=== PATIENT | female | born 1960 | race Caucasian/White ===

== ENCOUNTER 2025-01-28 13:16 | Outpatient (AMB) | payer MEDICARE, SELFPAY ==
--- OUTSIDE RECORDS SUMMARY | 2025-01-23 13:20 | XMS_ITS | Encounter Summary ---
Author Organization [facility] Address [address] [place] [address] [place] [id number] Phone Care Team Providers Care Film Processing Supervisor Name Role Phone Roger Frank MD Unavailable [phone] Edilma Chase MD Unavailable EileenPelon duffy MD Unavailable Pcp, Not Required Unavailable Unavailable Edilma Chase MD Primary Care Provider [phone] Edilma Chase MD Unavailable Reason for Visit * Reason Comments Dysuria * Consultation (Routine) - Authorized Specialty Diagnoses / Procedures Referred By Contrachelle t Referred To Contact Nurse Practitioner / Urgent Care Diagnoses uti Procedures UC VISIT Edilma Chase MD [address] [place] [address], [address] [place] [address] Phone: tel: fax: [email or web address] [facility] [address] [address] Phone: tel: fax: Referral ID Status Reason Start Date Expiration Date V isits Requested Visits Authorized [id number] Authorized 01/23/2025 01/23/2026 99 99 Encounter Details Date Type Department Care Team (Late st Contact Info) Description 01/23/2025 1:20 PM EDT Office Visit [facility] [address] [address] Sherly Contreras PA-C [address] [facility], 3rd [place] [address] Lucretia Dodson, [address] [place] [address] Dysuria (Primary Dx) Social History Tobacco Use Types Packs/Day Years Used Date Smoking Tobacco: Former Cigarettes 0.3 10 0 06/06/2007 - 06/06/2017 Smokeless Tobacco: Never Alcohol Use Standard Drinks/Week Comments Not Currently 2 (1 standard drink = 0.6 oz pur e alcohol) Child or Family Care Answer Date Record ed Do you have problems with on e of the following making it difficult for you to work, study, or receive health care? I choose not to answer 05/05/2024 Education Answer Date Recorded Are you interested in help w ith more adult education (for example, completing high school, GED, job training, learning the [place] language, technical skills, or developing parenting skills)? No 05/05/2024 Are you concerned about learning? Not on file 05/05/2024 No 05/05/2024 Yes 05/05/2024 Food Answer Date Recorded Within the past 6 months we worried whether our food would run out before we got money to buy more. Sometimes True 024 Within the past 6 months the food we bought just didn't last and we didn't have enough money to get more. Often True 04/08 Residential Stability Answer Date Recor ded What is your housing situation today? I have ramona mcdonald 05/05/2024 How many times have you move d in the past 12 months? Zero (I did not move) 05/05/2024 Paying for Meds Answer Date Recorded Do you have trouble paying for medicines? No 05/05/2024 Paying Utility Bills Answer Date Record ed Do you have trouble paying your heating or elect ricity bill? Yes 05/05/2024 Transportation Answer Date Recorded Has the lack of transportati on kept you from medical appointments or from getting medications? No 05/05/2024 Digital Access Answer Date Recorded No 05/05/2024 Yes 05/05/2024 Do you have reliable internet access at home? Ye s 05/05/2024 Do you have a device (e.g., phone, tablet, computer) with a working camera? Yes 05/05/2024 Intimate Partner Violence Answer Date R ecorded Are you denied basic needs s uch as food, clothing, or medical care? No 11/23/2024 In the past 12 months have y ou been in a relationship with a person who hurts, threatens, or tries to control you? No 11/23/2024 Are you denied basic needs s uch as food, clothing, or medical care? No 11/23/2024 In the past 12 months have y ou been in a relationship with a person who hurts, threatens, or tries to control you? No 11/23/2024 Comments No Sex and Gender Information Value Date Recorded Sex Assigned at Female 07/03/2018 1:57 PM EST Legal Sex Female 7:03 PM EST Gender Identity Female 07/03/2018 1:57 PM EST Sexual Orientation Straight 07/03/2018 1: 57 PM EST Occupation Industry Job Start Date Job End Date Retired nurse Not on file Not on file Not on file documented as of this encounter Last Filed Vital Signs Vital Sign Reading Time Taken Comments Blood Pressure 134/84 01/23/2025 1:24 PM EDT Pulse 63 01/23/2025 1:24 PM EDT Temperature 36 C (96.8 F) 01/23/2025 1:24 PM EDT Respiratory Rate 18 01/23/2025 1:24 PM EDT Oxygen Saturation 96% 01/23/2025 1:24 PM EDT Inhaled Oxygen Concentration - - Weight - - Height - - Body Mass Index - - documented in this encounter Patient Instructions * Patient Instructions* Lucretia Dodson NP - 01/23/2025 1:20 PM EDT Discharge Instructions: Pyelonephritis (Kidney Infection) Diagnosis: You have been diagnosed with a kidney infection (pyelonephritis). Medications Take Ciprofloxacin 500 mg by mouth every 12 hours for 7 days Do not skip doses. Finish the entire course even if you feel better. You may take acetaminophen (Tylenol) or ibuprofen for pain or fever unless told otherwise. Self-Care at Home Hydration: Drink plenty of fluids. Water helps flush out bacteria. Rest: Get adequate rest to support healing. Urination: Empty your bladder regularly; do not hold urine. Avoid alcohol while taking antibiotics. If prescribed antibiotics upset your stomach, take with food (but avoid dairy with ciprofloxacin, as it decreases absorption). Follow-Up Follow up with your healthcare provider in 48-72 hours or sooner if your symptoms do not improve. When to Seek Immediate Medical Care ?? Go to the ER or call 911 if you have: Fever >101 F (38.3 C) that does not improve with medication Worsening flank (back or side) pain Nausea or vomiting preventing you from keeping fluids or medications down Confusion, weakness, or dizziness Worsening burning or blood in your urine documented in this encounter Progress Notes * Lucretia Dodson NP - 01/23/2025 1:20 PM EDT SUBJECTIVE Patient ID: Camille Jacobson is a 64 y.o. female Chief Complaint: Dysuria HPI: Patient is a 64-year-old female presenting with 1 week of dysuria accompanied by right-sided back pain and chills. She reports that her symptoms have gradually worsened over the past week despite increasing her hydration and taking Tylenol and ibuprofen. She has a significant history of recurrent urinary tract infections and pyelonephritis, with her last UTI occurring approximately 6 months ago. She follows with urogynecology and has a standing prescription for prophylactic antibiotics with sexual activity. She has previously been hospitalized for severe UTI/pyelonephritis. She denies nausea,vomiting, abdominal pain, or vaginal symptoms. Review of Systems Constitutional: Denies fever. HEENT: Denies sinus congestion, sore throat, blurry vision Respiratory: Denies shortness of breath, cough. Cardiovascular: Denies chest pain, palpitations. Gastrointestinal: Denies abdominal pain, nausea, vomiting, constipation. Endocrine: Denies neck swelling. Genitourinary: Admits frequent urination, dysuria, Denies hematuria, difficulty urinating, flank pain. Musculoskeletal: Denies back pain. Skin: Denies rash. Neurological: Denies dizziness, headache. Hematological: Negative. Psychiatric/Behavioral: Negative. Vitals: 01/23/25 1324 BP: 134/84 Pulse: 63 Resp: 18 Temp: 36 ??C (96.8 ??F) TempSrc: Temporal SpO2: 96% OBJECTIVE Physical Exam Vitals signs reviewed. Constitutional: Appearance: Normal appearance. HEENT: Head: Normocephalic and atraumatic. Eyes: PERRL, conjunctiva and sclera normal. Neck: Trachea midline Cardiovascular: Well-perfused Pulmonary: Respiratory easy Musculoskeletal: Normal range of motion. No edema noted. right-sided CVA tenderness Skin: No erythema, induration, calor, ecchymosis noted. Neurological: Awake, alert, orientated x3. Psychiatric: Mood and Affect: Mood normal. Behavior: Behavior normal. Thought Content: Thought content normal. Judgment: Judgment normal. Results for orders placed or performed in visit on 01/23/25 POCT Urine Dipstick (Automated) Result Value Ref Range COLOR Yellow TURBIDITY Clear GLUCOSE, POCT Negative Negative KETONE, POCT Negative Negative OCCULT BLOOD, POCT Negative Negative SPECIFIC GRAVITY, POCT 1.010 1.001 - 1.030 ALBUMIN, POCT Negative Negative Bili Negative Negative Urobilinogen 0.2 <1.0 NITRITE, POCT Negative Negative PH, POCT 6.5 5.0 - 8.0 WBC SCREEN, POCT Negative Negative Procedure: Procedures Assessment/Plan: Diagnosis Plan 1. Dysuria Urine Culture Assessment: Recurrent complicated urinary tract infection with concern for acute pyelonephritis, given history of recurrent pyelo, dysuria, right-sided flank pain, and systemic symptoms (chills). Plan: Urine culture obtained Empiric antibiotics ciprofloxacin 500 mg p.o. twice daily x 7 days Supportive care: continue oral hydration, Tylenol/ibuprofen for fever/pain Strict ER precautions for worsening pain, persistent fever >101 F, inability to tolerate PO, weakness, dizziness, or confusion Continue scheduled follow-up with urogynecology for recurrent infection management documented in this encounter Plan of Treatment Upcoming Encounters Date Type Department Care Team (Late st Contact Info) Description 02/12/2025 4:30 PM EDT Office Visit [facility] [address] [place] [address] Edilma Chase MD [address] [facility] [address] [place] [address] [email or web address] documented as of this encounter Goals Goal Patient Goal Type Associated Problems Recent Progress Patient-Stated? Author Adhere to treatment plan Care Plan Chronic Condition Self-Management No Yulissa Vigil RN Understand symptoms and warning signs to report to Provider Care Plan Fall/Injury No Yulissa Vigil RN Maximize understanding of chronic condition Care Plan Chronic Condition Self-Management Yulissa Baldwin RN Note: Patient Agrees with goal priority: Yes Patient Self-Management activities for this goal: Health condition self-management activities: Symptom management Task/Interventions: Pt will schedule with [facility] orthopedic documented as of this encounter Procedures Procedure Name Priority Date/Time Associated Diagnosis Comments URINE CULTURE Routine 01/23/2025 1:45 PM EDT Dysuria POCT URINE DIPSTICK Routine 01/23/2025 1 :22 PM EDT documented in this encounter Results * (ABNORMAL) Urine Culture (01/23/2025 1:45 PM EDT) Special Requests None 01/23/2025 1:45 PM EDT [facility] Urine Culture >100,000 colony forming units per mL MIXED ARAM (3 OR MORE COLONY TYPES) Culture indicates contamination . Please resubmit if necessary.(A) 01/25/2025 9:07 AM EDT [facility] Urine (Urine) 01/23/2025 1:4 5 PM EDT 01/23/2025 5:01 PM EDT Comment:URINE us Lucretia Dodson NP MICROBIOLOGY - GENERAL ORD ERABLES Final Result [facility] [address] [place] [address] * POCT Urine Dipstick (Automated) (01/23/2025 1:22 PM EDT) COLOR Yellow [facility] TURBIDITY Clear [facility] GLUCOSE, POCT Negative Negative [facility] KETONE, POCT Negative Negative [facility] OCCULT BLOOD, POCT Negative Negative [facility] SPECIFIC GRAVITY, POCT 1.010 1.001 - 1.030 [facility] ALBUMIN, POCT Negative Negative [facility] Bili Negative Negative [facility] Urobilinogen 0.2 <1.0 [facility] NITRITE, POCT Negative Negative [facility] PH, POCT 6.5 5.0 - 8.0 [facility] WBC SCREEN, POCT Negative Negative [facility] 01/23/2025 1:22 PM EDT 01/23/2025 1:25 PM EDT Sherly Contreras PA-C POINT OF CARE TEST O RDERABLES Final Result [facility] [address] [address], [facility] [phone] documented in this encounter Visit Diagnoses Diagnosis Dysuria- Primary documented in this encounter Additional Health Concerns Active Problems Noted Date Diagnosed Date Chronic Condition Self-Management 02/04/2020 Fall/Injury 02/04/2020 Assessment Noted Time PHQ-2 Depression Total Score: 0 11/24/19 25 1:06 PM EDT documented as of this encounter Care Teams Film Processing Supervisor Relationship Specialty Start Date End Date Edilma Chase MD [address] [place] [address], [address] [place] [address] PCP - General Family Medicine 10/27/23 Roger Frank MD [address] [facility], [address] [place] [address] [email or web address] Historical LMR Provider 03/26/17 Edilma Chase MD [address] [place] [address] [address] [place] [address] [email or web address] Historical LMR Provider 03/26/17 Pelon Arellano MD [address] [facility] [place] [address] [email or web address] Historical LMR Provider 03/26/17 Pcp, Not Required [address] [place] [address] 02/09/23 Edilma Chase MD [address] [place] [address] [address] [place] [address] [email or web address] Insurance Assigned Provider 09/10/23 documented as of this encounter Additional Source Comments The information contained in this document represents components of the legal health record. It is not the complete legal health record.[facility]
--- NOTE | 2025-01-28 13:18 | MHC.OFFVIS ---
Vital Signs 01/28/25 13:20 Height 5 ft 4 in Weight 123 lb BMI 21.1 BP 126/75 Blood Pressure Location Lt brachial Position Sitting Respiration 16 Pulse 72 Pulse Source Pulse Oximeter Pulse Oximetry (%) 96 Oxygen Delivery Method Room Air Intake Visit Reasons: Neuropathy Tire Recapper Required: No Allergies adhesive Adverse Reaction (Intermediate, Verified 01/28/25 13:21) Rash hydromorphone (From Dilaudid) Adverse Reaction (Intermediate, Verified 01/28/25 13:21) Rash erythromycin base Adverse Reaction (Unknown, Verified 01/28/25 13:21) Unknown latex Adverse Reaction (Unknown, Verified 01/28/25 13:21) Unknown morphine Adverse Reaction (Unknown, Verified 01/28/25 13:21) Unknown nitrofurantoin (From Macrobid) Adverse Reaction (Unknown, Verified 01/28/25 13:21) Unknown Sulfa (Sulfonamide Antibiotics) Adverse Reaction (Unknown, Verified 01/28/25 13:21) Unknown Medication List - Last Reconciled 01/28/25 by Fanta Forbes LPN amlodipine 5 mg PO DAILY ascorbic acid (vitamin C) mg PO atorvastatin (Lipitor) 40 mg PO BEDTIME carvedilol 3.125 mg PO BID clonazepam (Klonopin) 1 mg PO BEDTIME ferrous sulfate 325 mg PO DAILY folic acid 1 mg PO DAILY levothyroxine 100 mcg PO DAILY magnesium 200 mg PO DAILY vitamin B complex 1 tab PO DAILY HPI HPI Neuropathy: Details: History of Present Illness The patient is a 64-year-old female presenting with a 4-year history of pain in her hands and feet due to peripheral neuropathy. The pain is described as electric and is associated with weakness, particularly affecting her hands, making simple tasks difficult. The right hand is more affected, with pain radiating from the fingers to the elbow, while the neuropathy in her feet is less severe but progressively worsening. She has tried gabapentin without success and currently uses Klonopin when the pain becomes unbearable. Daily activities such as cooking are challenging, and she experiences episodes of sudden intense pain, sometimes resulting in dropping objects. The patient has been on permanent disability since 2011 due to her condition. She has a history of arthritis, which contributes to her joint pain, and anemia, for which she takes B12, iron, and folic acid supplements. She has undergone a full body MRI, which did not reveal any significant findings related to her current symptoms. She has also tried various supplements and medications, including sertraline, without significant relief. Pain Description - Onset: 4 years ago - Quality: Electric, burning, stabbing, pins and needles - Location: Hands and feet, right hand more affected, radiating to elbow - Exacerbating factors: Simple tasks, holding objects - Relieving factors: Klonopin, smoking a joint - Interference: Daily activities, cooking, driving Physical Exam - Appears afebrile. - Alert and oriented. - Mood and affect appropriate. - Follows and participates in conversation appropriately. - Respiratory effort is unlabored. - Able to transition from sit to stand unassisted. Pain Management - Affect: Pain impacts daily activities and causes frustration. - Analgesia: Uses Klonopin for severe pain, gabapentin was ineffective. - Adverse Effects: None reported from current medications. - Activities of Daily Living: Difficulty with cooking, driving, and other tasks. - Aberrant Drug Related Behaviors: None reported. [facility] Medical History (Updated 01/10/25 @ 14:08 by Fanta Forbes LPN) Primary insomnia Medial epicondylitis, right elbow Chronic obstructive pulmonary disease, unspecified CALI (generalized anxiety disorder) Unspecified asthma, uncomplicated Encounter for screening for osteoporosis Encounter for screening mammogram for malignant neoplasm of breast Hypertension Depression Neuropathy Physical Exam Vital Signs: Last Vital Signs Pulse 72 01/28/25 13:20 Resp 16 01/28/25 13:20 BP 126/75 01/28/25 13:20 Pulse Ox 96 01/28/25 13:20 Oxygen Delivery Method Room Air 01/28/25 13:20 BMI result Body Mass Index 21.1 Assessment & Plan Assessment & Plan (1) Neuropathy: Code(s): G62.9 - Polyneuropathy, unspecified Category: Medical Plan Plan - Consider participation in a trial for magnetic PNS as a potential treatment option. - Explore alternative supplements such as alpha-lipoic acid, NAC and acetylcarnitine for neuropathy management. - Continue current medication regimen and monitor for any changes in symptoms or side effects. Patient was informed and verbally consented to the use of an ambient scribe for clinic note documentation during this visit. Discussion Notes I discussed with the patient the potential for participating in a trial for magnetic nerve stimulation, which has shown promise in managing neuropathy symptoms. We also reviewed alternative supplements such as alpha-lipoic acid and acetylcarnitine, which may offer additional relief. The patient was advised to continue her current medication regimen and to report any changes in symptoms or side effects. Patient Instructions - Consider participating in the magnetic nerve stimulation trial if contacted. - Try alternative supplements like alpha-lipoic acid and acetylcarnitine one at a time to assess effectiveness. - Continue current medications and report any changes in symptoms or side effects. Coding Level of Care Code New Pt Level 4 (37354) Diagnoses Neuropathy G62.9
[2025-01-28 13:20] VITALS: BP 126/75; PULSE 72; RESP 16; O2SAT 96; BMI 21.1
--- OUTSIDE RECORDS SUMMARY | 2025-01-28 14:34 | XMS_ITS | Encounter Summary ---
Author Organization [facility] Address [address] [place] [phone] Phone Care Team Providers Care Pulley Worker Name Role Phone Larry Payne MD Unavailable Roger Frank MD Unavailable Felipe Brooks MD Unavailable [phone] Tr West MD Unavailable [phone] Mannie Pino PA-C Unavailable +[phone] Yulissa Purvis DO Unavailable [phone] Unavailable [email or web address] Eloina Ash MD Unavailable Edilma Chase MD Unavailable +[phone] Maribell Mendoza MD Unavailable +[phone] Pelon Arellano MD Unavailable Gaye Pate [facility] Primary Care Provider +[phone] Luh Ayala MD Unavailable [phone] Yulissa Vigil RN Unavailable [phone] Elizabeth Batista Unavailable +[phone] Elizabeth Batista Unavailable [phone] Elizabeth Batista Unavailable [phone] Rama Batistas Unavailable +[phone] Rama Batistas Unavailable [phone] Rama Batistas Unavailable Lester Elizabeth Unavailable [phone] Chan Jacobo MD Unavailable Edilma Chase MD Primary Care Provider [phone] Pcp, Not Required Unavailable Unavailable Edilma Chase MD Unavailable +[phone] Edilma Chase MD Unavailable [phone] Edilma Chase MD Primary Care Provider [phone] Edilma Chase MD Primary Care Provider [phone] Edilma Chase MD Unavailable +[phone] Elizabeth Batista Unavailable [phone] Encounter Details Date Type Department Care Team (Late st Contact Info) Description 05/22/2019 Procedure Pass [address] [place] [address] Social History Tobacco Use Types Packs/Day Years Used Date Smoking Tobacco: Former Cigarettes Q uit: 2018 Smokeless Tobacco: Never Alcohol Use Standard Drinks/Week Comments No 0 (1 standard drink = 0.6 oz pur e alcohol) Comments No Sex and Gender Information Value Date Recorded Sex Assigned at Female 07/03/2018 1:57 PM EST Legal Sex Female 7:03 PM EST Gender Identity Female 07/03/2018 1:57 PM EST Sexual Orientation Straight 07/03/2018 1: 57 PM EST documented as of this encounter Last Filed Vital Signs Vital Sign Reading Time Taken Comments Blood Pressure - - Pulse - - Temperature - - Respiratory Rate - - Oxygen Saturation - - Inhaled Oxygen Concentration - - Weight 59 kg (130 lb) 05/25/2019 10:50 AM EST Height 160 cm (5' 3 ) 05/25/2019 10:50 AM EST Body Mass Index 23.03 05/25/2019 10:50 AM EST documented in this encounter Plan of Treatment Upcoming Encounters Date Type Department Care Team (Late st Contact Info) Description 02/12/2025 4:30 PM EDT Office Visit [facility] [address] [place] [address] Edilma Chase MD [address] [address] [email or web address] documented as of this encounter Visit Diagnoses Not on filedocumented in this encounter Additional Health Concerns Infection Onset Date Last Indicated Resolved Time CoV-Risk 07/29/2020 07/29/2020 07/30/2020 9:55 PM EST COVID-19 07/29/2020 07/29/2020 08/18/2020 1:23 AM EDT CoV-Risk Comment:Per note documentation 06/02/2021 06/02/2021 9:57 AM EST CoV-Presumed 02/25/2022 02/25/2022 03/18/2022 1:23 AM EDT CoV-Risk Comment:Per Ambulatory Triage Form 06/04/2024 06/05/202406/16 1:22 AM EST CoV-Risk 07/20/2024 07/20/2024 07/31/2024 1:21 AM EST CDiff-Risk 10/18/2024 10/18/2024 10/25/2024 1:21 AM EDT documented as of this encounter Care Teams Pulley Worker Relationship Specialty Start Date End Date Gaye Pate CNP [address] [facility], 2nd [place] [address] [email or web address] PCP - General 06/21/17 01/27/23 Edilma Chase MD [address] [place] [address] 7 [place] [address] [email or web address] PCP - General Family Medicine 01/28/23 01/31/23 Edilma Chase MD [address] [place] [address] 7 [place] [address] [email or web address] PCP - General Family Medicine 02/09/23 03/28/23 Edilma Chase MD [address] [place] [address] 7 [place] [address] [email or web address] PCP - General Family Medicine 04/01/23 Larry Payne MD [address] [place] [address] 1st Floor [address] [place] [address] Historical LMR Provider 03/26/17 2 Roger Frank MD [address] [place] [address] [address] [place] [address] [email or web address] Historical LMR Provider 03/26/17 Felipe Brooks MD [address] [place] [address] Historical LMR Provider 03/26/17 Tr West MD [address] [place] [address] [email or web address] Historical LMR Provider 03/26/17 06/13/21 Mannie Pino PA-C [address] [place] [address] Orthopedics & Sports Medicine, [facility] [place] [address] [email or web address] Historical LMR Provider 03/26/17 06/13/21 Yulissa Purvis DO [address] [place] [address] Historical LMR Provider 03/26/17 2 Jessi Rivero, RDCS Historical LMR Provider 03/26/17 06/13/21 Eloina Ash MD [address] [place] [address] Orthopedics & Sports [facility], [facility] [place] [address] Historical LMR Provider 03/26/17 Edilma Chase MD [address] [place] [address] 7 [place] [address] [email or web address] Historical LMR Provider 03/26/17 Maribell Mendoza MD [address] [place] [address] Orthopedics Sports [facility], [place] [address] Historical LMR Provider 03/26/17 06/13/21 Pelon Arellnao MD [address] [place], [place] [address] [place] [phone] [email or web address] Historical LMR Provider 03/26/17 Luh Ayala MD [address] [place] [address] 7 [place], [place] [phone] [email or web address] Insurance Assigned Provider 09/03/17 09/11/22 Yulissa Vigil, RN [address] [place] [phone] [employer] Book Reviewer 12/12/19 12/25/24 Elizabeth Batista [address] [place], [place] [phone] [facility] Community Health Worker 02/28/20 04/16/20 Elizabeth Batista [address] [place] [address], [place] [address] [email or web address] Community Health Worker 07/17/20 02/23/21 Elizabeth Batista [address] [place] [address], [place] [address] [email or web address] Community Health Worker 07/09/21 07/23/21 Elizabeth Batista [address] [place] [address], [place] [address] [email or web address] Community Health Worker 07/09/21 11/04/21 Elizabeth Batista [address] [place] [address], [place] [address] [email or web address] Community Health Worker 10/29/21 01/31/22 Elizabeth Batista [address] [place] [address], [place] [address] [email or web address] 03/01/22 03/03/22 Elizabeth Batista [address] [place] [address], [place] [address] [email or web address] Community Health Worker 04/26/22 06/02/22 Chan Jacobo MD [address] [place] [address] 7 [place] [address] [email or web address] Insurance Assigned Provider 09/11/22 09/10/23 Pcp, Not Required [address] [place] [id number] 02/09/23 Edilma Chase MD [address] [place] [address] 7 [place] [address] [email or web address] Family Medicine 02/09/23 03/28/23 Edilma Chaes MD [address] [place] [address] 7 [place] [address] [email or web address] Family Medicine 02/09/23 03/28/23 Edilma Chase MD [address] [place] [address], [address] [place] [address] [email or web address] Insurance Assigned Provider 09/10/23 Elizabeth Batista [address] [place] [address] [email or web address] [facility] Community Health Worker 11/18/23 01/22/24 documented as of this encounter Additional Source Comments The information contained in this document represents components of the legal health record. It is not the complete legal health record.[facility]
--- OUTSIDE RECORDS SUMMARY | 2025-01-28 14:34 | XMS_ITS | Encounter Summary ---
Author Organization [facility] Address [address] [place] [address] Phone Care Team Providers Care Site Medical Director Name Role Phone Larry Payne MD Unavailable Roger Frank MD Unavailable [phone] Felipe Brooks MD Unavailable [phone] Tr West MD Unavailable [phone] Mannie Pino PA-C Unavailable +[phone] Yulissa Purvis DO Unavailable [phone] Unavailable [email or web address] Eloina Ash MD Unavailable Edilma Chase MD Unavailable [phone] Maribell Mendoza MD Unavailable +[phone] Pelon Arellano MD Unavailable Gaye Pate [facility] Primary Care Provider +[phone] Luh Ayala MD Unavailable [phone] Yulissa Vigil RN Unavailable [phone] Elizabeth Batista Unavailable [phone] Elizabeth Batista Unavailable [phone] Elizabeth Batista Unavailable [phone] Elizabeth Batista Unavailable +[phone] Elizabeth Batista Unavailable [phone] Elizabeth Batista Unavailable [phone] Elizabeth Batista Unavailable [phone] Chan Jacobo MD Unavailable Edilma Chase MD Primary Care Provider [phone] Pcp, Not Required Unavailable Unavailable Edilma Chase MD Unavailable [phone] Edilma Chase MD Unavailable [phone] Edilma Chase MD Primary Care Provider [phone] Edilma Chase MD Primary Care Provider [phone] Edilma Chase MD Unavailable Elizabeth Batista Unavailable [phone] Encounter Details Date Type Department Care Team (Late st Contact Info) Description 02/05/2020 Procedure [address] [place] [address] Social History Tobacco Use Types Packs/Day Years Used Date Smoking Tobacco: Some Days Cigarettes Last attempted to quit: 2018 Smokeless Tobacco: Never Alcohol Use Standard Drinks/Week Comments Yes 0 (1 standard drink = 0.6 oz [...] on file documented as of this encounter Plan of Treatment Upcoming Encounters Date Type Department Care Team (Late st Contact Info) Description 02/12/2025 4:30 PM EDT Office Visit [facility] [address] [facility] [place] [phone] Edilma Chase MD 234 [facility], [address] [place], [place] [phone] [email or web address] documented as of this encounter Goals Goal Patient Goal Type Associated Problems Recent Progress Patient-Stated? Author Adhere to treatment plan Care Plan Chronic Condition Self-Management No Yulissa Vigil RN Understand symptoms and warning signs to report to Provider Care Plan Fall/Injury No Yulissa Vigil RN documented as of this encounter Visit Diagnoses Not on filedocumented in this encounter Additional Health Concerns Active Problems Noted Date Diagnosed Date Chronic Condition Self-Management 02/04/2020 Fall/Injury 02/04/2020 Infection Onset Date Last Indicated Resolved Time [...] documented as of this encounter Care Teams Site Medical Director Relationship Specialty Start Date End Date Gaye Pate CNP [address] [place] [address], 2nd [place] [address] [email or web address] PCP - General 06/21/17 01/27/23 Edilma Chase MD [address] [place] [address] 7 [place] [address] [email or web address] PCP - General Family Medicine 01/28/23 01/31/23 Edilma Chase MD 234 [facility] 7 [place] [address] [email or web address] PCP - General Family Medicine 02/09/23 03/28/23 Edilma Chase MD 234 [facility] 7 [place] [address] [email or web address] PCP - General Family Medicine 04/01/23 Larry Payne MD [address] [facility] 1st Floor [address] [address] Historical LMR Provider 03/26/17 2 Roger Frank MD [address] [place] [address] [email or web address] Historical LMR Provider 03/26/17 Felipe Brooks MD [address] [place] [address] Historical LMR Provider 03/26/17 Tr West MD [address] [place] [address] [email or web address] Historical LMR Provider 03/26/17 06/13/21 Mannie Pino PA-C [address] [place] [address] Orthopedics & Sports Medicine, [place] [address] [email or web address] Historical LMR Provider 03/26/17 06/13/21 Yulissa Purvis DO [address] [place] [address] Historical LMR Provider 03/26/17 2 Jessi Rivero, RDCS Historical LMR Provider 03/26/17 06/13/21 Eloina Ash MD [address] [place] [address] Orthopedics Sports [facility], [place] [address] Historical LMR Provider 03/26/17 Edilma Chase MD [address] [place] [address] 7 [place] [address] [email or web address] Historical LMR Provider 03/26/17 Maribell Mendoza MD [address] [place] [address] Orthopedics [facility], [place] [address] [email or web address] Historical LMR Provider 03/26/17 06/13/21 Pelon Arellano MD [address] [place], [place] [address] [place] [phone] [email or web address] Historical LMR Provider 03/26/17 Luh Ayala MD [address] [place] [address] 7 [place] [address] [email or web address] Insurance Assigned Provider 09/03/17 09/11/22 Yulissa Vigil, RN [address] [place] [phone] [email or web address] [employer] Carpentry Teacher 12/12/19 12/25/24 Elizabeth Batista [address] [place] [phone] [email or web address] Community Health Worker 02/28/20 04/16/20 Elizabeth Batista [address] [place] [address], [place] [address] [email or web address] Community Health Worker 07/17/20 02/23/21 Elizabeth Batista [address] [place] [address], [place] [address] [email or web address] Community Health Worker 07/09/21 07/23/21 Elizabeth Batista [address] [place] [address], [place] [address] [email or web address] Community Health Worker 07/09/21 11/04/21 Elizabeth Batista [address] [place] [address], [place] [address] [email or web address] Community Health Worker 10/29/21 01/31/22 Elizabeth Batista [address] [place] [address] [email or web address] 03/01/22 03/03/22 Elizabeth Batista [address] [place] [address], [place] [address] [email or web address] Community Health Worker 04/26/22 06/02/22 Chan Jacobo MD [address] [place] [address] 7 [place] [address] [email or web address] Insurance Assigned Provider 09/11/22 09/10/23 Pcp, Not Required [address] [place] [address] 02/09/23 Edilma Chase MD [address] [place] [address] 7 [place] [address] [email or web address] Family Medicine 02/09/23 03/28/23 Edilma Chase MD [address] [place] [address] 7 [place] [address] [email or web address] Family Medicine 02/09/23 03/28/23 Edilma Chase MD [address] [place] [address] 7 [place] [address] [email or web address] Insurance Assigned Provider 09/10/23 Elizabeth Batista [address] [place] [address] [email or web address] Community Health Worker 11/18/23 01/22/24 documented as of this encounter Additional Source Comments The information contained in this document represents components of the legal health record. It is not the complete legal health record.[facility]
--- OUTSIDE RECORDS SUMMARY | 2025-01-28 14:35 | XMS_ITS | Encounter Summary ---
Author Organization [facility] Address [address] [place] [address] Phone Care Team Providers Care Earth Science Teacher Name Role Phone Larry Payne MD Unavailable Roger Frank MD Unavailable Felipe Brooks MD Unavailable [phone] Tr West MD Unavailable [phone] Mannie Pino PA-C Unavailable +[phone] Yulissa Purvis DO Unavailable +[phone] Unavailable [email or web address] Eloina Ash MD Unavailable Edilma Chase MD Unavailable +[phone] Maribell Mendoza MD Unavailable +[phone] Pelon Arellano MD Unavailable Gaye Pate [facility] Primary Care Provider +[phone] Luh Ayala MD Unavailable [phone] Yulissa Vigil RN Unavailable +[phone] Elizabeth Batista Unavailable +[phone] Elizabeth Batista Unavailable [phone] Elizabeth Batista Unavailable +[phone] Elizabeth Batista Unavailable +[phone] Elizabeth Batista Unavailable [phone] Chan Jacobo MD Unavailable Edilma Chase MD Primary Care Provider [phone] Pcp, Not Required Unavailable Unavailable Edilma Chase MD Unavailable [phone] Edilma Chase MD Unavailable +[phone] Edilma Chase MD Primary Care Provider [phone] Edilma Chase MD Primary Care Provider [phone] Edilma Chase MD Unavailable +[phone] Elizabeth Batista Unavailable + [phone] Encounter Details Date Type Department Care Team (Late st Contact Info) Description 06/09/2021 Procedure Pass MRI, [facility] Imaging - [address], [address] [place] [address] Social History Tobacco Use Types Packs/Day Years [...] to work, study, or receive health care? No 09/15/2020 Education Answer Date Recorded Are you interested in help w ith more adult education (for example, completing high school, GED, job training, learning the Barbadian language, technical skills, or developing parenting skills)? I choose not to answer 09/15/2020 Food Answer Date Recorded Within the past 6 months we worried whether our food would run out before we got money to buy more. Never True 021 Within the past 6 months the food we bought just didn't last and we didn't have enough money to get more. Sometimes True 09/04 Paying for Meds Answer Date Recorded Do you have trouble paying for medicines? No 09/15/2020 Paying Utility Bills Answer Date Record ed Do you have trouble paying your heating or elect ricity bill? No 09/15/2020 Transportation Answer Date Recorded Has the lack of transportati on kept you from medical appointments or from getting medications? No 09/15/2020 Comments No Sex and Gender Information Value [...] Description 02/12/2025 4:30 PM EDT Office Visit [facility] [address] [place] [address] Edilma Chase MD [address] [facility], [address] [place] [address] [email or web address] documented as of this encounter Goals [...] Onset Date Last Indicated Resolved Time CoV-Risk Comment:Per note documentation 06/02/2021 06/02/2021 9:57 AM EST CoV-Presumed 02/25/2022 02/25/2022 03/18/2022 1:23 AM EDT CoV-Risk Comment:Per Ambulatory Triage Form 06/04/2024 06/05/202406/16 1:22 AM EST CoV-Risk 07/20/2024 07/20/2024 07/31/2024 1:21 AM EST CDiff-Risk 10/18/2024 10/18/2024 10/25/2024 1:21 AM EDT documented as of this encounter Care Teams Earth Science Teacher Relationship Specialty Start Date End Date Gaye PateCLAU [address] [facility], 2nd [place] [address] [email or web address] PCP - General 06/21/17 01/27/23 Edilma Chase MD [address] [place] [address] 7 [place] [address] [email or web address] PCP - General Family Medicine 01/28/23 01/31/23 Edilma Chase MD [address] [place] [address] [email or web address] PCP - General Family Medicine 02/09/23 03/28/23 Edilma Chase MD [address] [place] [address] 7 [place] [address] [email or web address] PCP - General Family Medicine 04/01/23 Larry Payne MD [address] [place] [address] 1st Floor [address] [place] [address] Historical LMR Provider 03/26/17 2 Roger Frank MD [address] [facility], [address] [place] [address] [email or web address] Historical LMR Provider 03/26/17 Felipe Brooks MD [address] [place] [address] Historical LMR Provider 03/26/17 Tr West MD [address] [place] [address] [email or web address] Historical LMR Provider 03/26/17 06/13/21 Mannie Pino PA-C [address] [place] [address] [facility] [place] [place] [address] Historical LMR Provider 03/26/17 06/13/21 Yulissa Purvis DO [address] [place] [address] Historical LMR Provider 03/26/17 2 Jessi Rivero, RDCS Historical LMR Provider 03/26/17 06/13/21 Eloina Ash MD [address] [place] [address] [facility] [place] [place] [address] Historical LMR Provider 03/26/17 Edilma Chase MD [address] [place] [address], [address] [place] [address] Historical LMR Provider 03/26/17 Maribell Mendoza MD [address] [place] [address] [facility] [place] [place] [address] Historical LMR Provider 03/26/17 06/13/21 Pelon Arellano MD [address] [place] [address] [address] [place] [phone] [email or web address] Historical LMR Provider 03/26/17 Luh Ayala MD 234 [facility] 7 [place] [address] [email or web address] Insurance Assigned Provider 09/03/17 09/11/22 Yulissa Vigil RN [address] [place] [address] [email or web address] [facility] Corporate Licensed Broker 12/12/19 12/25/24 Elizabeth Batista [address] [place] [address] [email or web address] [facility] Community Health Worker 07/09/21 07/23/[address] [address] [email or web address] [facility] Community Health Worker 07/09/21 11/04/[address] [place] [address] [email or web address] Community Health Worker 10/29/21 01/31/[address] [address] 03/01/22 03/03/[address] [address] [email or web address] [facility] Community Health Worker 04/26/22 06/02/22 Chan Jacobo MD [address] [place] [address] 7 [place] [address] [email or web address] Insurance Assigned Provider 09/11/22 09/10/23 Pcp, Not Required [address] [place] [address] 02/09/23 Edilma Chase MD [address] [place] [address] 7 [place] [address] [email or web address] Family Medicine 02/09/23 03/28/23 Edilma Chase MD [address] [place] [address] 7 [place] [address] [email or web address] Family Medicine 02/09/23 03/28/23 Edilma Chase MD [address] [place] [address] [email or web address] Insurance Assigned Provider 09/10/23 Elizabeth Batista 10 [place] [address] [email or web address] Community Health Worker 11/18/23 01/22/24 documented as of this encounter Additional Source Comments The information contained in this document represents components of the legal health record. It is not the complete legal health record.[facility]
--- OUTSIDE RECORDS SUMMARY | 2025-01-28 14:35 | XMS_ITS | Encounter Summary ---
Author Organization [facility] Address [address] [place] [address] Phone Care Team Providers Care Bulker Name Role Phone Roger Frank MD Unavailable Edilma Chase MD Unavailable [phone] Pelon Arellano MD Unavailable [phone] Gyae Pate CNP Primary Care Provider [phone] Luh Ayala MD Unavailable [phone] Yulissa Vigil RN Unavailable [phone] Elizabeth Batista Unavailable [phone] Elizabeth Batista Unavailable [phone] Elizabeth Batista Unavailable [phone] Elizabeth Batista Unavailable [phone] Elizabeth Batista Unavailable [phone] Chan Jacobo MD Unavailable Edilma Chase MD Primary Care Provider [phone] Pcp, Not Required Unavailable Unavailable Edilma Chase MD Unavailable [phone] Edilma Chase MD Unavailable [phone] Edilma Chase MD Primary Care Provider [phone] Edilma Chase MD Primary Care Provider Edilma Chase MD Unavailable [phone] Elizabeth Batista Unavailable [phone] Encounter Details Date Type Department Care Team (Late st Contact Info) Description 07/22/2021 Transcribe Orders [facility] [address] [place] [address] [place] [address] [facility] [address] [place] [address] [email or web address] Social History Tobacco Use Types Packs/Day Years Used Date Smoking Tobacco: Some Days Cigarettes Last attempted to quit: 2017 Smokeless Tobacco: Never Alcohol Use Standard Drinks/Week [...] high school, GED, job training, learning the Venezuelan language, technical skills, or developing parenting skills)? [...] Description 02/12/2025 4:30 PM EDT Office Visit [facility] [address] [place] [address] Edilma Chase MD [address] [address] [email or web address] documented as of this encounter Goals Goal Patient Goal Type Associated Problems Recent Progress Patient-Stated? Author Adhere to treatment plan Care Plan Chronic Condition Self-Management Yulissa Baldwin RN Understand symptoms and warning signs to report to Provider Care Plan Fall/Injury No Yulissa Vigil RN documented as of this encounter Visit Diagnoses Not on filedocumented in this encounter Additional Health Concerns Active Problems Noted Date Diagnosed Date Chronic Condition Self-Management 02/04/2020 Fall/Injury 02/04/2020 Infection Onset Date Last Indicated Resolved Time CoV-Presumed 02/25/2022 02/25/2022 03/18/2022 1:23 AM EDT CoV-Risk Comment:Per Ambulatory Triage Form 06/04/2024 06/05/202406/16 1:22 AM EST CoV-Risk 07/20/2024 07/20/2024 07/31/2024 1:21 AM EST CDiff-Risk 10/18/2024 10/18/2024 10/25/2024 1:21 AM EDT documented as of this encounter Care Teams Bulker Relationship Specialty Start Date End Date Gaye Pate CNP [address] [facility], 2nd [place] [address] PCP - General 06/21/17 01/27/23 Edilma Chase MD [address] [place] [address] 7 [place] [address] PCP - General Family Medicine 01/28/23 01/31/23 Edilma Chase MD [address] [place] [address] 7 [place] [address] [email or web address] PCP - General Family Medicine 02/09/23 03/28/23 Edilma Chase MD [address] [place] [address] 7 [place] [address] [email or web address] PCP - General Family Medicine 04/01/23 Roger Frank MD [address] [place] [address] [email or web address] Historical LMR Provider 03/26/17 Edilma Chase MD [address] [place] [address] 7 [place] [address] [email or web address] Historical LMR Provider 03/26/17 Pelon Arellano MD [address] [place], [place] [address] [place] [address] [email or web address] Historical LMR Provider 03/26/17 Luh Ayala MD [address] [place] [address] [email or web address] Insurance Assigned Provider 09/03/1709/11/22 Yulissa Vigil, RN [address] [place] [address] [phone] [email or web address] i[employer] Medical Technologist Clinical 12/12/19 12/25/24 Elizabeth Batista [address] [place] [address] [phone] [email or web address] [facility] Community Health Worker 07/09/21 07/23/21 Elizabeth Batista [address] [place] [address] [email or web address] Community Health Worker 07/09/21 11/04/21 Elizabeth Batista [address] [place] [address], [place] [address] [email or web address] Community Health Worker 10/29/21 01/31/22 Elizabeth Batista [address] [place] [address], [place] [address] 03/01/22 03/03/22 Elizabeth Batista [address] [place] [address] [email or web address] [facility] Community Health Worker 04/26/22 06/02/22 Chan Jacobo MD [address] [place] [address] 7 [place] [address] [email or web address] Insurance Assigned Provider 09/11/22 Pcp, Not Required [address] [place] [address] 02/09/23 Edilma Chase MD [address] [place] [address] 7 [place] [address] [email or web address] Family Medicine 02/09/23 03/28/23 Edilma Chase MD [address] [place] [address] 7 [place] [address] [email or web address] Family Medicine 02/09/23 03/28/23 Edilma Chase MD [address] [place] [address] 7 [place] [address] [email or web address] Insurance Assigned Provider 09/10/23 Elizabeth Batista [address] [place] [address] [email or web address] [employer] Community Health Worker 11/18/23 01/22/24 documented as of this encounter Additional Source Comments The information contained in this document represents components of the legal health record. It is not the complete legal health record.[facility]
--- OUTSIDE RECORDS SUMMARY | 2025-01-28 14:35 | XMS_ITS | Encounter Summary ---
Author Organization [facility] Address [address] [place] [address] Phone Care Team Providers Care Industrial Energy Engineer Name Role Phone Larry Payne MD Unavailable [phone] Roger Frank MD Unavailable Felipe Brooks MD Unavailable [phone] Tr West MD Unavailable [phone] Mannie Pino PA-C Unavailable +[phone] Yulissa Purvis DO Unavailable [phone] Unavailable [email or web address] Eloina Ash MD Unavailable Edilma Chase MD Unavailable [phone] Maribell Mendoza MD Unavailable +[phone] Pelon Arellano MD Unavailable Gaye Pate [facility] Primary Care Provider +[phone] Luh Ayala MD Unavailable [phone] Yulissa Vigil RN Unavailable [phone] Elizabeth Batista Unavailable [phone] Elizabeth Batista Unavailable [phone] Lester, Elizabeth Unavailable +[phone] Elizabeth Batista Unavailable [phone] Elizabeth Batista Unavailable Elizabeth Batista Unavailable [phone] LesterRamas Unavailable [phone] Chan Jacobo MD Unavailable Edilma Chase MD Primary Care Provider Pcp, Not Required Unavailable Unavailable Edilma Chase MD Unavailable [phone] Edilma Chase MD Unavailable [phone] Edilma Chase MD Primary Care Provider [phone] Edilma Chase MD Primary Care Provider [phone] Edilma Chase MD Unavailable Elizabeth Batista Unavailable [phone] Encounter Details Date Type Department Care Team (Late st Contact Info) Description 02/05/2020 Procedure Pass [facility], Ct Scan - [facility] [address] [place] [address] Social History Tobacco Use Types Packs/Day Years [...] Description 02/12/2025 4:30 PM EDT Office Visit [facility] Medicine [address] [place], [place] [phone] Edilma Chase MD 234 [facility], [address] [place], [place] [phone] [email or web address] documented as of this encounter Goals Goal [...] documented as of this encounter Care Teams Industrial Energy Engineer Relationship Specialty Start Date End Date Gaye Pate CNP [address] [place] [address], 2nd [place] [address] [email or web address] PCP - General 06/21/17 01/27/23 Edilma Chase MD [address] [place] [address] 7 [place] [address] [email or web address] PCP - General Family Medicine 01/28/23 01/31/23 Edilma Chase MD 234 [facility] 7 [place] [address] [email or web address] PCP - General Family Medicine 02/09/23 03/28/23 Edilma Chase MD 234 [facility] 7 [place] [address] [email or web address] PCP - General Family Medicine 04/01/23 Larry Payne MD 50 [facility] 1st Floor [address] [address] Historical LMR Provider 03/26/17 2 Roger Frank MD [address] [place] [address] [email or web address] Historical LMR Provider 03/26/17 Felipe Brooks MD [address] [place] [address] Historical LMR Provider 03/26/17 Tr West MD [address] [place] [address] [email or web address] Historical LMR Provider 03/26/17 06/13/21 Mannie Pino PA-C [address] [place] [address] [facility], [place] [address] [email or web address] Historical LMR Provider 03/26/17 06/13/21 uYlissa Purvis DO [address] [place] [address] Historical LMR Provider 03/26/17 2 Jessi Rivero, RDCS Historical LMR Provider 03/26/17 06/13/21 Eloina Ash MD [address] [place] [address] [facility], [place] [address] Historical LMR Provider 03/26/17 Edilma Chase MD [address] [place] [address] 7 [place] [address] [email or web address] Historical LMR Provider 03/26/17 Maribell Mendoza MD [address] [place] [address] [facility], [place] [address] [email or web address] Historical LMR Provider 03/26/17 06/13/21 Pelon Arellano MD [address] [place], [place] [address] [place] [phone] [email or web address] Historical LMR Provider 03/26/17 Luh Ayala MD [address] [place] [address] 7 [place] [address] [email or web address] Insurance Assigned Provider 09/03/17 09/11/22 Yulissa Vigil, RN [address] [place] [address] [phone] [email or web address] iCMP Combine Inspector 12/12/19 12/25/24 Elizabeth Batista [address] [place] [address] [phone] [email or web address] Community Health Worker 02/28/20 04/16/20 Elizabeth Batista [address] [place] [address], [place] [address] [email or web address] Community Health Worker 07/17/20 02/23/21 Elizabeth Batista [address] [place] [address], [place] [address] [email or web address] Community Health Worker 07/09/21 07/23/21 Elizabeth Baitsta [address] [place] [address], [place] [address] [email or web address] Community Health Worker 07/09/21 11/04/21 Elizabeth Batista [address] [place] [address], [place] [address] [email or web address] Community Health Worker 10/29/21 01/31/22 Elizabeth Batista [address] [place] [address] [email or web address] 03/01/22 03/03/22 Elizabeth Batista [address] [place] [address], [place] [address] [email or web address] Community Health Worker 04/26/22 06/02/22 Chan Jacobo MD [address] [place] [address] 7 [place] [address] [email or web address] Insurance Assigned Provider 09/11/22 09/10/23 Pcp, Not Required [address] [place] [address] 02/09/23 Edilma Chase MD [address] [place] [address] 7 [place] [address] [email or web address] Family Medicine 02/09/23 03/28/23 Edilma Chase MD [address] [place] [address] 7 [place] [address] [email or web address] 02/09/23 03/28/23 Edilma Chase MD [address] [place] [address] 7 [place] [address] [email or web address] Insurance Assigned Provider 09/10/23 Elizabeth Batista 10 [place] [address] [email or web address] iCMP Community Health Worker 11/18/23 01/22/24 documented as of this encounter Additional Source Comments The information contained in this document represents components of the legal health record. It is not the complete legal health record.[facility]
--- OUTSIDE RECORDS SUMMARY | 2025-01-28 14:35 | XMS_ITS | Encounter Summary ---
Author Organization [facility] Address [address] [place] [address] [address] [place] [address] Phone Care Team Providers Care Transitional Kindergarten Teacher Name Role Phone Roger Frank MD Unavailable Edilma Chase MD Unavailable Pelon Arellano MD Unavailable Yulissa Vigil RN Unavailable Pcp, Not Required Unavailable Unavailable Edilma Chase MD Primary Care Provider Edilma Chase MD Unavailable Elizabeth Batista Unavailable [phone] Encounter Details Date Type Department Care Team (Latest Contact Info) Description 01/05/2024 Transcribe Orders Virtual Department [address] [place] [address] Edilma Chase MD [address] [place] [address], [address] [place], [place] [id number] [email or web address] Breast screening (Primary Dx) Social History Tobacco Use Types [...] work, study, or receive health care? No 05/26/2023 Education Answer Date Recorded Are you interested in help w ith more adult education (for example, completing high school, GED, job training, learning the [place] language, technical skills, or developing parenting skills)? No 05/26/2023 Are you concerned about learning? Not on file 05/26/2023 No 05/26/2023 Yes 05/26/2023 Food Answer Date Recorded Within the past 6 months we worried whether our food would run out before we got money to buy more. Often True 05/26/2023 Within the past 6 months the food we bought just didn't last and we didn't have enough money to get more. Often True Residential Stability Answer Date Recor ded What is your housing situation today? I have ramona mcdonald 05/26/2023 Number of times moved in last year Not on file 05/26/2023 Paying for Meds Answer Date Recorded Do you have trouble paying for medicines? No 05/26/2023 Paying Utility Bills Answer Date Record ed Do you have trouble paying y our heating or electricity bill? I choose not to answer 05/26/2023 Transportation Answer Date Recorded Has the lack of transportati on kept you from medical appointments or from getting medications? No 05/26/2023 Digital Access Answer Date Recorded No 05/26/2023 Yes 05/26/2023 Do you have reliable internet access at home? Ye s 05/26/2023 Do you have a device (e.g., phone, tablet, computer) with a working camera? Yes 05/26/2023 Comments No Sex and Gender Information Value [...] Upcoming Encounters Date Type Department Care Team (Jesus st Contact Info) Description 02/12/2025 4:30 PM EDT Office Visit [facility] [address] [address] Edilma Chase MD [address] [facility], [address] [place] [address] [email or web address] documented as of this encounter Goals Goal Patient Goal Type Associated Problems Recent Progress Patient-Stated? Author Adhere to treatment plan Care Plan Chronic Condition Self-Management Yulissa Baldwin RN Understand symptoms and warning signs to report to Provider Care Plan Fall/Injury No Yulissa Vigil RN Maximize understanding of chronic condition Care Plan Chronic Condition Self-Management No Yulissa Vigil RN Note: Patient Agrees with goal priority: Yes Patient Self-Management activities for this goal: Health condition self-management activities: Symptom management Task/Interventions: Pt will schedule with [facility] orthopedic documented as of this encounter Results * BI MAMMOGRAM SCREENING WITH TOMOSYNTHESIS WITH CAD (BILATERAL) (04/23/2024 10:16 AM EST) Anatomical Region Laterality Modality Breast Left, Breast Right, Breast Bilateral Bila teral Mammography 04/24/2024 8:23 AM EST Impressions 04/24/2024 8:24 AM EST No mammographic evidence of malignancy in either breast. Annual screening mammography is recommended. BI-RADS 1 NEGATIVE The patient will be notified of the results and recommendations. Narrative 04/24/2024 8:24 AM EST BI MAMMOGRAM SCREENING WITH TOMOSYNTHESIS WITH CAD (BILATERAL) Additional patient information: Screening. COMPARISON: Comparison is made with relevant prior imaging. Breast composition: There are scattered areas of fibroglandular density. FINDINGS: No abnormal masses, suspicious calcifications, or other significant findings are identified mammographically in either breast. Procedure Note Elsy Navarro MD - 04/24/2024 BI MAMMOGRAM SCREENING WITH TOMOSYNTHESIS WITH CAD (BILATERAL) Additional patient information: Screening. COMPARISON: Comparison is made with relevant prior imaging. Breast composition: There are scattered areas of fibroglandular density. FINDINGS: No abnormal masses, suspicious calcifications, or other significantfindings are identified mammographically in either breast. IMPRESSION: No mammographic evidence of malignancy in either breast. Annual screening mammography is recommended. BI-RADS 1 NEGATIVE The patient will be notified of the results and recommendations. Edilma Chase MD IMG MG EXAMS Final Result documented in this encounter Visit Diagnoses Diagnosis Breast screening- Primary Breast screening, unspecified Breast screening Breast screening, unspecified documented in this encounter Additional Health Concerns Active Problems Noted Date Diagnosed Date Chronic Condition Self-Management 02/04/2020 Fall/Injury 02/04/2020 Infection Onset Date Last Indicated Resolved Time CoV-Risk Comment:Per Ambulatory Triage Form 06/04/2024 06/05/202406/16 1:22 AM EST CoV-Risk 07/20/2024 07/20/2024 07/31/2024 1:21 AM EST CDiff-Risk 10/18/2024 10/18/2024 10/25/2024 1:21 AM EDT Assessment Noted Time PHQ-2 Depression Total Score: 1 05/26/20 23 1:08 PM EST documented as of this encounter Care Teams Transitional Kindergarten Teacher Relationship Specialty Start Date End Date Edilma Chase MD [address] [place] [address] [email or web address] PCP - General Family Medicine 04/01/23 Roger Frank MD [address] [place] [address] [email or web address] Historical LMR Provider 03/26/17 Edilma Chase MD [address] [place] [address] [email or web address] Historical LMR Provider 03/26/17 Pelon Arellano MD [address] [place], [place] [address] [place] [phone] [email or web address] Historical LMR Provider 03/26/17 Yulissa Vigil, RN [address] [place] [address] [email or web address] Department Supervisor 12/12/19 12/25/24 Pcp, Not Required [address] [place] [address] 02/09/23 Edilma Chase MD [address] [place] [address], [address] [place] [address] [email or web address] Insurance Assigned Provider 09/10/23 Elizabeth Batista [address] [place] [address] [email or web address] Community Health Worker 11/18/23 01/22/24 documented as of this encounter Additional Source Comments The information contained in this document represents components of the legal health record. It is not the complete legal health record.[facility]
--- OUTSIDE RECORDS SUMMARY | 2025-01-28 14:35 | XMS_ITS | Clinical Summary ---
Author Organization [facility] Address [address] [place] [address] Care Team Providers Care Racquet Maker Name Role Phone Gaye Pate Primary Care Provider [phone] Allergies Active Allergy Reactions Criticality Noted Date Comments Erythromycin Hives High Latex, Natural Rubber Hives 06/21/2017 Nitrofurantoin Monohyd/M-Cryst Anaphylaxis High Morphine Hives 06/21/2017 Sulfa (Sulfonamide Antibiotics) Hives High Medications calcium carbonate-vitam in D3 600-125 mg-unit tablet Take by mouth. Active multivitamin (THERAGRAN) tablet Multiple Vitamin Oral Tablet Refills: 0 Active Active Lactobac no.41/Bifidobac t no.7 (PROBIOTIC-10 ORAL) Probiotic Oral Capsule TAKE 1 CAPSULE DAILY Quantity: 30; Refills: 0 Active Active calcium-vitamin D3-vitamin K 500 mg-1,000 unit-40 mcg tablet,chewable Vitamin D 1000 UNIT Oral Tablet Refills: 0 Active Active albuterol (PROAIR HFA,VENTOLIN HFA) 90 mcg inhaler Inhale 2 puffs by mouth every 4 hours as needed. 6 Active ascorbic acid, vitamin C, (VITAMIN C) 1,000 mg tablet 1 tablet Acti ve atorvastatin (LIPITOR) 20 mg tablet TAKE 1 TABLET BY MOUTH ONCE DAILY 0 Active clonazePAM (KlonoPIN) 1 mg tablet TAKE 1 TABLET BY MOUTH ONCE DAILY AT BEDTIME NEEDED 0 Active cyanocobalamin, vitamin B-12, 1,000 mcg tablet extended release Vitamin B12 TR 1000 MCG TBCR TAKE 1 TABLET DAILY DIRECTED. Refills: 0 Active Active enalapril (VASOTEC) 20 mg tablet Take 1 1/2 tabs daily (30mg) 9 Active estradiol (ESTRACE) 0.01 % (0.1 mg/gram) vaginal cream 1 applicator 1 Active ibuprofen (MOTRIN) 800 mg tablet Take 800 mg by mouth every 8 hours as needed. pain 0 Active levothyroxine (SYNTHROID, LEVOTHROID) 88 mcg tablet TAKE 1 TABLET BY MOUTH IN THE MORNING ON AN EMPTY STOMACH 9 Active oxyCODONE IR (ROXICODONE) 5 mg tablet Take 5 mg by mouth 2 times a day. 0 Active oxyCODONE IR (ROXICODONE) 5 mg tablet Take 5 mg by mouth 2 times daily as needed. 0 Active buPROPion XL (WELLBUTRIN XL) 150 mg tablet Take 150 mg by mouth daily. 0 Active sertraline (ZOLOFT) 100 mg tablet Take 150 mg by mouth daily. 0 Active cyanocobalamin (VITAMIN B12) 1,000 mcg/mL injection INJECT 1ML INTO THE MUSCLE EVERY 30 DAYS 0 Active Active Problems Problem Noted Date Diagnosed Date Sjogren's syndrome without extraglandular involv ement 02/20/2020 White matter disease 11/28/2019 Syncope and collapse 11/28/2019 Falling 11/28/2019 Injury of left foot, sequela 09/22/2016 Backache 11/10/2012 Musculoskeletal limb pain 11/10/2012 Muscle spasm 09/23/2011 Cramp and spasm 11/23/2010 Fasciculations 11/23/2010 Family History Medical History Relation Name Comments Other Father Family history of Coronary heart disease /Family History of alcoholism /Family history of High cholesterol Other Mother Family History of Parkinson's disease /Family History of hypertension /Family History of thyroid disease Relation Name Status Comments Father Mother Social History Tobacco Use Types Packs/Day Years Used Date Smoking Tobacco: Former Cigarettes Q uit: 2019 Smokeless Tobacco: Never Comments:: Alcohol Use Standard Drinks/Week Comments Not Currently 0 (1 standard drink = 0.6 oz pur e alcohol) Comments Unknown Sex and Gender Information Value Date Recorded Sex Assigned at Not on file Legal Sex Female 6:31 AM EDT Gender Identity Not on file Sexual Orientation Not on file Last Filed Vital Signs Vital Sign Reading Time Taken Comments Blood Pressure 135/72 06/11/2020 2:55 PM EST Pulse 58 06/11/2020 2:55 PM EST Temperature 36.8 C (98.2 F) 04/03/2010 10:50 AM EDT Respiratory Rate 17 12/04/2019 12:04 PM EDT Oxygen Saturation 100% 12/04/2019 12:04 PM EDT Inhaled Oxygen Concentration - - Weight 59 kg (130 lb) 11/28/2019 1:52 PM EDT Height 160 cm (5' 3 ) 07/26/2019 1:57 PM EST Body Mass Index 23.03 07/26/2019 1:57 PM EST Plan of Treatment Health Maintenance Due Date Last Done Comments Cologuard 1959 Colon Cancer Screening 1959 Colonoscopy 1959 FOBT / Fit Test 1959 HIV Screening 1959 Sigmoidoscopy 1959 Osteoporosis Screening 10/12/2009 Zoster Vaccines (1 of 2) 10/12/2009 COVID-19 Vaccine (2 - season) 2024 09/13/2020 Alcohol/Substance Use Screening 06/06/2024 Health Care Proxy Review 06/06/2024 Influenza Vaccine (#1) 2025 , 04/13/2021, 02/27/2020, Additional history exists DTaP,Tdap,and Td Vaccines (3 - Td or Tdap) 05/24/2032 05/24/2022, 11/09/2008 RSV Vaccine (60+ years old and patients) (1 - 1-dose 75+ series) 10/12/2034 CT Lung Cancer Screening (12 months, previous LungRADS 1 or 2) Discontinued 02/05/2020, 02/05/2020 Mammogram Discontinued 05/27/2020, 05/07, 05/13/2020, Additional history exists Pneumococcal Vaccine: 50+ Years Completed 08/16/2022, 10/02/2018, 02/23/2011 Hepatitis B Vaccines Aged Out No long er eligible based on patient's age to complete this topic Insurance # 1 [place] [id number] MEDICARE [facility] Care Teams Racquet Maker Relationship Specialty Start Date End Date Gaye Pate [facility] [address] [place] [address], [address] [place] [address] PCP - General Family Medicine 06/12/19
--- OUTSIDE RECORDS SUMMARY | 2025-01-28 14:35 | XMS_ITS | Encounter Summary ---
Author Organization [facility] Address [address] [place] [address] [place] [address] Phone Care Team Providers Care Boathouse Keeper Name Role Phone Roger Frank MD Unavailable Edilma Chase MD Unavailable [phone] Pelon Arellano MD Unavailable [phone] Gaye Pate DAIRY NUTRITION SPECIALIST Primary Care Provider Luh Ayala MD Unavailable [phone] Yulissa Vigil RN Unavailable [phone] Elizabeth Batista Unavailable [phone] Elizabeth Batista Unavailable [phone] Elizabeth Batista Unavailable [phone] Elizabeth Batista Unavailable [phone] Chan Jacobo MD Unavailable Edilma Chase MD Primary Care Provider [phone] Pcp, Not Required Unavailable Unavailable Edilma Chase MD Unavailable [phone] Edilma Chase MD Unavailable [phone] Edilma Chase MD Primary Care Provider [phone] Edilma Chase MD Primary Care Provider [phone] Edilma Chase MD Unavailable Elizabeth Batista Unavailable [phone] Reason for Referral * MRI/CAT Scan - Closed Specialty Diagnoses / Procedures Referred By Varsha mckinney Referred To Contact Radiology Diagnoses Deviated nasal septum Hypertrophy of nasal turbinates Polyp of nasal cavity Procedures CT Face Lacy Henley MD Phone: tel: fax: [email or web address] Referral ID Status Reason Start Date Expiration Date Visits Re quested Visits Authorized [id number] Closed 10/06/2021 10/06/2022 1 1 Encounter Details Date Type Department Care Team (Late st Contact Info) Description 10/06/2021 Transcribe Orders Virtual Department [address] [place] [address] Lacy Henley MD [address] [place] [phone] [email or web address] Deviated nasal septum (Primary Dx); Hypertrophy of nasal turbinates; Polyp of nasal cavity Social History Tobacco Use Types Packs/Day Years [...] high school, GED, job training, learning the Belarusian language, technical skills, or developing parenting skills)? [...] Description 02/12/2025 4:30 PM EDT Office Visit [facility] [address] [place] [address] Edilma Chase MD [address] [facility], [address] [place] [address] [email or web address] documented as of this encounter Goals Goal Patient Goal Type Associated Problems Recent Progress Patient-Stated? Author Adhere to treatment plan Care Plan Chronic Condition Self-Management No Yulissa Vigil RN Understand symptoms and warning signs to report to Provider Care Plan Fall/Injury No Yulissa Vigil RN documented as of this encounter Results * CT FACE (SINUS) WITHOUT CONTRAST (11/04/2021 4:57 PM EDT) Anatomical Region Laterality Modality Face Computed Tomogra phy 11/05/2021 7:52 AM EDT Impressions 11/05/2021 8:37 AM EDT 1.Minimal inflammatory changes of the paranasal sinuses. 2.Minimal leftward nasal septal deviation. Narrative 11/05/2021 8:[address] FACE (SINUS) WITHOUT CONTRAST TECHNIQUE: Multidetector-row CT of the sinuses was performed without intravenous contrast using tailored dose modulation techniques. Images were reconstructed in the axial, coronal, and sagittal planes. COMPARISON: None FINDINGS: Frontal sinuses and frontoethmoidal junctions: Minimal mucosal thickening. Anterior and posterior ethmoid air cells: Opacification of one of the right anterior ethmoid air cells. Otherwise, mild mucosal thickening Maxillary sinuses and infundibula: Trace mucosal thickening Sphenoid sinuses and sphenoethmoidal recesses: Clear Nasal cavity: Minimal leftward nasal septal deviation. Imaged maxillary teeth: Patient is edentulous. Mastoid air cells and middle ear cavities: Clear. Temporomandibular joints: No significant degenerative remodeling. Brain: Images of the brain parenchyma are not of diagnostic quality for the soft tissues. No focal abnormality is visible with this technique. Orbits and globes: Normal. No abnormality. Procedure Note Delmar Hoyt MD - 11/05/2021 CT FACE (SINUS) WITHOUT CONTRAST TECHNIQUE: Multidetector-row CT of the sinuses was performed withoutintravenous contrast using tailored dose modulation techniques. Imageswere reconstructed in the axial, coronal, and sagittal planes. COMPARISON: None FINDINGS: Frontal sinuses and frontoethmoidal junctions: Minimal mucosalthickening. Anterior and posterior ethmoid air cells: Opacification of one of theright anterior ethmoid air cells. Otherwise, mild mucosal thickening Maxillary sinuses and infundibula: Trace mucosal thickening Sphenoid sinuses and sphenoethmoidal recesses: Clear Nasal cavity: Minimal leftward nasal septal deviation. Imaged maxillary teeth: Patient is edentulous. Mastoid air cells and middle ear cavities: Clear. Temporomandibular joints: No significant degenerative remodeling. Brain: Images of the brain parenchyma are not of diagnostic quality forthe soft tissues. No focal abnormality is visible with this technique. Orbits and globes: Normal. No abnormality. IMPRESSION: 1.Minimal inflammatory changes of the paranasal sinuses. 2.Minimal leftward nasal septal deviation. Lacy Henley MD [facility] CT HEAD/NECK Fin al Result documented in this encounter Visit Diagnoses Diagnosis Deviated nasal septum- Primary Hypertrophy of nasal turbinates Polyp of nasal cavity Deviated nasal septum Hypertrophy of nasal turbinates Polyp of nasal cavity documented in this encounter Additional Health Concerns [...] documented as of this encounter Care Teams Boathouse Keeper Relationship Specialty Start Date End Date Gaye Pate, DAIRY NUTRITION SPECIALIST [address] [facility], [address] [place] [address] [email or web address] PCP - General 06/21/17 01/27/23 Edilma Chase MD [address] [place] [address] [email or web address] PCP - General Family Medicine 01/28/23 01/31/23 Edilma Chase MD [address] [place] [address] [email or web address] PCP - General Family Medicine 02/09/23 03/28/23 Edilma Chase MD [address] [place] [address] [email or web address] PCP - General Family Medicine 04/01/23 Roger Frank MD [address] [address] [email or web address] Historical LMR Provider 03/26/17 Edilma Chase MD [address] [place] [address] [address] [place] [address] [email or web address] Historical LMR Provider 03/26/17 Pelon Arellano MD [address] [place] [address] [address] [place] [phone] [email or web address] Historical LMR Provider 03/26/17 Luh Ayala MD [address] [place] [address] 7 [place] [address] [email or web address] Insurance Assigned Provider 09/03/1709/11/22 Yulissa Vigil RN [address] [place] [address] [email or web address] [facility] Skiver Machine Operator 12/12/19 12/25/24 Elizabeth Batista [address] [place] [phone] [facility] Community Health Worker 07/09/21 11/04/21 Elizabeth Batista [address] [place] [phone] [facility] Community Health Worker 10/29/21 01/31/22 Elizabeth Batista [address] [place] [phone] 03/01/22 03/03/22 Elizabeth Batista [address] [place] [phone] [facility] Community Health Worker 04/26/22 06/02/22 Chan Jacobo MD [address] [place] [address] [address] [place] [address] [email or web address] Insurance Assigned Provider 09/11/22 Pcp, Not Required [address] [place] [address] 02/09/23 Edilma Chase MD [address] [place] [address] 7 [place] [address] [email or web address] Family Medicine 02/09/23 03/28/23 Edilma Chase MD [address] [place] [address] [address] [place] [address] [email or web address] Family Medicine 02/09/23 03/28/23 Edilma Chase MD [address] [place], [place] [address]JAKE guzman [address] [email or web address] Insurance Assigned Provider 09/10/23 Elizabeth Batista [address] [place] [address] [email or web address] [facility] Community Health Worker 11/18/23 01/22/24 documented as of this encounter Additional Source Comments The information contained in this document represents components of the legal health record. It is not the complete legal health record.[facility]
--- OUTSIDE RECORDS SUMMARY | 2025-01-28 14:35 | XMS_ITS | Encounter Summary ---
Author Organization [facility] Address [address] [place] [address] [address] [place] [address] Phone Care Team Providers Care Registered Representative Name Role Phone Roger Frank MD Unavailable Edilma Chase MD Unavailable EileenPelon duffy MD Unavailable Yulissa Vigil RN Unavailable [phone] Pcp, Not Required Unavailable Unavailable Edilma Chase MD Primary Care Provider [phone] Edilma Chase MD Unavailable Encounter Details Date Type Department Care Team (Late st Contact Info) Description 09/21/2024 Transcribe Orders [facility] Specimen Processing [address] [place], [place] [phone] Edilma Chase MD [address] [place] [address], [address] [place], [place] [phone] [email or web address] Social History Tobacco Use Types Packs/Day Years [...] high school, GED, job training, learning the Wallisian language, technical skills, or developing parenting skills)? [...] as food, clothing, or medical care? No 06/05/2024 In the past 12 months have y ou been in a relationship with a person who hurts, threatens, or tries to control you? No 06/05/2024 Are you denied basic needs s uch as food, clothing, or medical care? No 06/05/2024 In the past 12 months have y ou been in a relationship with a person who hurts, threatens, or tries to control you? No 06/05/2024 Comments No Sex and Gender Information Value [...] Description 02/12/2025 4:30 PM EDT Office Visit [facility] Medicine [address] [place] [address] Edilma Chase MD [address] [phone] [email or web address] documented as of this encounter Goals Goal Patient Goal Type Associated Problems Recent Progress Patient-Stated? Author Adhere to treatment plan Care Plan Chronic Condition Self-Management No Yulissa Vigil RN Understand symptoms and warning signs to report to Provider Care Plan Fall/Injury Yulissa Baldwin RN Maximize understanding of chronic condition Care Plan Chronic Condition Self-Management No Yulissa Vigil RN Note: Patient Agrees with goal priority: Yes Patient Self-Management activities for this goal: Health condition self-management activities: Symptom management Task/Interventions: Pt will schedule with [facility]opedic documented as of this encounter Visit Diagnoses Not on filedocumented in this encounter Additional Health Concerns Active Problems Noted Date Diagnosed Date Chronic Condition Self-Management 02/04/2020 Fall/Injury 02/04/2020 Infection Onset Date Last Indicated Resolved Time CDiff-Risk 10/18/2024 10/18/2024 10/25/2024 1:21 AM EDT Assessment Noted Time PHQ-2 Depression Total Score: 0 05/05/20 24 10:47 AM EST documented as of this encounter Care Teams Registered Representative Relationship Specialty Start Date End Date Edilma Chase MD 234 [facility] 7 [place] [address] [email or web address] PCP - General Family Medicine 04/01/23 Roger Frank MD 22 [facility], [address] [place] [address] [email or web address] Historical LMR Provider 03/26/17 Edilma Chase MD [address] [place] [address] 7 [place] [address] [email or web address] Historical LMR Provider 03/26/17 Pelon Arellano MD 234 [facility]7 [place] [phone] [email or web address] Historical LMR Provider 03/26/17 Yulissa Vigil, RN 10 [place], [place] [phone] [email or web address] iC[employer] Possum Trapper 12/12/19 12/25/24 Pcp, Not Required 55 [place] [address] 02/09/23 Edilma Chase MD [address] [place] [address] 7 [place] [address] [email or web address] Insurance Assigned Provider 09/10/23 documented as of this encounter Additional Source Comments The information contained in this document represents components of the legal health record. It is not the complete legal health record.[facility]
--- OUTSIDE RECORDS SUMMARY | 2025-01-28 14:35 | XMS_ITS | Encounter Summary ---
Author Organization [facility] Address [address] [place] [address] Phone Care Team Providers Care Administrative Law Judge Name Role Phone Larry Payne MD Unavailable [phone] Roger Frank MD Unavailable Felipe Brooks MD Unavailable [phone] Tr West MD Unavailable [phone] Mannie Pino PA-C Unavailable [phone] Yulissa Purvis DO Unavailable [phone] Unavailable [email or web address] Eloina Ash MD Unavailable Edilma Chase MD Unavailable [phone] Maribell Mendoza MD Unavailable [phone] Pelon Arellano MD Unavailable Gaye Pate [facility] Primary Care Provider [phone] Luh Ayala MD Unavailable [phone] Yulissa Vigil RN Unavailable [phone] Elizabeth Batista Unavailable [phone] Elizabeth Batista Unavailable [phone] Lester, Elizabeth Unavailable [phone] Elizabeth Batista Unavailable [phone] Elizabeth Btaista Unavailable [phone] Elizabeth Batista Unavailable [phone] Elizabeth Batista Unavailable [phone] Chan Jacobo MD Unavailable Edilma Chase MD Primary Care Provider Pcp, Not Required Unavailable Unavailable Edilma Chase MD Unavailable [phone] Edilma Chase MD Unavailable [phone] Edilma Chase MD Primary Care Provider [phone] Edilma Chase MD Primary Care Provider [phone] Edilma Chase MD Unavailable [phone] Elizabeth Batista Unavailable [phone] Encounter Details Date Type Department Care Team (Late st Contact Info) Description 04/19/2019 Ancillary Orders [facility], X-Ray - [address] [place] [address] Devante Fatima, BUSINESS SYSTEM MANAGER 6 [place], [place] [phone] [email or web address] Sacroiliitis Social History Tobacco Use Types Packs/Day Years [...] PM EST documented as of this encounter Plan of Treatment Upcoming Encounters Date Type Department Care Team (Late st Contact Info) Description 02/12/2025 4:30 PM EDT Office Visit [facility] Medicine 234 [place], [place] [phone] Edilma Chase MD [address] [place] [address], [address] [place] [address] [email or web address] documented as of this encounter Results * XR SACROILIAC JOINTS 3 OR MORE VIEWS (04/19/2019 4:48 PM EST) Anatomical Region Laterality Modality Pelvis Radiographic Kaylynn ging 04/19/2019 4:54 PM EST Impressions 04/19/2019 5:25 PM EST No significant degenerative or inflammatory changes at the SI joints apparent. POS - [id number] Edited by: Georgette Shipman on 04/19/2019 5:02 PM Narrative 04/19/2019 5:25 PM EST SI joints 4 views. No prior. No sclerosis or erosions at the SI joints. Joint spaces appear maintained. No bony lesions identified. Few phleboliths noted regionally. What may be a small area of impingement change is seen at the left femoral head-neck junction. No aggressive lesion suggested there and without a prominent cam or pincer configuration apparent on obtained views. Procedure Note Srikanth Ma MD - 04/19/2019 SI joints 4 views. No prior. No sclerosis or erosions at the SI joints.Joint spaces appear maintained. No bony lesions identified. Fewphleboliths noted regionally. What may be a small area of impingementchange is seen at the left femoral head-neck junction. No aggressivelesion suggested there and without a prominent cam or pincer configurationapparent on obtained views. IMPRESSION: No significant degenerative or inflammatory changes at the SI jointsapparent. POS - [id number] Edited by: Georgette Shipman on 04/19/2019 5:02 PM Devante Fatima BUSINESS SYSTEM MANAGER IMG XR PELVIS Final Res ult documented in this encounter Visit Diagnoses Diagnosis Sacroiliitis Sacroiliitis, not elsewhere classified Sacroiliitis Sacroiliitis, not elsewhere classified documented in this encounter Additional Health Concerns Infection [...] documented as of this encounter Care Teams Administrative Law Judge Relationship Specialty Start Date End Date Gaye Pate CNP 15 [facility], 2nd [place] [address] [email or web address] PCP - General 06/21/17 01/27/23 Edilma Chase MD [address] [place] [address] [email or web address] PCP - General Family Medicine 01/28/23 01/31/23 Edilma Chase MD [address] [place] [address] [email or web address] PCP - General Family Medicine 02/09/23 03/28/23 Edilma Chase MD [address] [place] [address] [email or web address] PCP - General Family Medicine 04/01/23 Larry Payne MD 50 [facility] 1st Floor -[address] [place] [address] Historical LMR Provider 03/26/17 2 Roger Frank MD [address] [place] [address], [facility] 301 [place] [address] [email or web address] Historical LMR Provider 03/26/17 Felipe Brooks MD 115 [place] [address] Historical LMR Provider 03/26/17 Tr West MD [address] [place] [address] [email or web address] Historical LMR Provider 03/26/17 06/13/21 Mannie Pino PA-C [address] [place] [address] [facility], [place] [address] Historical LMR Provider 03/26/17 06/13/21 Yulissa Purvis DO [address] [place] [address] Historical LMR Provider 03/26/17 2 Jessi Rivero, [place] Historical LMR Provider 03/26/17 06/13/21 Eloina Ash MD [address] [place] [address] [facility], [place] [address] Historical LMR Provider 03/26/17 Edilma Chase MD 234 [facility] 7 [place] [address] [email or web address] Historical LMR Provider 03/26/17 Maribell Mendoza MD [address] [place] [address] Orthopedics [facility] Medicine, [place] [address] [email or web address] Historical LMR Provider 03/26/17 06/13/21 Pelon Arellano MD [address] [place], [place] [address] [place] [address] [email or web address] Historical LMR Provider 03/26/17 Luh Ayala MD [address] [place] [address] 7 [place] [address] [email or web address] Insurance Assigned Provider 09/03/17 09/11/22 Yulissa Vigil, RN [address] [place] [address] [email or web address] [facility] Alumni Relations Manager 12/12/19 12/25/24 Elizabeth Batista [address] [place] [phone] [facility] Community Health Worker 02/28/20 04/16/20 Elizabeth Batista [address] [place] [address] [facility] Community Health Worker 07/17/20 02/23/21 Elizabeth Batista [address] [place] [address] [facility] Community Health Worker 07/09/21 07/23/21 Elizabeth Batista [address] [place] [phone] [email or web address] Community Health Worker 07/09/21 11/04/21 Elizabeth Batista [address] [place] [phone] [email or web address] Community Health Worker 10/29/21 01/31/22 Elizabeth Batista [address] [place] [phone] 03/01/22 03/03/22 Eliazbeth Batista [address] [place] [phone] [email or web address] Community Health Worker 04/26/22 06/02/22 Chan aJcobo MD [address] [place] [address] [email or web address] Insurance Assigned Provider 09/11/22 09/10/23 Pcp, Not Required [address] [place] [address] 02/09/23 Edilma Chase MD [address] [place] [address] [email or web address] Family Medicine 02/09/23 03/28/23 Edilma Chase MD [address] [place] [address] [email or web address] Family Medicine 02/09/23 03/28/23 Edilma Chase MD [address] [place] [address] [email or web address] Insurance Assigned Provider 09/10/23 Elizabeth Batista [address] [place] [phone] [email or web address] [employer] Community Health Worker 11/18/23 01/22/24 documented as of this encounter Additional Source Comments The information contained in this document represents components of the legal health record. It is not the complete legal health record.[facility]
--- OUTSIDE RECORDS SUMMARY | 2025-01-28 14:35 | XMS_ITS | Encounter Summary ---
Author Organization [facility] Address [address] [place] [address] Phone Care Team Providers Care Secondary History Teacher Name Role Phone Larry Payne MD Unavailable Roger Frank MD Unavailable [phone] Felipe Brooks MD Unavailable [phone] Tr West MD Unavailable [phone] Mannie Pino PA-C Unavailable [phone] Yulissa Purvis DO Unavailable [phone] Unavailable [email or web address] Eloina Ash MD Unavailable Edilma Chase MD Unavailable [phone] Maribell Mendoza MD Unavailable [phone] Pelon Arellano MD Unavailable Gaye Pate [facility] Primary Care Provider [phone] Luh Ayala MD Unavailable [phone] Yulissa Vigil RN Unavailable [phone] Elizabeth Batista Unavailable [phone] Elizabeth Batista Unavailable [phone] Elizabeth Batista Unavailable [phone] Lester Elizabeth Unavailable [phone] Lester Elizabeth Unavailable [phone] Elizabeth Batista Unavailable [phone] Chan Jacobo MD Unavailable Edilma Chase MD Primary Care Provider Pcp, Not Required Unavailable Unavailable Edilma Chase MD Unavailable [phone] Edilma Chase MD Unavailable [phone] Edilma Chase MD Primary Care Provider [phone] Edilma Chase MD Primary Care Provider [phone] Edilma Chase MD Unavailable Elizabeth Batista Unavailable [phone] Encounter Details Date Type Department Care Team (Late st Contact Info) Description 05/14/2020 Ancillary Orders [facility] 234 [place] [address] Gaye Pate, COMMUNICATIONS STATION MANAGER 15 [facility], 2nd [place] [address] [email or web address] Abnormal mammogram Social History Tobacco Use Types Packs/Day Years [...] Description 02/12/2025 4:30 PM EDT Office Visit [facility] 234 [place] [address] Edilma Chase MD [address] [place] [address], [address] [place] [address] [email or web address] documented as of this encounter Goals Goal Patient Goal Type Associated Problems Recent Progress Patient-Stated? Author Adhere to treatment plan Care Plan Chronic Condition Self-Management No Yulissa Vigil RN Understand symptoms and warning signs to report to Provider Care Plan Fall/Injury No Yulissa Vigil RN documented as of this encounter Results * BI MAMMOGRAM DIAGNOSTIC WITH TOMOSYNTHESIS WITH CAD (LEFT) (05/27/2020 1:11 PM EST) Anatomical Region Laterality Modality Breast Left Left Mammography 05/27/2020 1:13 PM EST Impressions 05/27/2020 1:27 PM EST Focal density demonstrated in the lateral tissues on 05/13/2020 appears to represent superimposition artifact. In the absence of clinically significant findings routine annual screening mammography would be recommended. The results of this examination were relayed to the patient by the technologist. BI-RADS CATEGORY: 2 - Benign finding. DENSITY: There are scattered fibroglandular densities. Narrative 05/27/2020 1:27 PM EST Comparison is made with prior studies of 11/28/2014 and 05/13/2020. Spot compression cc view and tomographic craniocaudal and MLO views were obtained. The focal density in the lateral tissues demonstrated previously dissipates on spot compression images, attaining a configuration similar to that demonstrated in 2015, consistent with superimposition of stromal markings. No discrete mass or architectural distortion apparent. Procedure Note Taz Noel MD - 05/27/2020 Comparison is made with prior studies of 11/28/2014 and 05/13/2020. Spotcompression cc view and tomographic craniocaudal and MLO views wereobtained. The focal density in the lateral tissues demonstrated previouslydissipates on spot compression images, attaining a configuration similarto that demonstrated in 2015, consistent with superimposition of stromalmarkings. No discrete mass or architectural distortion apparent. IMPRESSION: Focal density demonstrated in the lateral tissues on 05/13/2020 appears torepresent superimposition artifact. In the absence of clinicallysignificant findings routine annual screening mammography would berecommended. The results of this examination were relayed to the patient by thetechnologist. BI-RADS CATEGORY: 2 - Benign finding. DENSITY: There are scattered fibroglandular densities. Gaye Pate CNP IMG MG EXAMS Final Resu lt documented in this encounter Visit Diagnoses Diagnosis Abnormal mammogram Abnormal mammogram, unspecified Abnormal mammogram Abnormal mammogram, unspecified documented in this encounter Additional Health [...] documented as of this encounter Care Teams Secondary History Teacher Relationship Specialty Start Date End Date Gaye Pate CNP [address] [place] [address], 2nd [place] [address] [email or web address] PCP - General 06/21/17 01/27/23 dEilma Chase MD [address] [place] [address], [address] [place] [address] [email or web address] PCP - General Family Medicine 01/28/23 01/31/23 Edilma Chase MD [address] [place] [address] [address] [place] [address] [email or web address] PCP - General Family Medicine 02/09/23 03/28/23 Edilma Chase MD [address] [place] [address] [address] [place] [address] [email or web address] PCP - General Family Medicine 04/01/23 Larry Payne MD [address] [place] [address] 1st Floor [facility] [place] [address] Historical LMR Provider 03/26/17 2 Roger Frank MD [address] [place] [address] 301 [place] [address] [email or web address] Historical LMR Provider 03/26/17 Felipe Brooks MD 115 [place] [address] Historical LMR Provider 03/26/17 Tr West MD [address] [place] [address] [email or web address] Historical LMR Provider 03/26/17 06/13/21 Mannie Pino PA-C [address] [place] [address] Orthopedics & Sports Medicine, [place] [address] Historical LMR Provider 03/26/17 06/13/21 Yulissa Purvis DO 30 [place] [address] Historical LMR Provider 03/26/17 2 Jessi Rivero, RDCS Historical LMR Provider 03/26/17 06/13/21 Eloina Ash MD [address] [place] [address] Orthopedics & Sports Medicine, [place] [address] [email or web address] Historical LMR Provider 03/26/17 Edilma Chase MD [address] [place] [address] [address] [place] [address] [email or web address] Historical LMR Provider 03/26/17 Maribell Mendoza MD [address] [place] [address] Orthopedics Sports [facility], [place] [address] [email or web address] Historical LMR Provider 03/26/17 06/13/21 Pelon Arellano MD [address] [place], [place] [address] [place] [phone] [email or web address] Historical LMR Provider 03/26/17 Luh Ayala MD [address] [place] [address] [address] [employer], [place] [phone] [email or web address] Insurance Assigned Provider 09/03/17 09/11/22 Yulissa Vigil, MAX [address] [place], [place] [phone] [email or web address] [employer] 12/12/19 12/25/24 Elizabeth Baitsta [address] [place] [address], [place] [address] [email or web address] Community Health Worker 07/17/20 02/23/21 Elizabeth Batista [address] [place] [phone] [email or web address] Community Health Worker 07/09/21 07/23/21 Elizabeth Batista [address] [place] [address], [place] [address] [email or web address] Community Health Worker 07/09/21 11/04/21 Elizabeth Batista [address] [place] [address], [place] [address] [email or web address] Community Health Worker 10/29/21 01/31/22 Elizabeth Batista [address] [place] [phone] [email or web address] 03/01/22 03/03/22 Elizabeth Batista [address] [place] [phone] [email or web address] Community [email or web address] Worker 04/26/22 06/02/22 Chan Jacobo MD [address] [place] [address] [address] [place] [address] [email or web address] Insurance Assigned Provider 09/11/22 09/10/23 Pcp, Not Required [address] [place] [address] 02/09/23 Edilma Chase MD [address] [place] [address] [address] [employer] [place] [phone] [email or web address] Family Medicine 02/09/23 03/28/23 Edilma Chase MD [address] [place] [address] [address] [employer], [place] [phone] [email or web address] Family Medicine 02/09/23 03/28/23 Edilma Chase MD [address] [place] [address] [address] [place] [address] [email or web address] Insurance Assigned Provider 09/10/23 Elizabeth Batista 10 [place] [address] [email or web address] Community Health Worker 11/18/23 01/22/24 documented as of this encounter Additional Source Comments The information contained in this document represents components of the legal health record. It is not the complete legal health record.[facility]
--- OUTSIDE RECORDS SUMMARY | 2025-01-28 14:35 | XMS_ITS | Encounter Summary ---
Author Organization [facility] Address [address] [place] [address] [place] [address] Phone Care Team Providers Care Biostatistics Teacher Name Role Phone Roger Frank MD Unavailable Edilma Chase MD Unavailable [phone] Pelon Arellano MD Unavailable [phone] Gaye Pate CNP Primary Care Provider [phone] Luh Ayala MD Unavailable [phone] Yulissa Vigil RN Unavailable [phone] Chan Jacobo MD Unavailable Edilma Chase MD Primary Care Provider Pcp, Not Required Unavailable Unavailable Edilma Chase MD Unavailable Edilma Chase MD Unavailable Edilma Chase MD Primary Care Provider Edilma Chase MD Primary Care Provider [phone] Edilma Chase MD Unavailable [phone] Elizabeth Batista Unavailable [phone] Encounter Details Date Type Department Care Team (Late st Contact Info) Description 07/13/2022 Procedure Pass [facility] Endoscopy Admitting Dept Virtual Department [address] [place] [address] Social History Tobacco Use Types Packs/Day Years [...] high school, GED, job training, learning the Haitian language, technical skills, or developing parenting skills)? [...] 02/12/2025 4:30 PM EDT Office Visit [facility] [place] [address] [place] [address] Edilma Chase MD 234 [facility], [address] [place] [address] [email or web address] documented as of this encounter Goals Goal Patient Goal Type Associated Problems Recent Progress Patient-Stated? Author Adhere to treatment plan Care Plan Chronic Condition Self-Management Yulissa Baldwin RN Understand symptoms and warning signs to report to Provider Care Plan Fall/Injury Yulissa Baldwin RN documented as of this encounter Visit [...] documented as of this encounter Care Teams Biostatistics Teacher Relationship Specialty Start Date End Date Gaye Pate CNP [address] [place] [address], [address] [place] [address] [email or web address] PCP - General 06/21/17 01/27/23 Edilma Chase MD [address] [place] [address] [email or web address] PCP - General Family Medicine 01/28/23 01/31/23 Edilma Chase MD [address] [place] [address] 7 [place] [address] [email or web address] PCP - General Family Medicine 02/09/23 03/28/23 Edilma Chase MD [address] [place] [address] [email or web address] PCP - General Family Medicine 04/01/23 Roger Frank MD [address] [place] [address], [address] [place] [address] [email or web address] Historical LMR Provider 03/26/17 Edilma Chase MD [address] [place] [address] 7 [place] [address] [email or web address] Historical LMR Provider 03/26/17 Pelon Arellano MD [address] [place], [place] [address] [place] [id number] [email or web address] Historical LMR Provider 03/26/17 Luh Ayala MD [address] [place] [address] 7 [place] [address] [email or web address] Insurance Assigned Provider 09/03/1709/11/22 Yulissa Vigil, RN [address] [place] [address] [email or web address] iCMP Director Of Construction 12/12/19 12/25/24 Chan Jacobo MD [address] [place] [address] 7 [place] [address] [email or web address] Insurance Assigned Provider 09/11/22 Pcp, Not Required [address] [place] [address] 02/09/23 Edilma Chase MD [address] [place] [address] 7 [place] [address] [email or web address] Family Medicine 02/09/23 03/28/23 Edilma Chase MD [address] [place] [address] 7 [place] [address] [email or web address] Family Medicine 02/09/23 03/28/23 Edilma Chase MD 234 [facility] 7 [place] [address] [email or web address] Insurance Assigned Provider 09/10/23 Elizabeth Batista [address] [place] [address] [email or web address] Work[facility] 11/18/23 01/22/24 documented as of this encounter Additional Source Comments The information contained in this document represents components of the legal health record. It is not the complete legal health record.[facility]
--- OUTSIDE RECORDS SUMMARY | 2025-01-28 14:35 | XMS_ITS | Encounter Summary ---
Author Organization [facility] Address [address] [place] [address] [address] [place] [address] Phone Care Team Providers Care Clinic Receptionist Name Role Phone Roger Frank MD Unavailable Edilma Chase MD Unavailable Pelon Arellano MD Unavailable Yulissa Vigil RN Unavailable Chan Jacobo MD Unavailable Pcp, Not Required Unavailable Unavailable Edilma Chase MD Primary Care Provider Edilma Chase MD Unavailable Elizabeth Batista Unavailable [phone] Encounter Details Date Type Department Care Team (Late st Contact Info) Description 06/03/2023 Telephone [facility] [address] [place], [place] [phone] Edilma Chase MD 234 [facility], [address] [place], [place] [phone] Social History Tobacco Use Types Packs/Day Years [...] high school, GED, job training, learning the Palauan language, technical skills, or developing parenting skills)? [...] Description 02/12/2025 4:30 PM EDT Office Visit [facility] [address] [place] [address] Edilma Chase MD [address] [address] [email or web address] documented as of this encounter Goals [...] Symptom management Task/Interventions: Pt will schedule with [facility] documented as of this encounter Visit [...] documented as of this encounter Care Teams Clinic Receptionist Relationship Specialty Start Date End Date Edilma Chase MD 234 [facility] 7 [place] [address] [email or web address] PCP - General Family Medicine 04/01/23 Roger Frank MD [address] [place] [address], [address] [place] [address] Historical LMR Provider 03/26/17 Edilma Chase MD [address] [place] [address] 7 [place] [address] [email or web address] Historical LMR Provider 03/26/17 Pelon Arellano MD [address] [place], [place] [address] [place] [address] [email or web address] Historical LMR Provider 03/26/17 Yulissa Vigil, MAX [address] [place] [address] [email or web address] iCMP Him Tech 12/12/19 12/25/24 Chan Jacobo MD [address] [place] [address] 7 [place] [address] Insurance Assigned Provider 09/11/22 Pcp, Not Required [address] [place] [address] 02/09/23 Edilma Chase MD [address] [place] [address] 7 [place] [address] [email or web address] Insurance Assigned Provider 09/10/23 Elizabeth Batista [address] [place] [address] [facility] Community Health Worker 11/18/23 01/22/24 documented as of this encounter Additional Source Comments The information contained in this document represents components of the legal health record. It is not the complete legal health record.[facility]
--- OUTSIDE RECORDS SUMMARY | 2025-01-28 14:35 | XMS_ITS | Encounter Summary ---
Author Organization [facility] Address [address] [place] [address] Phone Care Team Providers Care Gym Teacher Name Role Phone Larry Payne MD Unavailable Roger Frank MD Unavailable Felipe Brooks MD Unavailable [phone] Tr West MD Unavailable [phone] Mannie Pino PA-C Unavailable [phone] Yulissa Purvis DO Unavailable [phone] Unavailable [email or web address] Eloina Ash MD Unavailable Edilma Chase MD Unavailable [phone] Maribell Mendoza MD Unavailable [phone] Pelon Arellano MD Unavailable Gaye Pate [facility] Primary Care Provider [phone] Luh Ayala MD Unavailable [phone] Yulissa Vigil RN Unavailable [phone] Elizabeth Batista Unavailable [phone] Elizabeth Btaista Unavailable [phone] Elizabeth Batista Unavailable [phone] Elizabeth Batista Unavailable [phone] Elizabeth Batista Unavailable [phone] Chan Jacobo MD Unavailable Edilma Chase MD Primary Care Provider [phone] Pcp, Not Required Unavailable Unavailable Edilma Chase MD Unavailable [phone] Edilma Chase MD Unavailable [phone] dEilma Chase MD Primary Care Provider [phone] Edilma Chase MD Primary Care Provider [phone] Edilma Chase MD Unavailable [phone] Elizabeth Batista Unavailable + [phone] Encounter Details Date Type Department Care Team (Late st Contact Info) Description 06/09/2021 Procedure Pass MRI, [facility] - [address], [address] [place] [address] Social History Tobacco Use Types Packs/Day Years [...] Description 02/12/2025 4:30 PM EDT Office Visit [facility] [address] [place] [address] Edilma Chase MD 234 [facility], [address] [place] [address] [email or web address] documented as of this encounter Goals [...] documented as of this encounter Care Teams Gym Teacher Relationship Specialty Start Date End Date Gaye PateCLAU [address] [facility], 2nd [place] [address] [email or web address] PCP - General 06/21/17 01/27/23 Edilma Chase MD [address] [place] [address] 7 [place] [address] [email or web address] PCP - General Family Medicine 01/28/23 01/31/23 Edilma Chase MD [address] [place] [address] [email or web address] PCP - General Family Medicine 02/09/23 03/28/23 Edilma Chase MD [address] [place] [address] 7 [place] [address] [email or web address] PCP - General Family Medicine 04/01/23 Larry Payne MD [address] [place] [address] 1st [address] [place] [address] Historical LMR Provider 03/26/17 2 Roger Frank MD 22 [facility], [address] [place] [address] [email or web address] Historical LMR Provider 03/26/17 Felipe Brooks MD [address] [place] [address] Historical LMR Provider 03/26/17 Tr West MD [address] [place] [address] [email or web address] Historical LMR Provider 03/26/17 06/13/21 Mannie Pino PA-C [address] [place] [address] [facility] [place] [address] Historical LMR Provider 03/26/17 06/13/21 Yulissa Purvis DO [address] [place] [address] Historical LMR Provider 03/26/17 2 Jessi Rivero, RDCS Historical LMR Provider 03/26/17 06/13/21 Eloina Ash MD [address] [place] [address] [facility] [place] [address] Historical LMR Provider 03/26/17 Edilma Chase MD [address] [place] [address], [address] [place] [address] Historical LMR Provider 03/26/17 Maribell Mendoza MD [address] [place] [address] [facility] [place] [place] [address] Historical LMR Provider 03/26/17 06/13/21 Pelon Arellano MD [address] [place] [address] [address] [place] [address] [email or web address] Historical LMR Provider 03/26/17 Luh Ayala MD 234 [facility] 7 [place] [address] [email or web address] Insurance Assigned Provider 09/03/17 09/11/22 Yulissa Vigil RN [address] [place] [address] [email or web address] [facility] Cigarette Vendor 12/12/19 12/25/24 Elizabeth Batista [address] [place] [address] [email or web address] [facility] Community Health Worker 07/09/21 07/23/[address] [address] [email or web address] [facility] Community Health Worker 07/09/21 11/04/[address] [place] [address] [email or web address] Community Health Worker 10/29/21 01/31/[address] [address] 03/01/22 03/03/[address] [address] [email or web address] [facility] Community Health Worker 04/26/22 06/02/22 Chan Jacobo MD [address] [place] [address] 7 [place] [address] [email or web address] Insurance Assigned Provider 09/11/22 09/10/23 Pcp, Not Required [address] [place] [address] 02/09/23 Edilma Chase MD [address] [place] [address] 7 [place] [address] [email or web address] Family Medicine 02/09/23 03/28/23 Edilma Chase MD [address] [place] [address] 7 [place] [address] [email or web address] Family Medicine 02/09/23 03/28/23 Edilma Chase MD [address] [place] [address] [email or web address] Insurance Assigned Provider 09/10/23 Elizabeth Batista 10 [place] [address] [email or web address] Community Health Worker 11/18/23 01/22/24 documented as of this encounter Additional Source Comments The information contained in this document represents components of the legal health record. It is not the complete legal health record.[facility]
--- OUTSIDE RECORDS SUMMARY | 2025-01-28 14:35 | XMS_ITS | Encounter Summary ---
Author Organization [facility] Address [address] [place] [address] [place] [address] Phone Care Team Providers Care Media Relations Coordinator Name Role Phone Roger Frank MD Unavailable [phone] Edilma Chase MD Unavailable Pelon Arellano MD Unavailable [phone] Yulissa Vigil RN Unavailable Chan Jacobo MD Unavailable Pcp, Not Required Unavailable Unavailable Edilma Chase MD Unavailable Edilma Chase MD Unavailable Edilma Chase MD Primary Care Provider Edilma Chase MD Primary Care Provider [phone] Edilma Chase MD Unavailable [phone] Elizabeth Batista Unavailable [phone] Encounter Details Date Type Department Care Team (Late st Contact Info) Description 02/14/2023 Procedure Pass [facility], [address] [place] [address] Social History Tobacco Use Types Packs/Day Years [...] Answer Date Recorded Are you interested in more education? Not on rui e 10/06/2022 Are you concerned about learning? Not on file 10/06/2022 No 10/06/2022 No 10/06/2022 Food Answer Date Recorded Within the past [...] appointments or from getting medications? No 09/15/2020 Digital Access Answer Date Recorded No 10/27/2022 No 10/27/2022 Reliable internet access at home? Not on file 10/27/2022 Device with a working camera? Not on file Comments No Sex and Gender Information Value [...] Description 02/12/2025 4:30 PM EDT Office Visit [facility] [address] [place] [address] Edilma Chase MD 234 [facility], [address] [place] [address] documented as of this encounter Goals Goal [...] documented as of this encounter Care Teams Media Relations Coordinator Relationship Specialty Start Date End Date Edilma Chase MD [address] [place] [address] [email or web address] PCP - General Family Medicine 02/09/23 03/28/23 Edilma Chase MD [address] [place] [address] [email or web address] PCP - General Family Medicine 04/01/23 Roger Frank MD [address] [place] [address], [address] [address] [email or web address] Historical LMR Provider 03/26/17 Edilma Chase MD [address] [place] [address] [email or web address] Historical LMR Provider 03/26/17 Pelon Arellano MD [address] [place], [place] [address] [place] [address] [email or web address] Historical LMR Provider 03/26/17 Yulissa Vigil, RN [address] [place] [address] iC[employer] Dry Cleaner Presser 12/12/19 12/25/24 Chan Jacobo MD [address] [place] [address] 7 [place] [address] Insurance Assigned Provider 09/11/22 Pcp, Not Required [address] [place] [address] 02/09/23 Edilma Chase MD [address] [place] [address] 7 [place] [address] [email or web address] Family Medicine 02/09/23 03/28/23 Edilma Chase MD [address] [place] [address] 7 [place] [address] [email or web address] Family Medicine 02/09/23 03/28/23 Edilma Chase MD [address] [place] [address] 7 [place] [address] [email or web address] Insurance Assigned Provider 09/10/23 Elizabeth Batista 10 [place] [address] [facility] Community Health Worker 11/18/23 01/22/24 documented as of this encounter Additional Source Comments The information contained in this document represents components of the legal health record. It is not the complete legal health record.[facility]
--- OUTSIDE RECORDS SUMMARY | 2025-01-28 14:35 | XMS_ITS | Encounter Summary ---
Author Organization [facility] Address [address] [place] [address] [place] [address] Phone Care Team Providers Care Senior Internal Auditor Name Role Phone Roger Frank MD Unavailable Edilma Chase MD Unavailable [phone] Pelon Arellano MD Unavailable [phone] Gaye Pate CNP Primary Care Provider [phone] Luh Ayala MD Unavailable Yulissa Vigil RN Unavailable [phone] Chan Jacobo MD Unavailable Edilma Chase MD Primary Care Provider [phone] Pcp, Not Required Unavailable Unavailable Edilma Chase MD Unavailable Edilma Chase MD Unavailable Edilma Chase MD Primary Care Provider Edilma Chase MD Primary Care Provider [phone] Edilma Chase MD Unavailable [phone] Elizabeth Batista Unavailable [phone] Encounter Details Date Type Department Care Team (Late st Contact Info) Description 09/06/2022 Procedure Pass [place] [place] [address] Social History Tobacco Use Types Packs/Day Years [...] high school, GED, job training, learning the [place] language, technical skills, or developing parenting skills)? [...] Description 02/12/2025 4:30 PM EDT Office Visit [facility] [address] [place] [address] Edilma Chase MD 234 [facility], [address] [place] [address] [email or web address] documented as of this encounter Goals Goal [...] documented as of this encounter Care Teams Senior Internal Auditor Relationship Specialty Start Date End Date Gaye Pate CNP [address] [facility], 2nd [place] [address] [email or web address] PCP - General 06/21/17 01/27/23 Edilma Chase MD [address] [place] [address] 7 [place] [address] [email or web address] PCP - General Family Medicine 01/28/23 01/31/23 Edilma Chase MD [address] [place] [address] 7 [place] [address] [email or web address] PCP - General Family Medicine 02/09/23 03/28/23 Edilma Chase MD [address] [place] [address] 7 [place] [address] [email or web address] PCP - General Family Medicine 04/01/23 Roger Frank MD [address] [place] [address], [facility] [address] [place] [address] [email or web address] Historical LMR Provider 03/26/17 Edilma Chase MD [address] [place] [address] 7 [place] [address] [email or web address] Historical LMR Provider 03/26/17 Pelon Arellano MD [address] [place], [place] [address] [place] [address] [email or web address] Historical LMR Provider 03/26/17 Luh Ayala MD [address] [place] [address] 7 [place] [address] [email or web address] Insurance Assigned Provider 09/03/1709/11/22 Yulissa Vigil, RN [address] [place] [address] [email or web address] iCMP Lumber Sticker 12/12/19 12/25/24 Chan Jacobo MD [address] [place] [address] 7 [place] [address] [email or web address] Insurance Assigned Provider 09/11/22 Pcp, Not Required [address] [place] [address] 02/09/23 Edilma Chase MD [address] [place] [address] 7 [place] [address] [email or web address] Family Medicine 02/09/23 03/28/23 Edilma Chase MD 234 [facility] 7 [place] [address] [email or web address] Family Medicine 02/09/23 03/28/23 Edilma Chase MD [address] [place] [address] 7 [place] [address] [email or web address] Insurance Assigned Provider 09/10/23 Elizabeth Batista [address] [place] [address] [email or web address] [facility] Community Health Worker 11/18/23 01/22/24 documented as of this encounter Additional Source Comments The information contained in this document represents components of the legal health record. It is not the complete legal health record.[facility]
--- OUTSIDE RECORDS SUMMARY | 2025-01-28 14:35 | XMS_ITS | Encounter Summary ---
Author Organization [facility] Address [address] [place] [address] [place] [address] Phone Care Team Providers Care Assembler Knife Name Role Phone Roger Frank MD Unavailable Edilma Chase MD Unavailable Pelon Arellano MD Unavailable Yulissa Vigil RN Unavailable Pcp, Not Required Unavailable Unavailable Edilma Chase MD Primary Care Provider Edilma Chase MD Unavailable Encounter Details Date Type Department Care Team (Late st Contact Info) Description 06/05/2024 Procedure Pass [facility], Ct Scan - [address] [address] Social History Tobacco Use Types Packs/Day Years [...] high school, GED, job training, learning the Montenegrin language, technical skills, or developing parenting skills)? [...] your housing situation today? I have ramona sing 05/05/2024 How many times have you move [...] on file documented as of this encounter Functional Status * Calculated C-SSRS Risk Score (Lifetime/Recent) Answer Date of Assessment Author No Risk Indicated 06/05/2024 7:24 AM Myra Baez RN * Tilden Suicide Severity Rating Scale (Screener/Recent Self-Report) Question Answer Date of Assessment Author 1. Wish to be (Past 1 Month) No 06/05/2024 7:24 AM Lei Luz, MAX 2. Non-Specific Active Suicidal Thoughts (Past 1 Month) No 06/05/2024 7:24 AM Lei Luz, MAX documented as of this encounter Plan of Treatment Upcoming Encounters Date Type Department Care Team (Late st Contact Info) Description 02/12/2025 4:30 PM EDT Office Visit [facility] [address] [place] [address] Edilma Chase MD [address] [place] [address] [address] [place] [address] [email or web address] documented as of this encounter Goals Goal [...] Symptom management Task/Interventions: Pt will schedule with [facility] orthopedic documented as of this encounter Visit [...] Time PHQ-2 Depression Total Score: 0 05/05/20 10:47 AM EST documented as of this encounter Care Teams Assembler Knife Relationship Specialty Start Date End Date Edilma Chase MD [address] [place] [address] [email or web address] PCP - General Family Medicine 04/01/23 Roger Frank MD [address] [place] [address] [email or web address] Historical LMR Provider 03/26/17 Edilma Chase MD [address] [place] [address] [email or web address] Historical LMR Provider 03/26/17 Pelon Arellano MD [address] [place], [place] [address] [place] [address] [email or web address] Historical LMR Provider 03/26/17 Yulissa Vigil, RN [address] [place] [address] [email or web address] iCMP Implementation Manager 12/12/19 12/25/24 Pcp, Not Required [address] [place] [address] 02/09/23 Edilma Chase MD [address] [place] [address] [email or web address] Insurance Assigned Provider 09/10/23 documented as of this encounter Additional Source Comments The information contained in this document represents components of the legal health record. It is not the complete legal health record.[facility]
--- OUTSIDE RECORDS SUMMARY | 2025-01-28 14:35 | XMS_ITS | Encounter Summary ---
Author Organization [facility] Address [address] [place] [address] [place] [address] Phone Care Team Providers Care Form Block Maker Name Role Phone Roger Frank MD Unavailable [phone] Edilma Chase MD Unavailable [phone] Pelon Arellano MD Unavailable [phone] Gaye Pate SENIOR CREDIT OFFICER Primary Care Provider Luh Ayala MD Unavailable [phone] Yulissa Vigil RN Unavailable [phone] Elizabeth Batista Unavailable [phone] Elizabeth Batista Unavailable [phone] Elizabeth Batista Unavailable [phone] Elizabeth Batista Unavailable [phone] Chan Jacobo MD Unavailable Edilma Chase MD Primary Care Provider [phone] Pcp, Not Required Unavailable Unavailable Edilma Chase MD Unavailable [phone] Edilma Chase MD Unavailable [phone] Edilma Chase MD Primary Care Provider [phone] Edilma Chase MD Primary Care Provider [phone] Edilma Chase MD Unavailable Elizabeth Batista Unavailable [phone] Encounter Details Date Type Department Care Team (Late Contact Info) Description 10/06/2021 Procedure Pass [facility], Ct Scan - [facility] [address] [place] [address] Social History Tobacco Use Types Packs/Day Years [...] high school, GED, job training, learning the Algerian language, technical skills, or developing parenting skills)? [...] Encounters Date Type Department Care Team (Late Contact Info) Description 02/12/2025 4:30 PM EDT Office Visit [facility] Medicine [address] [place] [address] Edilma Chase MD 234 [facility] 7 [place] [address] [email or web address] documented as of this encounter Goals Goal [...] documented as of this encounter Care Teams Form Block Maker Relationship Specialty Start Date End Date Gaye Pate CNP 15 [facility], 2nd [place] [address] [email or web address] PCP - General 06/21/17 01/27/23 Edilma Chase MD [address] [place] [address] 7 [place] [address] [email or web address] PCP - General Family Medicine 01/28/23 01/31/23 Edilma Chase MD [address] [place] [address] 7 [place] [address] [email or web address] PCP - General Family Medicine 02/09/23 03/28/23 Edilma Chase MD [address] [place] [address] 7 [place] [address] [email or web address] PCP - General Family Medicine 04/01/23 Roger Frank MD [address] [place] [address] 301 [place] [address] [email or web address] Historical LMR Provider 03/26/17 Edilma Chase MD [address] [place] [address] 7 [place] [address] [email or web address] Historical LMR Provider 03/26/17 Pelon Arellano MD [address] [place], [place] [address] [place] [address] [email or web address] Historical LMR Provider 03/26/17 Luh Ayala MD [address] [place] [address] 7 [place] [address] [email or web address] Insurance Assigned Provider 09/03/1709/11/22 Yulissa Vigil, RN [address] [place] [address] [email or web address] [facility] Aviation Boatswain'S Mate 12/12/19 12/25/24 Elizabeth Batista [address] [place] [address] [facility] Community Health Worker 07/09/21 11/04/21 Elizabeth Batista [address] [place] [address] [phone] [facility] Community Health Worker 10/29/21 01/31/22 Elizabeth Batista [address] [place] [address] [email or web address] 03/01/22 03/03/22 Elizabeth Batista [address] [place] [address] [facility] Community Health Worker 04/26/22 06/02/22 Chan Jacobo MD [address] [place] [address] [email or web address] Insurance Assigned Provider 09/11/22 Pcp, Not Required [address] [place] [address] 02/09/23 Edilma Chase MD [address] [place] [address] [email or web address] Family Medicine 02/09/23 03/28/23 Edilma Chase MD [address] [place] [address] [email or web address] Family Medicine 02/09/23 03/28/23 Edilma Chase MD [address] [place] [address] [email or web address] Insurance Assigned Provider 09/10/23 Elizabeth Batista [address] [place] [address] [email or web address] [facility] Community Health Worker 11/18/23 01/22/24 documented as of this encounter Additional Source Comments The information contained in this document represents components of the legal health record. It is not the complete legal health record.[facility]
--- OUTSIDE RECORDS SUMMARY | 2025-01-28 14:35 | XMS_ITS | Encounter Summary ---
Author Organization [facility] Address [address] [place] [address] Phone Care Team Providers Care Wire Mesh Filter Fabricator Name Role Phone Larry Payne MD Unavailable Roger Frank MD Unavailable [phone] Felipe Brooks MD Unavailable [phone] Tr West MD Unavailable [phone] Mannie Pino PA-C Unavailable +[phone] Yulissa Purvis DO Unavailable [phone] Unavailable [email or web address] Eloina Ash MD Unavailable Edilma Chase MD Unavailable [phone] Maribell Mendoza MD Unavailable +[phone] Pelon Arellano MD Unavailable Gaye Pate [facility] Primary Care Provider [phone] Luh Ayala MD Unavailable [phone] Yulissa Vigil RN Unavailable [phone] Elizabeth Batista Unavailable [phone] Elizabeth Batista Unavailable [phone] Lester, Elizabeth Unavailable [phone] Elizabeth Batista Unavailable [phone] Elizabeth Batista Unavailable [phone] Elizabeth Batista Unavailable [phone] LesterRamas Unavailable [phone] Chan Jacobo MD Unavailable Edilma Chase MD Primary Care Provider Pcp, Not Required Unavailable Unavailable Edilma Chase MD Unavailable [phone] Edilma Chase MD Unavailable [phone] Edilma Chase MD Primary Care Provider [phone] Edilma Chase MD Primary Care Provider [phone] Edilma Chase MD Unavailable Elizabeth Batista Unavailable [phone] Encounter Details Date Type Department Care Team (Late st Contact Info) Description 02/05/2020 Procedure Pass [facility], Ct Scan - [facility] 30 [place] [address] Social History Tobacco Use Types Packs/Day Years [...] Description 02/12/2025 4:30 PM EDT Office Visit [facility] Medicine [address] [place], [place] [phone] Edilma Chase MD 234 [facility], [address] [place], [place] [phone] [email or web address] documented as of this encounter Goals Goal [...] documented as of this encounter Care Teams Wire Mesh Filter Fabricator Relationship Specialty Start Date End Date Gaye Pate CNP [address] [place] [address], 2nd [place] [address] [email or web address] PCP - General 06/21/17 01/27/23 Edilma Chase MD [address] [place] [address] 7 [place] [address] [email or web address] PCP - General Family Medicine 01/28/23 01/31/23 Edilma Chase MD 234 [facility] 7 [place] [address] [email or web address] PCP - General Family Medicine 02/09/23 03/28/23 Edilma Chase MD 234 [facility] 7 [place] [address] [email or web address] PCP - General Family Medicine 04/01/23 Larry Payne MD [address] [facility] [address] [address] Historical LMR Provider 03/26/17 2 Roger Frank MD [address] [place] [address] [email or web address] Historical LMR Provider 03/26/17 Felipe Brooks MD [address] [place] [address] Historical LMR Provider 03/26/17 Tr West MD [address] [place] [address] [email or web address] Historical LMR Provider 03/26/17 06/13/21 Mannie Pino PA-C [address] [place] [address] [facility], [place] [address] [email or web address] Historical LMR Provider 03/26/17 06/13/21 Yulissa Purvis DO [address] [place] [address] Historical LMR Provider 03/26/17 2 Jessi Rivero, RDCS Historical LMR Provider 03/26/17 06/13/21 Eloina Ash MD [address] [place] [address] [facility], [place] [address] Historical LMR Provider 03/26/17 Edilma Chase MD [address] [place] [address] 7 [place] [address] [email or web address] Historical LMR Provider 03/26/17 Maribell Mendoza MD [address] [place] [address] [facility], [place] [address] [email or web address] Historical LMR Provider 03/26/17 06/13/21 Pelon Arellano MD [address] [place], [place] [address] [place] [address] [email or web address] Historical LMR Provider 03/26/17 Luh Ayala MD [address] [place] [address] 7 [place] [address] [email or web address] Insurance Assigned Provider 09/03/17 09/11/22 Yulissa Vigil, RN [address] [place] [address] [phone] [email or web address] [employer] Industrial Commercial Groundskeeper 12/12/19 12/25/24 Elizabeth Batista [address] [place] [address] [phone] [email or web address] Community Health Worker 02/28/20 04/16/20 Elizabeth Batista [address] [place] [address], [place] [address] [email or web address] Community Health Worker 07/17/20 02/23/21 Elizabeth Batista [address] [place] [address], [place] [address] [email or web address] Community Health Worker 07/09/21 07/23/21 Elizabeth Batista [address] [place] [address], [place] [address] [email or web address] Community Health Worker 07/09/21 11/04/21 Elizabeth Batista [address] [place] [address], [place] [address] [email or web address] Community Health Worker 10/29/21 01/31/22 Elizabeth Batista [address] [place] [address] [email or web address] 03/01/22 03/03/22 Elizabeth Batista [address] [place] [address], [place] [address] [email or web address] Community Health Worker 04/26/22 06/02/22 Chan Jacobo MD [address] [place] [address] 7 [place] [address] [email or web address] Insurance Assigned Provider 09/11/22 09/10/23 Pcp, Not Required [address] [place] [address] 02/09/23 Edilma Chase MD [address] [place] [address] 7 [place] [address] [email or web address] Family Medicine 02/09/23 03/28/23 Edilma Chase MD [address] [place] [address] 7 [place] [address] [email or web address] 02/09/23 03/28/23 Edilma Chase MD [address] [place] [address] 7 [place] [address] [email or web address] Insurance Assigned Provider 09/10/23 Elizabeth Batista 10 [place] [address] [email or web address] [employer] Community Health Worker 11/18/23 01/22/24 documented as of this encounter Additional Source Comments The information contained in this document represents components of the legal health record. It is not the complete legal health record.[facility]
--- OUTSIDE RECORDS SUMMARY | 2025-01-28 14:35 | XMS_ITS | Encounter Summary ---
Author Organization [facility] Address [address] [place] [address] Phone Care Team Providers Care Project Management Specialist Name Role Phone Larry Payne MD Unavailable Roger Frank MD Unavailable [phone] Felipe Brooks MD Unavailable [phone] Tr West MD Unavailable [phone] Mannie Pino PA-C Unavailable +[phone] Yulissa Purvis DO Unavailable [phone] Unavailable [email or web address] Eloina Ash MD Unavailable Edilma Chase MD Unavailable [phone] Maribell Mendoza MD Unavailable +[phone] Pelon Arellano MD Unavailable Gaye Pate [facility] Primary Care Provider [phone] Luh Ayala MD Unavailable [phone] Yulissa Vigil RN Unavailable [phone] Elizabeth Batista Unavailable [phone] Elizabeth Batista Unavailable [phone] Elizabeth Batista Unavailable +[phone] Elizabeth Batista Unavailable +[phone] Elizabeth Batista Unavailable [phone] Chan Jacobo MD Unavailable Edilma Chase MD Primary Care Provider [phone] Pcp, Not Required Unavailable Unavailable Edilma Chase MD Unavailable [phone] Edilma Chase MD Unavailable +[phone] Edilma Chase MD Primary Care Provider [phone] Edilma Chase MD Primary Care Provider [phone] Edilma Chase MD Unavailable +[phone] Elizabeth Batista Unavailable + [phone] Encounter Details Date Type Department Care Team (Late st Contact Info) Description 06/09/2021 Procedure Pass [facility] Imaging - [address] [place] [address], [address] [place] [address] Social History Tobacco Use Types Packs/Day Years [...] high school, GED, job training, learning the Armenian language, technical skills, or developing parenting skills)? [...] PM EDT Office Visit [facility] [address] [place] [address] Edilma Chase MD 234 [facility], [address] [place] [address] [email or web address] documented as of this encounter Goals Goal [...] documented as of this encounter Care Teams Project Management Specialist Relationship Specialty Start Date End Date Gaye PateCLAU 15 [facility], 2nd [place] [address] [email or web address] PCP - General 06/21/17 01/27/23 Edilma Chase MD [address] [place] [address] 7 [place] [address] [email or web address] PCP - General Family Medicine 01/28/23 01/31/23 Edilma Chase MD [address] [place] [address] [email or web address] PCP - General Family Medicine 02/09/23 03/28/23 Edilma Chase MD [address] [place] [address] 7 [place] [address] [email or web address] PCP - General Family Medicine 04/01/23 Larry Payne MD [address] [place] [address] 1st Floor [address] [place] [address] Historical LMR Provider 03/26/17 2 Roger Frank MD 22 [facility], [address] [place] [address] [email or web address] Historical LMR Provider 03/26/17 Felipe Brooks MD [address] [place] [address] Historical LMR Provider 03/26/17 Tr West MD [address] [place] [address] [email or web address] Historical LMR Provider 03/26/17 06/13/21 Mannie Pino PA-C [address] [place] [address] [facility] [place] [address] Historical LMR Provider 03/26/17 06/13/21 Yulissa Purvis DO [address] [place] [address] Historical LMR Provider 03/26/17 2 Jessi Rivero, RDCS Historical LMR Provider 03/26/17 06/13/21 Eloina Ash MD [address] [place] [address] [facility] [place] [address] Historical LMR Provider 03/26/17 Edilma Chase MD [address] [place] [address], [address] [place] [address] Historical LMR Provider 03/26/17 Maribell Mendoza MD [address] [place] [address] [facility] [place] [address] Historical LMR Provider 03/26/17 06/13/21 Pelon Arellano MD [address] [place] [address] [address] [place] [address] [email or web address] Historical LMR Provider 03/26/17 Luh Ayala MD 234 [facility] 7 [place] [address] [email or web address] Insurance Assigned Provider 09/03/17 09/11/22 Yulissa Vigil RN [address] [place] [address] [email or web address] [facility] Hand Iii Cutter 12/12/19 12/25/24 Elizabeth Batista [address] [place] [address] [email or web address] [facility] Community Health Worker 07/09/21 07/23/[address] [address] [email or web address] [facility] Community Health Worker 07/09/21 11/04/[address] [place] [address] [email or web address] Community Health Worker 10/29/21 01/31/[address] [address] 03/01/22 03/03/[address] [address] [email or web address] [facility] Community Health Worker 04/26/22 06/02/22 Chan Jacobo MD [address] [place] [address] 7 [address] [place] [address] [email or web address] Insurance Assigned Provider 09/11/22 09/10/23 Pcp, Not Required [address] [place] [address] 02/09/23 Edilma Chase MD [address] [place] [address] 7 [address] [place] [address] [email or web address] Family Medicine 02/09/23 03/28/23 Edilma Chase MD [address] [place] [address] 7 [place] [address] [email or web address] Family Medicine 02/09/23 03/28/23 Edilma Chase MD [address] [place] [address] [email or web address] Insurance Assigned Provider 09/10/23 Elizabeth Batista 10 [place] [address] [email or web address] Community Health Worker 11/18/23 01/22/24 documented as of this encounter Additional Source Comments The information contained in this document represents components of the legal health record. It is not the complete legal health record.[facility]
--- OUTSIDE RECORDS SUMMARY | 2025-01-28 14:36 | XMS_ITS | Encounter Summary ---
Author Organization [facility] Address [address] [place] [address] [place] [address] Phone Care Team Providers Care Wholesale Loan Processor Name Role Phone Roger Frank MD Unavailable Edilma Chase MD Unavailable [phone] Pelon Arellano MD Unavailable Yulissa Vigil RN Unavailable Pcp, Not Required Unavailable Unavailable Edilma Chase MD Primary Care Provider [phone] Edilma Chase MD Unavailable Elizabeth Batista Unavailable [phone] Encounter Details Date Type Department Care Team (Late st Contact Info) Description 01/05/2024 Procedure Pass [facility] - [address] [place] [address] Social History Tobacco Use Types Packs/Day Years [...] high school, GED, job training, learning the Iraqi language, technical skills, or developing parenting skills)? [...] Description 02/12/2025 4:30 PM EDT Office Visit [facility] Medicine [address] [place] [address] Edilma Chase MD 234 [facility], [address] [place] [address] [email or web address] documented as [...] Symptom management Task/Interventions: Pt will schedule with [facility] documented as of this encounter Visit [...] documented as of this encounter Care Teams Wholesale Loan Processor Relationship Specialty Start Date End Date Edilma Chase MD [address] [place] [address] 7 [place] [address] [email or web address] PCP - General Family Medicine 04/01/23 Roger Frank MD [address] [place] [address], [address] [place] [address] [email or web address] Historical LMR Provider 03/26/17 Edilma Chase MD [address] [place] [address] 7 [place] [address] [email or web address] Historical LMR Provider 03/26/17 Pelno Arellano MD [address] [place] [address] [address] [place] [address] [email or web address] Historical LMR Provider 03/26/17 Yulissa Vigil, MAX [address] [place] [address] [email or web address] iCMP Speech Language Specialist 12/12/19 12/25/24 Pcp, Not Required [address] [place] [address] 02/09/23 Edilma Chase MD [address] [place] [address] [address] [place] [address] [email or web address] Insurance Assigned Provider 09/10/23 Elizabeth Batista [address] [place] [address] [email or web address] [facility] Work[facility] 11/18/23 01/22/24 documented as of this encounter Additional Source Comments The information contained in this document represents components of the legal health record. It is not the complete legal health record.[facility]
--- OUTSIDE RECORDS SUMMARY | 2025-01-28 14:36 | XMS_ITS | Encounter Summary ---
Author Organization [facility] Address [address] [place] [address] Phone Care Team Providers Care Literacy Consultant Name Role Phone Larry Payne MD Unavailable Roger Frank MD Unavailable Felipe Brooks MD Unavailable [phone] Tr West MD Unavailable [phone] Mannie Pino PA-C Unavailable +[phone] Yulissa Purvis DO Unavailable [phone] Unavailable [email or web address] Eloina Ash MD Unavailable Edilma Chase MD Unavailable [phone] Maribell Mendoza MD Unavailable +[phone] Pelon Arellano MD Unavailable Gaye Pate [facility] Primary Care Provider [phone] Luh Ayala MD Unavailable [phone] Amanda Huang RN Unavailable [phone] Yulissa Vigil RN Unavailable [phone] Elizabeth Batista Unavailable [phone] Elizabeth Batista Unavailable [phone] Elizabeth Batista Unavailable Elizabeth Batista Unavailable [phone] Elizabeth Batista Unavailable [phone] Elizabeth Batista Unavailable [phone] Rama Batistas Unavailable [phone] Chan Jacobo MD Unavailable Edilma Chase MD Primary Care Provider [phone] Pcp, Not Required Unavailable Unavailable Edilma Chase MD Unavailable [phone] Edilma Chase MD Unavailable [phone] Edilma Chase MD Primary Care Provider [phone] Edilma Chase MD Primary Care Provider [phone] Edilma Chase MD Unavailable [phone] Elizabeth Batista Unavailable [phone] Encounter Details Date Type Department Care Team (Late st Contact Info) Description 04/06/2018 Procedure Pass [address] [place] [address] Social History Tobacco Use Types Packs/Day Years [...] - Inhaled Oxygen Concentration - - Weight 55.3 kg (122 lb) 04/08/2018 9:34 AM EDT Height 162.6 cm (5' 4 ) 04/08/2018 9:34 AM EDT Body Mass Index 20.94 04/08/2018 9:34 AM EDT documented in this encounter Plan of Treatment Upcoming Encounters Date Type Department Care Team (Late st Contact Info) Description 02/12/2025 4:30 PM EDT Office Visit [facility] [address] [place] [address] Edilma Chase MD [address] [address] [email or web address] documented as of this encounter Visit Diagnoses [...] documented as of this encounter Care Teams Literacy Consultant Relationship Specialty Start Date End Date Gaye Pate CNP [address] [place] [address], [address] [place] [address] PCP - General 06/21/17 01/27/23 Edilma Chase MD [address] [place] [address] [email or web address] PCP - General Family Medicine 01/28/23 01/31/23 Edilma Chase MD 234 [facility] 7 [place] [address] [email or web address] PCP - General Family Medicine 02/09/23 03/28/23 Edilma Chase MD 234 [facility] 7 [place] [address] [email or web address] PCP - General Family Medicine 04/01/23 Larry Payne MD [address] [place] [address] [address] Historical LMR Provider 03/26/17 2 Roger Frank MD [address] [place] [address] [email or web address] Historical LMR Provider 03/26/17 Felipe Brooks MD [address] [place] [address] Historical LMR Provider 03/26/17 Tr West MD [address] [place] [address] [email or web address] Historical LMR Provider 03/26/17 06/13/21 Mannie Pino PA-C [address] [place] [address] Orthopedics & Sports Medicine, [place] [address] [email or web address] Historical LMR Provider 03/26/17 06/13/21 Yulissa Purvis DO [address] [place] [address] Historical LMR Provider 03/26/17 2 Jessi Rivero, RD Historical LMR Provider 03/26/17 06/13/21 Eloina Ash MD [address] [place] [address] Orthopedics Sports [facility], [place] [address] Historical LMR Provider 03/26/17 Edilma Chase MD [address] [place] [address] 7 [place] [address] [email or web address] Historical LMR Provider 03/26/17 Maribell Mendoza MD [address] [place] [address] Orthopedics Sports [facility], [place] [address] [email or web address] Historical LMR Provider 03/26/17 06/13/21 Pelon Arellano MD [address] [place], [place] [address] [place] [address] [email or web address] Historical LMR Provider 03/26/17 Luh Ayala MD [address] [place] [address] 7 [place] [address] [email or web address] Insurance Assigned Provider 09/03/17 09/11/22 Amanda Huang RN [address] [place] [address] [email or web address] iCMP Senior Behavioral Scientist 06/19/18 07/19/18 Yulissa Vigil RN [address] [place] [address] [email or web address] Senior Behavioral Scientist 12/12/19 12/25/24 Elizabeth Batista [address] [place] [address], [place] [address] [email or web address] Community Health Worker 02/28/20 04/16/20 Elizabeth Batista [address] [place] [address], [place] [address] [email or web address] Community Health Worker 07/17/20 02/23/21 Elizabeth Batista [address] [place] [address], [place] [address] [email or web address] Community Health Worker 07/09/21 07/23/21 Elizabeth Batista [address] [place] [address], [place] [address] [email or web address] Community Health Worker 07/09/21 11/04/21 Elizabeth Batista [address] [place] [address] [email or web address] Community Health Worker 10/29/21 01/31/22 Elizabeth Batista [address] [place] [address] [email or web address] 03/01/22 03/03/22 Elizabeth Batista [address] [place] [address] [email or web address] Community Health Worker 04/26/22 06/02/22 Chan Jacobo MD [address] [place] [address] 7 [place] [address] [email or web address] Insurance Assigned Provider 09/11/22 09/10/23 Pcp, Not Required [address] [place] [address] 02/09/23 Edilma Chase MD [address] [place] [address] 7 [place] [address] [email or web address] Family Medicine 02/09/23 03/28/23 Edilma Chase MD 234 [facility] 7 [place] [address] [email or web address] Family Medicine 02/09/23 03/28/23 Edilma Chase MD [address] [place] [address] 7 [place] [address] [email or web address] Insurance Assigned Provider 09/10/23 Elizabeth Batista [address] [place] [address] [email or web address] Community [facility] Work[facility] 11/18/23 01/22/24 documented as of this encounter Additional Source Comments The information contained in this document represents components of the legal health record. It is not the complete legal health record.[facility]
--- OUTSIDE RECORDS SUMMARY | 2025-01-28 14:36 | XMS_ITS | Encounter Summary ---
Author Organization [facility] Address [address] [place] [address] Phone Care Team Providers Care Centerless Grinder Name Role Phone Larry Payne MD Unavailable Roger Frank MD Unavailable Felipe Brooks MD Unavailable [phone] Tr West MD Unavailable [phone] Mannie Pino PA-C Unavailable +[phone] Yulissa Purvis DO Unavailable [phone] Unavailable [email or web address] Eloina Ash MD Unavailable Edilma Chase MD Unavailable [phone] Maribell Mendoza MD Unavailable [phone] Pelon Arellano MD Unavailable Gaye Pate [facility] Primary Care Provider [phone] Luh Ayala MD Unavailable [phone] Yulissa Vigil RN Unavailable [phone] Elizabeth Batista Unavailable [phone] Elizabeth Batista Unavailable [phone] Elizabeth Batista Unavailable [phone] Lester Elizabeth Unavailable [phone] Lester Elziabeth Unavailable [phone] Lester Elizabeth Unavailable [phone] Lester Elizabeth Unavailable [phone] Chan Jacobo MD Unavailable Edilma Chase MD Primary Care Provider [phone] Pcp, Not Required Unavailable Unavailable Edilma Chase MD Unavailable [phone] Edilma Chase MD Unavailable [phone] Edilma Chase MD Primary Care Provider [phone] Edilma Chase MD Primary Care Provider [phone] Edilma Chase MD Unavailable [phone] Elizabeth Batista Unavailable [phone] Encounter Details Date Type Department Care Team (Late st Contact Info) Description 07/31/2019 [address] [place] [address] Social History Tobacco Use Types Packs/Day Years Used Date Smoking Tobacco: Former Cigarettes 0.5 15 2017 Smokeless Tobacco: Never Alcohol Use Standard [...] - Inhaled Oxygen Concentration - - Weight 57.2 kg (126 lb) 08/01/2019 3:42 PM EST Height 160 cm (5' 3 ) 08/01/2019 3:42 PM EST Body Mass Index 22.32 08/01/2019 3:42 PM EST documented in this encounter Plan of Treatment Upcoming Encounters Date Type Department Care Team (Late st Contact Info) Description 02/12/2025 4:30 PM EDT Office Visit [facility] [address] [place] [address] Edilma Chase MD [address] [address] [email or web address] documented as of this encounter Visit Diagnoses [...] documented as of this encounter Care Teams Centerless Grinder Relationship Specialty Start Date End Date Gaye Pate CNP [address] [place] [address], [address] [place] [address] PCP - General 06/21/17 01/27/23 Edilma Chase MD [address] [place] [address] PCP - General Family Medicine 01/28/23 01/31/23 Edilma Chase MD 234 [facility] 7 [place] [address] [email or web address] PCP - General Family Medicine 02/09/23 03/28/23 Edilma Chase MD 234 [facility] 7 [place] [address] [email or web address] PCP - General Family Medicine 04/01/23 Larry Payne MD [address] [place] [address] [address] [address] Historical LMR Provider 03/26/17 2 Roger Frank MD [address] [place] [address] [email or web address] Historical LMR Provider 03/26/17 Felipe Brooks MD [address] [place] [address] Historical LMR Provider 03/26/17 Tr West MD [address] [place] [address] [phone] [email or web address] Historical LMR Provider 03/26/17 06/13/21 Mannie Pino PA-C [address] [place] [address] Orthopedics & Sports Medicine, [place] [address] [email or web address] Historical LMR Provider 03/26/17 06/13/21 Yulissa Purvis DO [address] [place] [address] Historical LMR Provider 03/26/17 2 Jessi Rivero, RDCS Historical LMR Provider 03/26/17 06/13/21 Eloina Ash MD [address] [place] [address] Orthopedics Sports [facility], [place] [address] [email or web address] Historical LMR Provider 03/26/17 Edilma Chase MD [address] [place] [address] 7 [place] [address] [email or web address] Historical LMR Provider 03/26/17 Maribell Mendoza MD [address] [place] [address] Orthopedics Sports [facility], [place] [address] [email or web address] Historical LMR Provider 03/26/17 06/13/21 Pelon Arellano MD [address] [place], [place] [address] [place] [address] [email or web address] Historical LMR Provider 03/26/17 Luh Ayala MD [address] [place] [address] 7 [place] [address] [email or web address] Insurance Assigned Provider 09/03/17 09/11/22 Yulissa Vigil, RN [address] [place] [address] [phone] [email or web address] iCMP Tractor Crane Engineer 12/12/19 12/25/24 Elizabeth Batista [address] [place] [address] [phone] [email or web address] Community Health Worker 02/28/20 04/16/20 Elizabeth Batista [address] [place] [address], [place] [address] [email or web address] Community Health Worker 07/17/20 02/23/21 Elizabeth Batista [address] [place] [address], [place] [address] [email or web address] Community Health Worker 07/09/21 07/23/21 Elizabeth Batista [address] [place] [address], [place] [address] [email or web address] Community Health Worker 07/09/21 11/04/21 Elizabeth Batista [address] [place] [address], [place] [address] [email or web address] Community Health Worker 10/29/21 01/31/22 Elizabeth Batista [address] [place] [address] [email or web address] 03/01/22 03/03/[address] [address] [email or web address] Community Health Worker 04/26/22 06/02/22 Chan Jacobo MD [address] [place] [address] 7 [place] [address] [email or web address] Insurance Assigned Provider 09/11/22 09/10/23 Pcp, Not Required [address] [place] [address] 02/09/23 Edilma Chase MD 234 [facility] 7 [place], [place] [phone] [email or web address] Family Medicine 02/09/23 03/28/23 Edilma Chase MD [address] [place] [address] 7 [place], [place] [phone] [email or web address] Family Medicine 02/09/23 03/28/23 Edilma Chase MD [address] [place] [address] 7 [place] [address] [email or web address] Insurance Assigned Provider 09/10/23 Elizabeth Batista 10 [place] [address] [email or web address] 11/18/23 01/22/24 documented as of this encounter Additional Source Comments The information contained in this document represents components of the legal health record. It is not the complete legal health record.[facility]
--- OUTSIDE RECORDS SUMMARY | 2025-01-28 14:36 | XMS_ITS | Encounter Summary ---
Author Organization [facility] Address [address] [place] [address] Phone Care Team Providers Care Flooring Mechanic Name Role Phone Larry Payne MD Unavailable Roger Frank MD Unavailable Felipe Brooks MD Unavailable [phone] Tr West MD Unavailable [phone] Mannie Pino PA-C Unavailable [phone] Yulissa Purvis DO Unavailable [phone] Unavailable [email or web address] Eloina Ash MD Unavailable Edilma Chase MD Unavailable [phone] Maribell Mendoza MD Unavailable [phone] Pelon Arellano MD Unavailable Gaye Pate [facility] Primary Care Provider [phone] Luh Ayala MD Unavailable [phone] Yulissa Vigil RN Unavailable [phone] Elizabeth Batista Unavailable [phone] Elizabeth Batista Unavailable [phone] Lester, Elizabeth Unavailable [phone] Elizabeth Batista Unavailable [phone] Elizabeth Batista Unavailable [phone] Elizabeth Batista Unavailable Elizabeth Batista Unavailable [phone] Chan Jacobo MD Unavailable Edilma Chase MD Primary Care Provider [phone] Pcp, Not Required Unavailable Unavailable Edilma Chase MD Unavailable [phone] Edilma Chase MD Unavailable [phone] Edilma Chase MD Primary Care Provider [phone] Edilma Chase MD Primary Care Provider [phone] Edilma Chase MD Unavailable Elizabeth Batista Unavailable [phone] Encounter Details Date Type Department Care Team (Late st Contact Info) Description 08/10/2018 Ancillary Orders [facility], X-Ray - [address] [place] [address] Herlinda Kraus, PACamiloC [address] [facility], [address] [place] [address] [email or web address] Pain Social History Tobacco Use Types Packs/Day Years [...] Description 02/12/2025 4:30 PM EDT Office Visit [facility] Medicine [address] [place] [address] Edilma Chase MD [address] [place] [address], [address] [place] [address] [email or web address] documented as of this encounter Results * XR FOOT 3 OR MORE VIEWS (LEFT) (08/10/2018 6:24 PM EST) Anatomical Region Laterality Modality Foot Left Radiographic Kaylynn ging 08/10/2018 7:45 PM EST Impressions 08/10/2018 7:47 PM EST No acute bony injury POS [id number] Narrative 08/10/2018 7:47 PM EST 4 views Compare 09/29/2015 No fracture or dislocation. No opaque foreign bodies. 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 Procedure Note Mannie Mac MD - 08/10/2018 4 views Compare 09/29/2015 No fracture or dislocation. No opaque foreign bodies. 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 IMPRESSION: No acute bony injury POS [id number] Herlinda Kraus PA-C IMG XR LOWER EXTREMITY Final Result documented in this encounter Visit Diagnoses Diagnosis Pain Generalized pain documented in this encounter Additional Health Concerns [...] documented as of this encounter Care Teams Flooring Mechanic Relationship Specialty Start Date End Date Gaye Pate CLAU [address] [facility], 2nd [place] [address] [email or web address] PCP - General 06/21/17 01/27/23 Edilma Chase MD [address] [place] [address] 7 [place] [address] [email or web address] PCP - General Family Medicine 01/28/23 01/31/23 Edilma Chase MD [address] [place] [address] 7 [place] [address] [email or web address] PCP - General Family Medicine 02/09/23 03/28/23 Edilma Chase MD [address] [place] [address] [email or web address] PCP - General Family Medicine 04/01/23 Larry Payne MD [address] [place] [address] 1st Floor -[address] [place] [address] Historical LMR Provider 03/26/17 2 Roger Frank MD [address] [facility], [facility] [email or web address] [address] [place] [address] [email or web address] Historical LMR Provider 03/26/17 Felipe Brooks MD [address] [place] [address] Historical LMR Provider 03/26/17 Tr West MD [address] [place] [address] [email or web address] Historical LMR Provider 03/26/17 06/13/21 Mannie Pino PA-C [address] [place] [address] [facility], [place] [address] [email or web address] Historical LMR Provider 03/26/17 06/13/21 Yulissa Purvis DO [address] [place] [address] Historical LMR Provider 03/26/17 2 Jessi Rivero, RDCS Historical LMR Provider 03/26/17 06/13/21 Eloina Ash MD [address] [place] [address] [facility], [place] [address] Historical LMR Provider 03/26/17 Edilma Chase MD [address] [place] [address] 7 [place] [address] [email or web address] Historical LMR Provider 03/26/17 Maribell Mendoza MD [address] [place] [address] [facility], [place] [address] Historical LMR Provider 03/26/17 06/13/21 Pelon Arellano MD [address] [place] [address] [address] [place] [phone] [email or web address] Historical LMR Provider 03/26/17 Luh Ayala MD [address] [place] [address], [address] [place] Gutier[place] [address] [email or web address] Insurance Assigned Provider 09/03/17 09/11/22 Yulissa Vigil, MAX [address] [place] [address] [email or web address] In Service Coordinator 12/12/19 12/25/24 Elizabeth Batista [address] [place] [address] [email or web address] [facility] Community Health Worker 02/28/20 04/16/20 Elizabeth Batista [address] [place] [address] [facility] Worker 07/17/20 02/23/21 Elizabeth Batista [address] [place] [address] [facility] Worker 07/09/21 07/23/21 Elizabeth Batista [address] [place] [phone] [facility] Worker 07/09/21 11/04/21 Elizabeth Batista [address] [place] [phone] [facility] Worker 10/29/21 01/31/22 Elizabeth Batista [address] [place] [address] 03/01/22 03/03/22 Elizabeth Batista [address] [place] [address] [facility] Worker 04/26/22 06/02/22 Chan Jacobo MD [address] [place] [address] Insurance Assigned Provider 09/11/22 09/10/23 Pcp, Not Required [address] [place] [address] 02/09/23 Edilma Chase MD [address] [place] [address] [email or web address] Family Medicine 02/09/23 03/28/23 Edilma Chase MD [address] [place] [address] 7 [place] [address] [email or web address] Family Medicine 02/09/23 03/28/23 Edilma Chase MD [address] [place] [phone] Insurance Assigned Provider 09/10/23 Elizabeth Batista [address] [place] [address] [facility] Community Health Worker 11/18/23 01/22/24 documented as of this encounter Additional Source Comments The information contained in this document represents components of the legal health record. It is not the complete legal health record.[facility]
--- OUTSIDE RECORDS SUMMARY | 2025-01-28 14:36 | XMS_ITS | Encounter Summary ---
Author Organization [facility] Address [address] [place] [address] [address] [place] [address] Phone Care Team Providers Care Manufacturing Assembler Name Role Phone Roger Frank MD Unavailable Edilma Chase MD Unavailable [phone] Pelon Arellano MD Unavailable Yulissa Vigil RN Unavailable [phone] Pcp, Not Required Unavailable Unavailable Edilma Chase MD Primary Care Provider Edilma Chase MD Unavailable [phone] Reason for Visit * Reason Onset Date Comments Reschedule 11/13/2024 Encounter Details Date Type Department Care Team (Late st Contact Info) Description 11/13/2024 Telephone [facility] [address] [place], [place] [phone] Edilma Chase MD [address] [facility], [address] [place], [place] [phone] Reschedule Social History Tobacco Use Types Packs/Day Years [...] high school, GED, job training, learning the Bulgarian language, technical skills, or developing parenting skills)? [...] on file documented as of this encounter Progress Notes * Edilma Chase MD - 11/15/2024 12:26 PM EDT Yup! * Gerda Sigala CMA - 11/14/2024 8:16 AM EDT What are your thoughts about 11/20 at 4:45? * Adelso Hwang Jr. - 11/13/2024 2:24 PM EDT Reached patient to see if amenable to seeing another provider potentially or if timeframe can be adjusted. She would like an appointment before 11/23 when she sees her neurologist. * Truong Suresh - 11/13/2024 9:24 AM EDT Pt called to reschedule her 11/15 appt, which was cancelled due to her PCP's schedule changing. Pt stated that she is not able to accept the appt offereqd to her at 3:40 that day, due to a previously scheduled appt, but stated that the next available in bookit is too far in the future, and stated that she needs to see her PCP sooner than a month from now. Please contact and advise. Central Support Senior Java Engineer (Please do not reply to this user; this inbox is not monitored.) Thank you. documented in this encounter Plan of Treatment Upcoming Encounters Date Type Department Care Team (Late st Contact Info) Description 02/12/2025 4:30 PM EDT Office Visit [facility] [address] [place] [address] Edilma Chase MD [address] [phone] [email or web address] documented as of this [...] Symptom management Task/Interventions: Pt will schedule with [facility] orthopedic documented as of this encounter Visit Diagnoses Not on filedocumented in this encounter Additional Health Concerns Active Problems Noted Date Diagnosed Date Chronic Condition Self-Management 02/04/2020 Fall/Injury 02/04/2020 Assessment Noted Time PHQ-2 Depression Total Score: 0 05/05/20 24 10:47 AM EST documented as of this encounter Care Teams Manufacturing Assembler Relationship Specialty Start Date End Date Edilma Chase MD [address] [place] [address] [email or web address] PCP - General Family Medicine 04/01/23 Roger Frank MD [address] [place] [address], [address] [address] [email or web address] Historical LMR Provider 03/26/17 Edilma Chase MD [address] [place] [address] [email or web address] Historical LMR Provider 03/26/17 Pelon Arellano MD [address] [place] [address] [address] [place] [phone] [email or web address] Historical LMR Provider 03/26/17 Yulissa Vigil, RN [address] [place] [address] [email or web address] i[employer] Endless Track Vehicle Supervisor 12/12/19 12/25/24 Pcp, Not Required [address] [place] [address] 02/09/23 Edilma Chase MD [address] [place] [address], [address] [place] [address] [email or web address] Insurance Assigned Provider 09/10/23 documented as of this encounter Additional Source Comments The information contained in this document represents components of the legal health record. It is not the complete legal health record.[facility]
--- OUTSIDE RECORDS SUMMARY | 2025-01-28 14:36 | XMS_ITS ---
Care Plan Created on: January 28, 2025 Indira Camille : 1960 Sex: Female Author Organization [facility] Address [address] [place] [address] [place] [id number] Phone Care Team Providers Care Food And Nutrition Supervisor Name Role Phone Roger Frank MD Unavailable [phone] Edilma Chase MD Unavailable [phone] EileenPelon duffy MD Unavailable Pcp, Not Required Unavailable Unavailable Edilma hCase MD Primary Care Provider [phone] Edilma Chase MD Unavailable [phone] Active Problems Problem Noted Date Diagnosed Date Iron deficiency anemia 08/15/2024 Overview (08/15/2024): Started iron 05/2024 Needs to get FIT test F/u labs Seborrheic keratoses 05/11/2024 Overview (05/11/2024): 4 on right neck 05/2204 Verbal consent was obtained. Liquid nitrogen was pulsed on lesion(s) for 10 to 15 seconds with good effect. patient tolerated this well. Atrophic vaginitis 02/06/2024 Overview (11/20/2024): Topical estrogen Stress incontinence 02/06/2024 Asthma 10/19/2023 Overview (05/11/2024): I would recommend [facility] for her Assessment & Plan (10/19/2023 4:52 PM EDT): Camille has a history of asthma-I refilled her albuterol today. She was appreciative. Follow-up as needed. Routine general medical exam ination at a health care facility 06/02/2023 Overview (05/11/2024): Colon cancer screening - she elects cologuard Mammogram - yearly Derm - she does not see Pap- 2023 was normal, no more! She does have a Fhx of CAD in dad and we should watch risk factors closely - did have stress test in the past which was nl. CALI (generalized anxiety disorder) 09/13/2022 Overview (12/21/2024): Was taking wellbutrin but this was not helping so she stopped 02/2024 Started sertraline 25 mg and going up to 50 mg for better effect 07/20/2411/2024 up to 100 mg Stopped sertraline as she was having jaw clenching and it was not working. Try buspar 12/2024 Clonazepam daily prn Assessment & Plan (05/11/2024 1:31 PM EST): Trying zoloft since 02/2024 Raynaud's phenomenon 04/13/2021 Moderate episode of recurrent major depressive d isorder 07/31/2020 Overview (08/15/2024): Zoloft 50 mg Assessment & Plan (08/16/2022 10:44 AM EDT): She is feeling very depressed. She denies SI. I referred her to behavioral health. Asked her to remain on Wellbutrin Assessment & Plan (05/24/2022 4:26 PM EST): Continue Wellbutrin. Recommend seasonal light box Assessment & Plan (02/04/2022 5:06 PM EDT): Inadequate trial of Luvox due to GI side effects. Advised to continue Wellbutrin. Encouraged her to find a psychiatrist Assessment & Plan (09/10/2021 5:20 PM EDT): Continue Wellbutrin, add Luvox at bedtime as directed. Follow-up 4 weeks Assessment & Plan (04/13/2021 10:16 AM EST): Doing well on current regimen Assessment & Plan (12/15/2020 2:13 PM EDT): Doing better on current regimen Assessment & Plan (09/15/2020 2:37 PM EDT): She will try venlafaxine again. Continue wellbutrin 300 mg. FU 4 weeks w update re venlafaxine effect for depression & chronic pain Medial epicondylitis of right elbow 07/14/2020 Overview (08/23/2023): Many cortisone injections in the past - 7 total in 2.5 years She has subcutaneous fat atrophy and frequent ecchymosis Seeing dr Alvarez now [place] [facility] Does not want to be on oxycodone anymore so we will wean herself off. Assessment & Plan (09/06/2022 1:20 PM EDT): She doesn't think she will proceed w surgery. She can continue current low dose of oxycodone & med marijuana Assessment & Plan (08/16/2022 10:45 AM EDT): reluctant to recommend surgery given her orthopedists concerns. Assessment & Plan (05/24/2022 4:25 PM EST): She has had several steroid injections with Dr. Issa. Some of these have helped, some have not. Recently she reports that her symptoms are tolerable and she does not plan to pursue surgery Assessment & Plan (09/10/2021 5:19 PM EDT): Still following with Dr. Issa Assessment & Plan (04/13/2021 10:15 AM EST): discussed PRP injection, which I do not offer but has good data regarding effective ness for epicondylitis. She will discuss w her ortho Assessment & Plan (12/15/2020 2:11 PM EDT): Recommend epicondylitis band, rest, volatren gel Assessment & Plan (12/14/2020 5:56 PM EDT): I have explained to Camille that I am afraid of increasing the risk of tendon rupture with repeated cortisone injections over medial epicondyle therefore I suggested her non injection strategies. Continue icing, resting, alternating with warm pack prior to topical cream such as Arnica, Biofreeze, Voltaren, Blue Emu, Aspercreme versus medicated patch such as Salonpas or IcyHot patch. Joint protection, energy conservation techniques. Gentle, regular exercise routine as educated in OT-examples pictures and detailed descriptions printed for home use. Consider localized de-sensitization for example with capsaicin (Zostrix) cream or local OTC lidocaine patches applied for 12 hours daily with 12 hours rest without. Assessment & Plan (09/15/2020 2:34 PM EDT): Recent steroid injection helped Assessment & Plan (08/21/2020 10:42 AM EDT): Procedure: After an informed oral consent, under sterile conditions using Ethyl chloride spray for local anesthesia I have injected 30 mg DepoMedrol and 1.5 cc 1% Lidocaine into R medial epicondyle uneventfully. Details of post-procedure care were explained to the patient in the office and given in writing. Assessment & Plan (07/19/2020 12:33 PM EST): Joint protection, energy conservation. Gentle, regular exercise routine as educated by OT. Avoid falls, injuries, overuse. Topical cream versus patch, splinting as needed. Osteoarthritis of thumb, right 07/14/2020 Assessment & Plan (07/19/2020 12:34 PM EST): Gentle, regular exercise routine. Avoid injuries, overuse. Follow instructions on splinting and assistive devices with joint protection, energy conservation techniques from OT If symptoms worsening may need to consider local steroid injection. Chronic fatigue 06/27/2020 Assessment & Plan (06/29/2020 7:49 PM EST): Balance rest and activity. Sleep hygiene. Keep engaged in regular hobbies/favorite activities. Adhere to age-appropriate screenings and preventive strategies. Regular relaxation/meditation sessions. Gentle, regular exercise routine. Medical marijuana use 06/27/2020 Assessment & Plan (12/14/2020 6:04 PM EDT): Monitor for muscle tenderness, swelling and weakness Assessment & Plan (08/21/2020 10:57 AM EDT): Monitor for muscle tenderness, swelling and weakness Assessment & Plan (07/19/2020 12:37 PM EST): Monitor for muscle tenderness, swelling and weakness Assessment & Plan (07/06/2020 6:02 PM EST): Monitor for muscle tenderness, swelling and weakness Assessment & Plan (06/29/2020 7:52 PM EST): Monitor for muscle tenderness, swelling and weakness Neuropathy 01/25/2020 Overview (12/21/2024): Hands, feet, side of face and bottom lip. She has pain in her hands and feet more and more. Started [address] Hall at [facility] neuro. Initially thought to have MS, then Sjogrens w/ neurologic manifestations. Ultimately, given her further negative immunologic work up it was felt at that time that is was not consistent with a diagnosis of Sjogren's syndrome. She was sent for 2nd opinion to Dr Tru Carrasco [facility] Division of Immunologic, Inflammatory, and Infectious Neurological Disorders. There she was dx with length dependent large fiber neuropathy. He felt that her MRI findings were c/w microvascular disease. She would like to see neuro at [facility] but saw them once and they did not schedule follow up with her. Seeing someone new at [facility] 11/2024. Can have pain with this. Gabapentin did not help at at all. Someone else prescribed trileptal but she is hesitant to take this I will make a referral to [facility] for discussion or [facility] Assessment & Plan (02/04/2022 5:05 PM EDT): She did not respond well to Lyrica. She is not complaining of pain. I encouraged her to continue at least annual appointments with her longstanding neurologist as issues do tend to arise for her Assessment & Plan (04/13/2021 10:13 AM EST): She is not on active treatment but her sx seem to have improved since the winter. She is going to switch to [facility] neuro but does have an appt set up with Dr Hall in June. Assessment & Plan (12/15/2020 2:13 PM EDT): Recommend she arrange home health aid while her partner is away Assessment & Plan (09/15/2020 2:34 PM EDT): She will see if she can get EMG locally. She has had them done at [facility] in past Assessment & Plan (06/12/2020 10:53 AM EST): Planning to start DMARD & immunosuppressant after she gets COVID-19 vaccination She is referred to rheum for arthritis She is encouraged to continue exercise & use heat for joint pain & stiffness Continue medical marijuana Assessment & Plan (02/05/2020 10:05 AM EDT): Solumedrol infusion x 5 didn;t help her sx. She has FU w neuro. Falling 11/28/2019 Overview (08/15/2024): High fall risk due to neurologic disease. Declines physical therapy for strength and balance Assessment & Plan (12/15/2020 2:13 PM EDT): Discussed rescue alert when partner is away. She always carries cell phone so doesn't want the alert Sacroiliitis 10/19/2019 White matter disease 08/07/2019 Overview (10/27/2021): MRI Brain 07/2019 suggestive of MS per radiologist [facility] Neuro, Dr Hall, diagnosed pt w Sjogren's disease initially but w/u was negative. Sent to MS clinic at [facility] where they said her MRI findings were c/w microvascular disease. Assessment & Plan (10/27/2021 6:06 PM EDT): 61 year old female, with a long standing history of HTN, and more recently HLD, with a 5-6 year history for bilateral, distal paresthesias of the hands and feet, imbalance, who presents for follow up evaluation. The patient's clinical presentation is most consistent with a length dependent large fiber neuropathy process given sites of initiation and slow progression over the years further supported by neuro exam findings. There are also mild signs of imbalance that could be attributed to neuropathy. Review of her MRI brain notable for hyperintensities, symmetric in the dafne, possible left cerebellum hyperintensity, and supratentorially hyperintensity in the thalamus and white matter areas that is most consistent with microvascular disease. This is unchanged over two years. Spinal cord MRI does not support the diagnosis of MS. LP was done in 2020 with 1 nucleated cell and negative OCBs. Plan: - No additional neuroimaging recommended - Would recommend A1c, TSH, B12, BMP screening labs to be checked by PCP - Would recommend continued aggressive management of vascular risk factors. - No follow up needed in this MS speciality clinic Assessment & Plan (06/09/2021 3:46 PM EST): 60 year old female, with a long standing history of HTN, and more recently HLD, with a 5-6 year history for bilateral, distal paresthesias of the hands and feet, imbalance, who presents for initial evaluation. Overall impression, patients presentation clinically seems consistent with a length dependent large fiber neuropathy process given sites of initiation and slow progression over the years further supported by neuro exam findings. There are also mild signs of imbalance that could be attributed to neuropathy. Interesting patient also had symmetric hyperreflexia but down going toes. Review of her MRI brain notable for hyperintensities, symmetric in the dafne, possible left cerebellum hyperintensity, and supratentorially hyperintensity in the thalamus and white matter areas, that also have some symmetric characteristics to them. LP was done in 2020 with 1 nucleated cell and negative OCBs. Etiology of white matter changes is unclear but differential could include vascular changes in the setting of prolonged hypertension. Inflammatory etiologies are possible but some of these features are atypical of MS and other neurorheumatologic etiologies are possible but it's unclear if the patient has systemic Sjorgens at this time. Would recommend repeat MRI brain, C/T spine, neuropathy labs screening, and then consider if repeat EMG/NCS is indicated. Will follow up in 2-3 months. Plan: - MRI brain, C/T spine WWO contrast - A1c, TSH, B12, BMP screening labs (negative SPEP in 2020) - After this can consider expanded neuropathy serum studies/EMG/NCS - Will follow up in clinic virtually in 2-3 months Assessment & Plan (10/02/2019 2:25 PM EDT): Following w neuro for the paresthesias and subjective weakness. No improvement w lyrica yet Assessment & Plan (09/11/2019 3:52 PM EDT): Awaiting call back from neuro Assessment & Plan (08/30/2019 1:43 PM EDT): Dr Haas, [facility] neuro. Pt hasn't started tx yet. Planning to start amitriptyline for her paresthesias. Hoping to start immunomodulating agent soon. Chronic bilateral low back pain without sciatica 04/24/2019 Assessment & Plan (05/24/2022 4:26 PM EST): Recently having right low back pain. No red flags. Assessment & Plan (09/11/2019 3:53 PM EDT): stable Assessment & Plan (04/24/2019 12:19 PM EST): Increase gabapentin to 1200 mg daily. Advised of risks of daily Ibuprofen Recurrent UTI 07/13/2018 Overview (08/02/2019): [employer] Geodetic Technician: Dr Jessie Pond Taking trimethoprim post coitally. Taking cranberry supplement and using estrace Assessment & Plan (04/24/2019 12:17 PM EST): Recently UTI tx by Dr Pond Assessment & Plan (12/27/2018 5:35 AM EDT): No recent UTIs Assessment & Plan (09/14/2018 11:49 AM EDT): Dr. Pond. Now on the methenamine and vitamin C. Assessment & Plan (07/13/2018 6:50 PM EST): Continue probiotic, vit c & estrace topical. Referred to [facility] arthritis 01/03/2018 Overview (01/12/2024): OA hands. She was seeing dr issa and she does not want to go back. Seeing Dr alvarez in [place] as well. Does not want to see pijacinto. She will try splints and topicals, ice - this is not working She says that the night is the worst and she is not sleeping well. She will go back to see Dr Alvarez. Assessment & Plan (01/03/2018 12:55 PM EDT): Ibuprofen & ice recommended. Apply heat in AM for stiffness. Can try compressive sleeve or wrap for recent injury Tarsal tunnel syndrome of left side 09/06/2017 Assessment & Plan (09/06/2017 12:20 PM EDT): Plans surgery w Dr Collins 03/2018 Acquired cavus deformity of left foot 06/21/2017 Overview (06/21/2017): Had surgery with Dr. Collins 04/20/17 Assessment & Plan (06/21/2017 2:02 PM EST): Follow-up with Dr. Collins. Discuss orthotics. Chronic pain syndrome 06/21/2017 Overview (12/17/2022): Pt came to practice w dx of chronic pain secondary to benign fasiculations 2021- neurologist dx her w large fiber neuropathy Pain in legs, back, feet, right elbow. Has seen ortho but they will not inject right elbow anymore. Multiple things have been tried including gabapentin, TCA, Cymbalta, flexeril On oxy 5 mg 15 pills in 30 days Does not want more narcotics Would like to try lidoderm patch Assessment & Plan (08/16/2022 10:44 AM EDT): She wishes to taper oxycodone further. Her next prescription will be for 2.5 mg daily as needed Assessment & Plan (05/24/2022 4:28 PM EST): She asked to reduce her monthly amount of oxycodone 5 mg to 28 tabs as she has been doing okay taking up to 1 tab daily. I noted this for her next refill Assessment & Plan (02/04/2022 5:07 PM EDT): At next refill will decrease oxycodone 5 mg dosing to 1.5 tabs daily, 42 tabs monthly Assessment & Plan (09/10/2021 5:21 PM EDT): She is encouraged to further decrease oxycodone. She is going to aim for 5 mg daily. She will update me next month. Assessment & Plan (08/02/2019 1:16 PM EST): Decrease oxycodone total daily dose to 10 mg on 08/10/19 Assessment & Plan (09/14/2018 11:49 AM EDT): currently taking about 15 mg oxycodone. Next month beatriz change rx to 5 mg tabs so she has more flexibility to decrease dosing. Assessment & Plan (07/13/2018 6:45 PM EST): Oxycodone 15 mg Rx modified today to sig: take 1 tab daily as need, pt can take 1/2 tab BID. Increase gabapentin dose. Assessment & Plan (01/03/2018 12:57 PM EDT): At next refill will taper oxycodone 15 mg down from 36 tabs/ month to 30. Use NSAID as needed & marijuana products as needed Assessment & Plan (11/08/2017 2:02 PM EDT): She will continue current dosing of oxycodone 15 mg. We will taper her further after her ankle surgery this fall Assessment & Plan (09/06/2017 12:22 PM EDT): Continue oxycodone 15 mg 1-1.5 tabs daily. Encouraged her to get her med marijuana certificate, this may help use further taper the oxycodone Assessment & Plan (06/21/2017 2:11 PM EST): She feels ready to further decrease oxycodone. She has been receiving 40 tabs monthly. We will decrease to 36 tabs per month so that on some days she can have an additional half tablet as needed Chronic obstructive pulmonary disease 06/21/2017 Overview (06/14/2024): Has been dx with this but not sure when or why. Asthma also in chart. Smoked a little between 2007 and 2017. Albuterol is only inhaler Has never seen pulm We will get PFTs and CXR, exam with distant breath sounds. She has some shortness of breath as well. CT scan 05/2024 shows COPD. Pred and azithromycin for exacerbations. Has used nebs in the past as well. 06/2024 we will start LAMA for better control and she still needs to get PFTs done Assessment & Plan (08/15/2023 3:38 PM EDT): COPD exacerbation versus prolonged viral cough. No concerns for acute pneumonia on assessment, she reports she has had pneumonia previously and this does not feel like it to her. Will give a 5-day burst of prednisone. If symptoms are not improving can consider x-ray. She already has an appointment scheduled with PCP and can follow-up at that visit. Assessment & Plan (08/16/2022 10:43 AM EDT): She uses medical marijuana. I asked her to stop smoking it, instead consume it orally or topically Assessment & Plan (02/04/2022 5:04 PM EDT): Lungs are clear today. While she uses marijuana daily she says she only takes it in edible form. Not smoking cigarettes. Assessment & Plan (09/10/2021 5:18 PM EDT): Asymptomatic. She had relapse with cigarette use but she says she quit 4 months ago. Assessment & Plan (07/31/2020 2:17 PM EST): Mild, but high risk w current COVID infection, Has albuterol if needed. Advised to monitor pulse Ox. She will try to get an oximeter. Call or to ER w any sx worsening Assessment & Plan (04/20/2018 7:55 PM EST): Has current URI but no exacerbation. Supportive measures for URI reviewed Assessment & Plan (09/06/2017 12:20 PM EDT): Stable, encouraged not to smoke HTN (hypertension) 06/21/2017 Overview (10/04/2024): She has been on vasotec for about 30 years and has been on 30 mg for a very long time She got covid 01/31 and her blood pressure is lower and goes very low with taking any vasotec and she has sx. She has been up to 182/96 without meds. 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 Coreg 3.125 BID with lows and highs still, same with pulse. 07/2024 added norvasc 5 mg once per day for some higher values, this is better Assessment & Plan (06/14/2024 12:47 PM EST): Did not take meds this am, will go home and take meds as bp elevated in the office today Assessment & Plan (03/08/2024 2:03 PM EDT): Blood pressure has been good over the last few days, has not needed Norvasc. Assessment & Plan (08/16/2022 10:45 AM EDT): Well-controlled Assessment & Plan (05/24/2022 4:24 PM EST): Stable Assessment & Plan (02/04/2022 5:04 PM EDT): Well-controlled. Reminded her to go for outstanding labs Assessment & Plan (09/10/2021 5:17 PM EDT): Well-controlled, continue current regimen. Assessment & Plan (04/13/2021 10:12 AM EST): Well controlled Assessment & Plan (12/15/2020 2:10 PM EDT): stable Assessment & Plan (09/15/2020 2:33 PM EDT): stable Assessment & Plan (06/12/2020 10:50 AM EST): stable Assessment & Plan (10/02/2019 2:27 PM EDT): Home BPs normal per pt. Continue current regimen Assessment & Plan (08/02/2019 1:18 PM EST): Stable Assessment & Plan (05/22/2019 11:22 AM EST): BP is too low & she is prone to syncope. She will stop the HCTZ. Assessment & Plan (05/08/2019 5:34 PM EST): Has been on vasotec 10 mg for years but her bp has been high 04/2019. She went up to 20 mg on her own and her BP is still high. We will try to add on HCTZ 25 mg 05/2019 and see if this helps. Assessment & Plan (04/24/2019 12:16 PM EST): Continue current regimen Assessment & Plan (04/20/2018 7:55 PM EST): Very high BP today, but she ran out of meds yesterday. Will go home & take meds & monitor BP at home Assessment & Plan (11/08/2017 2:01 PM EDT): A little high by MA reading today, I rechecked and it was within normal range. Continue current regimen Assessment & Plan (09/06/2017 12:19 PM EDT): stable Hypothyroidism 06/21/2017 Overview (06/02/2023): 100 mcg daily Assessment & Plan (05/24/2022 4:25 PM EST): Due for lab work Assessment & Plan (09/10/2021 5:19 PM EDT): Stable Assessment & Plan (04/13/2021 10:12 AM EST): Due for labs Assessment & Plan (07/06/2020 6:00 PM EST): Continue thyroid hormone supplementation as prescribed-stable x 20 years per her report. Assessment & Plan (06/29/2020 7:45 PM EST): Continue thyroid hormone supplementation as prescribed-stable x 20 years per her report. Assessment & Plan (06/12/2020 10:51 AM EST): stable Assessment & Plan (09/11/2019 3:52 PM EDT): Continue current dose of levothyroxine Assessment & Plan (04/20/2018 7:56 PM EST): Stable on current dose levothyroxine Assessment & Plan (09/06/2017 12:20 PM EDT): Labs today Left foot pain 06/21/2017 Overview (12/27/2018): Left foot ankle pain. S/p tendon surgery with Dr Collins 2016. Negative EMG 2017 Assessment & Plan (04/24/2019 12:19 PM EST): Increase gabapentin to 1200 mg daily Assessment & Plan (12/27/2018 5:23 AM EDT): Seeking 2nd opinion at [facility]. Prognosis is guarded. Continue current pain med regimen & refer to PT Assessment & Plan (09/14/2018 11:47 AM EDT): Continue gabapentin Assessment & Plan (07/13/2018 6:48 PM EST): Recent EMG normal. Will increase gabapentin to [address] Collins for FU later this month. Assessment & Plan (04/20/2018 7:58 PM EST): Presentation becoming increasingly complicated. She is being evaluated for radiculopathy. Complex regional pain syndrome is also on the differential. I asked her to restart gabapentin, which she's taken before. Start 100 mg TID w plan to titrate up if tolerated. Continue current dose of oxycodone Assessment & Plan (06/21/2017 2:06 PM EST): Follow-up with Dr. Collins. Discussed appropriate footwear. Lotion for dry skin. Fasciculations of muscle 06/21/2017 Overview (12/20/2023): She has had these for a long time and her clonazepam helps these Assessment & Plan (05/22/2019 11:21 AM EST): She c/o more fasciculations and leg cramps. The fasciculations have always been bilateral. The leg cramps are just on the left. She attributes this to her ankle surgeries. I asked her to FU with her specialist in [place]. Assessment & Plan (11/08/2017 2:01 PM EDT): Is thinking about switching to a local neurologist so that she doesn't have to travel to [place] anymore. She asked for names of neurologists in the area and these were given to her Primary insomnia 06/21/2017 Overview (09/13/2023): She wakes up and cannot get back to sleep Takes klonopin every night, marijuana Her body pain seems to keep her up She tried gabapentin and this did not work TCA - she does not want to do Trazodone did not work Assessment & Plan (09/10/2021 5:20 PM EDT): She wants to start weaning off clonazepam. Instructed to do so slowly. In the meantime she is going to try Luvox for depression, this should also help the insomnia. Follow-up in 4 weeks Assessment & Plan (02/05/2020 10:06 AM EDT): Exacerbated by steroid course. Continue 2 mg clonazepam nightly prn this week, then try to decrease back to 1 mg Assessment & Plan (06/21/2017 2:06 PM EST): I do not recommend that she increase Klonopin. I suggest that she try and get more exercise and start speaking with a therapist about her depression and insomnia Vasovagal syncope 06/21/2017 Assessment & Plan (04/24/2019 12:16 PM EST): Reviewed prodrome w her & measures to take to reduce likelihood of syncope Vitamin B 12 deficiency 06/21/2017 Assessment & Plan (12/14/2020 5:49 PM EDT): Continue vitamin B12 supplementation to keep serum level in optimal range. Assessment & Plan (08/02/2019 1:18 PM EST): Increase oral B12 dose to 2000 mcg daily and get follow-up B12 level checked in 1 month Assessment & Plan (05/22/2019 11:22 AM EST): Her b12 level was wnl or recent labs. Assessment & Plan (04/20/2018 7:58 PM EST): Has been off oral supplements for months but level is WNL Resolved Problems Problem Noted Date Diagnosed Date Resolved Date Walking pneumonia 10/19/2023 12/20/2023 Assessment & Plan (10/19/2023 4:52 PM EDT): I diagnosed Camille with walking pneumonia based on her signs and symptoms. Rhonchi of the right lower lung base. I started her on doxycycline-she has multiple allergies noted on her list today. I advised her to continue use her inhaler which I refilled today at her request. I advised her to obtain a chest x-ray if she is not feeling better in the next week or if her symptoms are getting worse. I gave guidance regarding additional symptomatic management. She will call if there are any other issues or concerns. She understands and agrees. Diarrhea 06/20/2022 11/20/2024 Assessment & Plan (06/20/2022 3:58 PM EST): Virtual Visit Attestation Modality: interactive audio (phone only) Provider Location: home / other Patient Location: home Patient State: [place] E&M Billing based on time ([id number]): Yes Total time spent on date of service (min): 6 Time spent with patient during visit (min): 8 I personally spent the total time as documented on care for this patient on the date of the encounter, of which the time spent with the patient during the encounter has been separately documented. Camille calls this afternoon stating that she has diarrhea-headaches, not feeling well, intermittent fever. She is taking Tylenol and I gave her guidance to continue with [id number] medication such as Tylenol and Imodium. I advised her to stay well-hydrated. I advised her to also test for COVID to rule this out. I informed her to call her office tomorrow if she is not feeling better or to call back if she test positive for COVID at which point I will give her the oral antiviral. She understands and agrees with this plan. Generalized abdominal pain 09/10/2021 0 02/04/2022 Assessment & Plan (09/10/2021 5:25 PM EDT): generalized abdominal pain starting in August. Had 2 ER visits for this with a normal work-up including CT scan. Symptoms are fortunately diminishing. Has an appointment with GI in 1 month Sicca syndrome, unspecified 07/14/2020 08/15/2024 Overview (03/06/2021): IMO 03/06/2021 Assessment & Plan (12/14/2020 6:00 PM EDT): Keep well-hydrated. Avoid spicy and acidic foods. Diligent mouth hygiene. Regular dental checkups. I had a several minutes review with Camille explaining that dry eyes dry mouth have multiple reasons not only Sjogren's syndrome and in many patients with Sjogren's syndrome diagnosis takes time to confirm because disease may affect some of the salivary glands that were not sampled in the biopsy specimen. Unfortunately her immunologic tests are also negative at this time therefore I am not convinced that she has Sjogren's syndrome at this time. I would be in favor of second opinion rheumatology consult either at [facility], [facility] or [facility] in [place] Assessment & Plan (08/21/2020 10:57 AM EDT): Keep well-hydrated. Avoid spicy and acidic foods. Diligent mouth hygiene. Regular dental checkups. I had a several minutes review with Camille explaining that dry eyes dry mouth have multiple reasons not only Sjogren's syndrome and in many patients with Sjogren's syndrome diagnosis takes time to confirm because disease may affect some of the salivary glands that were not sampled in the biopsy specimen. Unfortunately for her her immunologic tests are also negative at this time. Assessment & Plan (07/19/2020 12:36 PM EST): Keep well-hydrated. Avoid spicy and acidic foods. Diligent mouth hygiene. Regular dental checkups. I had a several minutes review with Camille explaining that dry eyes dry mouth have multiple reasons not only Sjogren's syndrome and in many patients with Sjogren's syndrome diagnosis takes time to confirm because disease may affect some of the salivary glands that were not sampled in the biopsy specimen. Unfortunately for her her immunologic tests are also negative at this time. 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 We will recheck. I discussed with her the importance of catching up on all of her vaccinations. She only wants to do 1 shot at a time. She accepted the tetanus booster today. She will go to the pharmacy or follow-up here for PCV 20, Shingrix and COVID booster Assessment & Plan (12/14/2020 7:35 PM EDT): I have reviewed with Camille that low complements may be in the course of systemic rheumatic disease flare versus chronic stage for example since . I do not have prior readings for comparison therefore I am not able to assess it based on one reading alone. It would be helpful to see whether it was ever checked and if no prior readings available recheck it at some point in the future. She was inquiring about possible therapeutic options for patients with Sjogren's syndrome, low complements etc. I explained to her that there is no specific treatment for that disease at this time however it may help her fatigue and achy joints if she takes slow acting disease modifying antirheumatic drug (DMARD) Plaquenil that I have previously provided pamphlet on for review at home. Assessment & Plan (08/21/2020 10:58 AM EDT): I have reviewed with Camille that low complements may be in the course of systemic rheumatic disease flare versus chronic stage for example since . I do not have prior readings for comparison therefore I am not able to assess it based on one reading alone. It would be helpful to see whether it was ever checked and if no prior readings available recheck it at some point in the future. She was inquiring about possible therapeutic options for patients with Sjogren's syndrome, low complements etc. I explained to her that there is no specific treatment for that disease at this time however it may help her fatigue and achy joints if she takes slow acting disease modifying antirheumatic drug (DMARD) Plaquenil that I provided pamphlet on for review at home. Assessment & Plan (07/19/2020 12:40 PM EST): I have reviewed with Camille that low complements may be in the course of systemic rheumatic disease flare versus chronic stage for example since . I do not have prior readings for comparison therefore I am not able to assess it based on one reading alone. It would be helpful to see whether it was ever checked and if no prior readings available recheck it at some point in the future. She was inquiring about possible therapeutic options for patients with Sjogren's syndrome, low complements etc. I explained to her that there is no specific treatment for that disease at this time however it may help her fatigue and achy joints if she takes slow acting disease modifying antirheumatic drug (DMARD) Plaquenil that I provided pamphlet on for review at home. Assessment & Plan (07/06/2020 6:09 PM EST): I have reviewed with Camille that low complements may be in the course of systemic rheumatic disease flare versus chronic stage for example since . I do not have prior readings for comparison therefore I am not able to assess it based on one reading alone. It would be helpful to see whether it was ever checked and if no prior readings available recheck it at some point in the future. Sicca 06/27/2020 04/13/2021 Assessment & Plan (07/03/2020 11:22 AM EST): Keep well-hydrated. Avoid spicy and acidic foods. Diligent mouth hygiene. Regular dental checkups. Mouth dryness 06/27/2020 09/10/2021 Assessment & Plan (06/29/2020 7:46 PM EST): Keep well-hydrated: 6-8 glasses (8 and 6 8 ounces each) of fluids daily. Suck on sugar-free lozenges as needed. Avoid acidic and spicy foods. Diligent mouth hygiene and regular dental checkups at least every 6 months. Dry eyes 06/27/2020 09/10/2021 Assessment & Plan (06/29/2020 7:48 PM EST): Continue artificial tears as directed by potato pancake frier. Diligent ocular hygiene. Avoid direct wind, air draft versus air from time on till eyes. Limit exposure to TV and computer screens. Daily sun protection. Pain of right hand 06/27/2020 Assessment & Plan (07/06/2020 6:01 PM EST): Use warm pack and gentle ROM, stretching and muscle strengthening exercises- examples printed for home use. If not better or worse may need to consider formal OT, splinting and assistive devices. She may benefit from topical cream such as Biofreeze, Voltaren, Thera-Gesic, Aspercreme, capsaicin versus medicated patches such as IcyHot 2-3 times daily and if necessary at bedtime. If above measures unsuccessful consider local steroid injection. Assessment & Plan (06/29/2020 7:59 PM EST): Use warm pack and gentle ROM, stretching and muscle strengthening exercises- examples printed for home use. If not better or worse may need to consider formal OT, splinting and assistive devices. She may benefit from topical cream such as Biofreeze, Voltaren, Thera-Gesic, Aspercreme, capsaicin versus medicated patches such as IcyHot 2-3 times daily and if necessary at bedtime. If above measures unsuccessful consideration for local steroid injection. Right elbow pain 06/27/2020 02/04/2022 Assessment & Plan (07/06/2020 6:02 PM EST): Procedure: After an informed oral consent, under sterile conditions using Ethyl chloride spray for local anesthesia and 1.5 cc 1% Lidocaine as topical anesthetic I have injected 30 mg DepoMedrol and 2 cc 1% Lidocaine into Right medial epicondyle uneventfully. Details of post-procedure care were explained to the patient in the office and given in writing. Gentle stretches and joint protection strategies strongly encouraged. Examples of exercises printed for use at home. Medial elbow pad may provide additional benefit for extended activities. Assessment & Plan (06/29/2020 7:52 PM EST): Rest on a pillow, ice versus warm pack and topical products. Avoid repetitive pulling, pushing, lifting objects on outstretched arms. If symptoms not improving or worsening formal PT and/or local steroid injection. Opiate use 06/27/2020 09/10/2021 Assessment & Plan (12/14/2020 6:01 PM EDT): Take exactly as prescribed, try to limit frequency by employing non-for pharmacologic measures such as topical creams, warm packs, patches, regular relaxation/mediation/positive imagery sessions etc. Build up regular exercise routine up to the goal of 30-45 minutes daily. Monitor for increasing shortness of breath, reduced respiratory drive, increasing constipation Assessment & Plan (07/19/2020 12:36 PM EST): Take exactly as prescribed, try to limit frequency by employing non-for pharmacologic measures such as topical creams, warm packs, patches, regular relaxation/mediation/positive imagery sessions etc. Build up regular exercise routine up to the goal of 30-45 minutes daily. Monitor for increasing shortness of breath, reduced respiratory drive, increasing constipation Assessment & Plan (07/06/2020 6:01 PM EST): Take exactly as prescribed, try to limit frequency by employing non-for pharmacologic measures such as topical creams, warm packs, patches, regular relaxation/mediation/positive imagery sessions etc. Build up regular exercise routine up to the goal of 30-45 minutes daily. Monitor for increasing shortness of breath, reduced respiratory drive, increasing constipation Assessment & Plan (06/29/2020 7:48 PM EST): Take exactly as prescribed, try to limit frequency by employing non-for pharmacologic measures such as topical creams, warm packs, patches, regular relaxation/mediation/positive imagery sessions etc. Build up regular exercise routine up to the goal of 30-45 minutes daily. Monitor for increasing shortness of breath, reduced respiratory drive, increasing constipation Sjogren's syndrome without e xtraglandular involvement 02/20/2020 06/27/2020 Syncope and collapse 11/28/2019 022 Oral lesion 09/11/2019 04/13/2021 Overview (02/05/2020): [facility]. 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 She was advised to follow-up with him. Assessment & Plan (10/02/2019 2:26 PM EDT): Seeing oral surgeon. Differential dx includes Behcets which Dr Gonzalez notes could be an autoimmune cuase of MRI finding Pt has not had vascular sx, genital lesions or uveitis. Assessment & Plan (09/11/2019 3:55 PM EDT): Picture looked like aphthous ulcer but pt states it is now firm. Will refer to oral surgery if doesn't resolve in next week Anemia 08/02/2019 05/24/2022 Assessment & Plan (08/02/2019 1:19 PM EST): She developed this while she was inpatient for pyelonephritis with sepsis. We will recheck her blood count Abnormal CT scan of lung 07/11/201901/2021 Assessment & Plan (07/11/2019 12:44 PM EST): Patient had findings of some small effusions without obvious infiltrate on her CT bases. Had been treated as an outpatient for pneumonia in the last month by her PCP. Assessment dry rales at the bases bilaterally. No significant respiratory symptoms. I do not think this is CHF or acute infection. Will need outpatient follow-up. Sepsis due to urinary tract infection 07/09/2019 08/02/2019 Assessment & Plan (07/12/2019 8:01 AM EST): On admission met septic criteria with leukocytosis and tachypnea. Clinically improving no longer septic Hypokalemia 07/09/2019 09/15/2020 Assessment & Plan (02/05/2020 10:04 AM EDT): Due to recent steroid infusion. She will return to lab for rechec Assessment & Plan (07/12/2019 8:01 AM EST): Resolved. Acute pyelonephritis 07/09/2019 020 Assessment & Plan (07/12/2019 8:03 AM EST): Clinically, she appears to have right-sided pyelonephritis manifesting as pyuria and right CVA tenderness. Continue IV Rocephin pending final cultures, prelim is e coli. CT was done to rule out abscess, also the patient has a history of kidney stones. CT did Not show abscess or mass, no stones. Did confirm pyelo. Continues to spike temperature on Rocephin despite positive sensitivities. Switch to Ancef this morning, 3 times daily dosing for better renal penetration Pt with 4 UTIs last year. Does hygiene (wiping front to back/urinating after sex). Advised to take cranberry extract, use the estrace cream she has but doesn't use. If fails needs to d/w pcp. Paresthesias 05/22/2019 08/15/2024 Overview (08/02/2019): Neurologist Dr. Kadie Pascual at [facility] Assessment & Plan (10/30/2019 1:16 PM EDT): Discussed she may have more symptomatic improvement with longer time and higher dose of Lyrica but she wishes to discontinue it. I gave her tapering instructions. She has a follow-up with her neurologist next month Assessment & Plan (05/22/2019 11:29 AM EST): She is reporting a sudden onset bilateral upper & LEs paresthesias. Subjective weakness. Clumsiness (this is chronic). I have referred her to local neuro. I have ordered MRI of c-spine. We have MRI lumbar from last year. There is bilateral nerve root narrowing, but I don't think this explains the abnormal sensation from the knees down. MS & other neurodegenerative dx are on the differential. Leg cramps 04/24/2019 09/10/2021 Assessment & Plan (12/14/2020 7:34 PM EDT): Proper hydration, well-balanced nutritionally diet-rich in electrolytes, and ultra elements. Gentle stretching and massage on a regular basis. Assessment & Plan (04/24/2019 12:17 PM EST): Advised to increase fluids, stretch, try small amount of tonic water at night Mild intermittent asthma 06/21/201706/2023 Assessment & Plan (09/06/2022 1:18 PM EDT): I asked her to start inhaled steroid. She has had a lot of upper respiratory infections this year and I suspect underlying poor asthma control is contributing. She will use Pulmicort 90 mcg 2 puffs twice daily. Once she is better from his upper respiratory infection she can try decreasing to 1 puff twice daily Assessment & Plan (09/14/2018 11:47 AM EDT): Will have nurses call pharmacy to see which anticholinergic her insurance covers now Depression 06/21/2017 04/13/2021 Assessment & Plan (2020 7:11 PM EDT): Increase venlafaxine to 75 mg. FU 8 weeks. Sooner if problems Assessment & Plan (09/15/2020 2:35 PM EDT): She will try Venlafaxine again for chronic pain & depression. Start 37.5 mg. Update me in 4 weeks Continue wellbutrin Assessment & Plan (06/12/2020 10:53 AM EST): Increase wellbutrin to 300 mg. Continue sertraline FU 3 mos Assessment & Plan (02/05/2020 10:07 AM EDT): Concerned that wellbutrin also contributing to insomnia, Ut will see once side effects of steroid clear out. Assessment & Plan (10/30/2019 1:17 PM EDT): She will continue sertraline 150 mg. She will add back Wellbutrin 75 mg every morning. After 1 month we will have a follow-up and can increase the Wellbutrin to 75 twice daily or 150 mg extended release if her symptoms are inadequately controlled Assessment & Plan (10/02/2019 2:25 PM EDT): She plans to stop wellbutrin. We increased the sertraline to 150 mg. Need to monitor for worsening depression on lyrica. Assessment & Plan (09/11/2019 3:53 PM EDT): She will continue weaning off wellbutrin. Go down to 75 mg qd for a few weeks, then stop. Will increase sertraline if she has more sx of depression or anxiety Assessment & Plan (08/30/2019 1:40 PM EDT): Will taper her off of wellbutrin. Reduce from 300 to 150 mg qd now x 2 weeks. Have telemed FU in 2 weeks. Will leave message w her neurologist about this plan Continue sertraline. Monitor for depression sx Assessment & Plan (04/24/2019 12:16 PM EST): Continue wellbutrin 300 mg, increase sertraline to 100mg Assessment & Plan (04/20/2018 7:55 PM EST): Stable, meds refilled today Assessment & Plan (09/06/2017 12:20 PM EDT): Continue current regimen & exercise. Discussed BHT again, she isn't interested Assessment & Plan (06/21/2017 2:09 PM EST): Increase sertraline to 50 mg. Continue Wellbutrin. Recommend therapy. GERD (gastroesophageal reflux disease) 06/21/2017 08/15/2022 Insomnia 06/21/2017 09/10/2021 Assessment & Plan (04/13/2021 10:17 AM EST): Reminded that early refills will not be given for lost pills. She is due for refill next week. UDS today Shoulder pain 06/21/2017 08/15/2024 Mixed hyperlipidemia 06/21/2017 024 Assessment & Plan (08/16/2022 10:45 AM EDT): Well-controlled Assessment & Plan (05/24/2022 4:25 PM EST): Remains on statin. Due for lab work Assessment & Plan (09/10/2021 5:18 PM EDT): Stable Assessment & Plan (06/12/2020 10:51 AM EST): Continue statin. Lipid panel before next visit Assessment & Plan (11/08/2017 2:01 PM EDT): Continue Lipitor. Recheck lipid panel in March Additional Health Concerns Active Problems Noted Date Diagnosed Date Chronic Condition Self-Management 02/04/2020 Fall/Injury 02/04/2020 Goals Goal Patient Goal Type Associated Problems [...] Pt will schedule with [facility] orthopedic Interventions Care Plan Interventions Intervention Entry Date Outcome Pt will begin walking regularly 5x/wk 10/03/2020 Related Goals and Interventions Goal Associated Intervent ions Understand symptoms and warn ing signs to report to Provider Pt will begin walking regularly 5x/wk
--- OUTSIDE RECORDS SUMMARY | 2025-01-28 14:36 | XMS_ITS | Encounter Summary ---
Author Organization [facility] Address [address] [place] [address] [place] [id number] Phone Care Team Providers Care Nib Adjuster Name Role Phone Roger Frank MD Unavailable [phone] Edilma [place] MD Unavailable Pelon Arellano MD Unavailable Yulissa Vigil RN Unavailable [phone] Pcp, Not Required Unavailable Unavailable Edilma [place] MD Primary Care Provider Edilma [place] MD Unavailable [phone] Encounter Details Date Type Department Care Team (Late st Contact Info) Description 02/09/2024 Procedure Pass [facility], Ct Scan - [address] [address] Social History Tobacco Use Types Packs/Day Years [...] high school, GED, job training, learning the [place] language, technical skills, or developing parenting skills)? [...] Date of Assessment Author No Risk Indicated 02/09/2024 4:20 PM EDT Roxi Santiago, RN * [place] Suicide Severity Rating Scale (Screener/Recent Self-Report) Question Answer Date of Assessment Author 1. Wish to be (Past 1 Month) No 024 4:20 PM EDT Roxi Santiago, RN 2. Non-Specific Active Suici cam Thoughts (Past 1 Month) No 02/09/2024 4:20 PM EDT Alice Santiago, MAX 6. Suicidal Behavior (Lifetime) No 4:20 PM EDT Roxi Santiago, RN documented as of this encounter Plan of Treatment Upcoming Encounters Date Type Department Care Team (Late st Contact Info) Description 02/12/2025 4:30 PM EDT Office Visit [facility] [address] [place] [address] Edilma [place] MD [address] [place] [phone] [email or web address] [...] Symptom management Task/Interventions: Pt will schedule with [facility] orthopedic documented as of this encounter Visit [...] documented as of this encounter Care Teams Nib Adjuster Relationship Specialty Start Date End Date Edilma [place] MD [address] [address] [email or web address] PCP - General Family Medicine 04/01/23 Roger Frank MD [address] [place] [address], [address] [place] [address] [email or web address] Historical LMR Provider 03/26/17 Edilma [place] MD [address] [place] [address] [address] [place] [address] [email or web address] Historical LMR Provider 03/26/17 Pelon Arellano MD [address] [place] [address] [address] [place] [address] [email or web address] Historical LMR Provider 03/26/17 Yulissa Vigil, RN [address] [place] [address] [email or web address] Facial Operator 12/12/19 12/25/24 Pcp, Not Required [address] [place] [id number] 02/09/23 Edilma [place] MD [address] [place] [address] [address] [place] [address] [email or web address] Insurance Assigned Provider 09/10/23 documented as of this encounter Additional Source Comments The information contained in this document represents components of the legal health record. It is not the complete legal health record.[facility]
--- OUTSIDE RECORDS SUMMARY | 2025-01-28 14:36 | XMS_ITS | Encounter Summary ---
Author Organization [facility] Address [address] [place] [address] Phone Care Team Providers Care Supervisor Train Operations Name Role Phone Larry Payne MD Unavailable Roger Frank MD Unavailable Felipe Brooks MD Unavailable [phone] Tr West MD Unavailable [phone] Mannie Pino PA-C Unavailable [phone] Yulissa Purvis DO Unavailable [phone] Unavailable [email or web address] Eloina Ash MD Unavailable Edilma Chase MD Unavailable [phone] Maribell Mendoza MD Unavailable +[phone] Pelon Arellano MD Unavailable Gaye Pate [facility] Primary Care Provider [phone] Luh Ayala MD Unavailable [phone] Yulissa Vigil RN Unavailable [phone] Elizabeth Batista Unavailable Elizabeth Batista Unavailable [phone] Lester, Elizabeth Unavailable [phone] Elizabeth Batista Unavailable [phone] Elizabeth Batista Unavailable [phone] Elizabeth Batista Unavailable [phone] Elizabeth Batista Unavailable [phone] Chan Jacobo MD Unavailable Edilma Chase MD Primary Care Provider Pcp, Not Required Unavailable Unavailable Edilma Chase MD Unavailable Edilma Chase MD Unavailable [phone] Edilma Chase MD Primary Care Provider [phone] Edilma Chase MD Primary Care Provider [phone] Edilma Chase MD Unavailable Elizabeth Batista Unavailable [phone] Encounter Details Date Type Department Care Team (Late st Contact Info) Description 01/29/2019 Ancillary Orders [facility] at [address] [address] Martin Priest MD [address] [place] [phone] [email or web address] Social History Tobacco Use Types Packs/Day Years [...] Description 02/12/2025 4:30 PM EDT Office Visit [facility] [address] [place] [address] Edilma Chase MD [address] [place] [address] 7 [place] [address] [email or web address] documented as of this encounter Visit Diagnoses [...] documented as of this encounter Care Teams Supervisor Train Operations Relationship Specialty Start Date End Date Gaye Pate CNP [address] [place] [address], [address] [place] [address] [email or web address] PCP - General 06/21/17 01/27/23 Edilma Chase MD [address] [place] [address] 7 [place] [address] [email or web address] PCP - General Family Medicine 01/28/23 01/31/23 Edilma Chase MD [address] [place] [address] 7 [place] [address] [email or web address] PCP - General Family Medicine 02/09/23 03/28/23 Edilma Chase MD [address] [facility] [address] [place] [address] [email or web address] PCP - General Family Medicine 04/01/23 Larry Payne MD 50 [facility] 1st Floor [address] [place] [address] Historical LMR Provider 03/26/17 2 Roger Frank MD 22 [facility] [address] [place] [address] [email or web address] Historical LMR Provider 03/26/17 Felipe Brooks MD [address] [place] [address] Historical LMR Provider 03/26/17 Tr West MD [address] [place] [address] [email or web address] Historical LMR Provider 03/26/17 06/13/21 Mannie Pino PA-C [address] [place] [address] [facility], [place] [address] [email or web address] Historical LMR Provider 03/26/17 06/13/21 Yulissa Purvis DO [address] [place] [address] Historical LMR Provider 03/26/17 2 Jessi Rivero, RDDAREN Historical LMR Provider 03/26/17 06/13/21 Eloina Ash MD 4 [facility], [place] [address] Historical LMR Provider 03/26/17 Edilma Chase MD [address] [place] [address] 7 [place] [address] Historical LMR Provider 03/26/17 Maribell Mendoza MD [address] [place] [address] [facility], [place] [address] Historical LMR Provider 03/26/17 06/13/21 Pelon Arellano MD [address] [place], [place] [address] [place] [address] [email or web address] Historical LMR Provider 03/26/17 Luh Ayala MD [address] [place] [address] 7 [place] [address] [email or web address] Insurance Assigned Provider 09/03/17 09/11/22 Yulissa Vigil, RN [address] [place] [address] [email or web address] Design Drafter Chief 12/12/19 12/25/24 Elizabeth Batista [address] [place] [address] [facility] Community Health Worker 02/28/20 04/16/20 Elizabeth Batista [address] [place] [address] [facility] Community Health Worker 07/17/20 02/23/21 Elizabeth Batista [address] [place] [address], [place] [address] [email or web address] Community [email or web address] Worker 07/09/21 07/23/21 Elizabeth Batista [address] [place] [address], [place] [address] [email or web address] Community Health Worker 07/09/21 11/04/21 Elizabeth Batista [address] [place] [address], [place] [address] [email or web address] Community Health Worker 10/29/21 01/31/22 Elizabeth Batista [address] [place] [address], [place] [address] [email or web address] 03/01/22 03/03/22 Elizabeth Batista [address] [place] [address] [email or web address] Community [email or web address] [email or web address] 04/26/22 06/02/22 Chan Jacobo MD [address] [place] [address] 7 [place] [address] [email or web address] Insurance Assigned Provider 09/11/22 09/10/23 Pcp, Not Required [address] [place] [address] 02/09/23 Edilma Chase MD [address] [place] [address] 7 [place] [address] [email or web address] Family Medicine 02/09/23 03/28/23 Edilma Chase MD [address] [place] [address] 7 [place] [address] [email or web address] Family Medicine 02/09/23 03/28/23 Edilma Chase MD [address] [place] [address] 7 [place] [address] [email or web address] Insurance Assigned Provider 09/10/23 Elizabeth Batista [address] [place] [address] [email or web address] Community Health Worker 11/18/23 01/22/24 documented as of this encounter Additional Source Comments The information contained in this document represents components of the legal health record. It is not the complete legal health record.[facility]
--- OUTSIDE RECORDS SUMMARY | 2025-01-28 14:36 | XMS_ITS | Clinical Summary ---
Author Organization [facility] Address [address] [place] [phone] Phone Care Team Providers Care Operations Support Manager Name Role Phone Roger Frank MD Unavailable Edilma Chase MD Unavailable [phone] Pelon Arellano MD Unavailable Pcp, Not Required Unavailable Unavailable Edilma Chase MD Primary Care Provider Edilma Chase MD Unavailable [phone] Allergies Active Allergy Reactions Criticality Noted Date Comments Adhesive Rash Low 12/05/2020 Hydromorphone Itching,Rash Low 08/22/2021 Erythromycin 06/21/2017 Latex, Natural Rubber 06/21/2017 Nitrofurantoin Monohyd/M-Cryst 06/21 Morphine 06/21/2017 Sulfa (Sulfonamide Antibiotics) 06/06 Medications multivitamin per tablet as directed Active ascorbic acid, vitamin C, (VITAMIN C) 1000 MG tablet 1 tablet Active cyanocobalamin, vitamin B-12, 1000 MCG tablet Take 1,000 mcg by mouth daily. Active cholecalciferol (VITAMIN D3) 25 MCG (1,000 unit) tablet Take 1,000 Units by mouth daily. Active trimethoprim (TRIMPEX) 100 mg tabletIndication s:Recurrent UTI TAKE 1 TABLET BY MOUTH AFTER INTERCOURSE 90 tablet 1 02/02/20 23 Active MAGNESIUM ORAL Take by mouth. Active TURMERIC ORAL Take 1 capsule by mouth daily. Active carvedilol (COREG) 3.125 MG tabletIndication s:Primary hypertension Take 1 tablet (3.125 mg total) by mouth 2 (two) times a day with meals. 180 tablet 3 04/06/20 24 Active estradioL (ESTRACE) 0.01 % (0.1 mg/gram) vaginal creamIndications :Dyspareunia, female APPLY 2 GRAMS NIGHTLY FOR 2 WEEKS, THEN DECREASE TO 1 GRAM 3 TIMES WEEKLY 43 g 05/04/20 24 Active folic acid (FOLVITE) 400 MCG tabletIndication s:Anemia, unspecified type Take 1 tablet (400 mcg total) by mouth daily. 84 tablet 3 05/22/20 24 Active atorvastatin (LIPITOR) 20 MG tabletIndication s:Hyperlipidemia Take 1 tablet by mouth once daily 90 tablet 3 06/15/19 25 Active levothyroxine (SYNTHROID, LEVOTHROID) 100 MCG tabletIndication s:HTN (hypertension) Take 1 tablet (100 mcg total) by mouth every morning. 90 tablet 3 07/20/19 25 Active INCRUSE ELLIPTA 62.5 mcg/actuation inhalationIndica tions:Chronic obstructive pulmonary disease, unspecified COPD type INHALE 1 PUFF INTO LUNGS ONCE DAILY 90 each 1 10/10/19 25 Active ferrous gluconate 324 mg (37.5 mg elemental) TabIndications:A nemia, unspecified type Take 1 tablet (324 mg total) by mouth daily. 90 tablet 3 11/27/19 25 Active OXcarbazepine (TRILEPTAL) 150 MG IMMEDIATE release tablet Take 1 tablet (150 mg total) by mouth 2 (two) times a day. 180 tablet 2 11/30/19 25 026 Active busPIRone (BUSPAR) 5 MG tabletIndication s:CALI (generalized anxiety disorder) Take 1 tablet (5 mg total) by mouth 2 (two) times a day. 180 tablet 1 12/22/19 25 Active amLODIPine (NORVASC) 5 MG tabletIndication s:Primary hypertension Take 1 tablet (5 mg total) by mouth daily. 90 tablet 12/22/19 25 Active albuterol 90 mcg/actuation inhalerIndicatio ns:Asthma Inhale 2 puffs into the lungs every 4 (four) hours as needed for wheezing. 18 g 2 12/22/19 25 Active clonazePAM (KLONOPIN) 1 MG tabletIndication s:Insomnia TAKE 1 & 1/2 (ONE & ONE-HALF) TABLETS BY MOUTH AT BEDTIME NEEDED 42 tablet 2 01/27/20 25 Active ciprofloxacin HCl (CIPRO) 500 MG tablet Take 1 tablet (500 mg total) by mouth 2 (two) times a day for 7 days. 14 tablet 01/24/20 25 025 Active clonazePAM (KLONOPIN) 1 MG tabletIndication s:Insomnia TAKE 1 & 1/2 (ONE & ONE-HALF) TABLETS BY MOUTH AT BEDTIME NEEDED 42 tablet 2 12/28/19 25 025 Discontin ued(Reord er) Active Problems Problem Noted Date Diagnosed Date [...] Asthma 10/19/2023 Overview (05/11/2024): I would recommend RSV for her Assessment & Plan (10/19/2023 4:52 [...] fat atrophy and frequent ecchymosis Seeing dr Tang now at [facility] Does not want to be on oxycodone [...] has had several steroid injections with Dr. Ferraro. Some of these have helped, some have not. Recently she reports that her symptoms are tolerable and she does not plan to pursue surgery Assessment & Plan (09/10/2021 5:19 PM EDT): Still following with Dr. Ferraro Assessment & Plan (04/13/2021 10:15 AM EST): [...] [address] Hall at [facility] neuro. Initially thought to have MS, then Sjogrens w/ neurologic manifestations. Ultimately, given her further negative immunologic work up it was felt at that time that is was not consistent with a diagnosis of Sjogren's syndrome. She was sent for 2nd opinion to Dr Tru Carrasco [facility] Division of Immunologic, Inflammatory, and Infectious Neurological Disorders. There she was dx with length dependent large fiber neuropathy. He felt that her MRI findings were c/w microvascular disease. She would like to see neuro at [facility] but saw them once and they did not schedule follow up with her. Seeing someone new at [facility] 11/2024. Can have pain with this. Gabapentin did not help at at all. Someone else prescribed trileptal but she is hesitant to take this I will make a referral to [facility]ro pain management for discussion or RFA Assessment [...] winter. She is going to switch to [facility] neuro but does have an appt set up with Dr Hall in June. Assessment & Plan (12/15/2020 2:13 PM EDT): Recommend she arrange home health aid while her partner is away Assessment & Plan (09/15/2020 2:34 PM EDT): She will see if she can get EMG locally. She has had them done at [facility] in past Assessment & Plan (06/12/2020 10:53 [...] Brain 07/2019 suggestive of MS per radiologist [facility] Neuro, Dr Hall, diagnosed pt w Sjogren's disease initially but w/u was negative. Sent to MS clinic at [facility] where they said her [...] Plan (08/30/2019 1:43 PM EDT): Dr Haas, [facility] neuro. Pt hasn't started tx yet. Planning [...] Ibuprofen Recurrent UTI 07/13/2018 Overview (08/02/2019): Uro Nurse Liaison: Dr Jessie Pond Taking trimethoprim post coitally. [...] vit c & estrace topical. Referred to [facility] arthritis 01/03/2018 Overview (01/12/2024): OA hands. She was seeing dr ferraro and she does not want to go back. Seeing Dr tang in [place] as well. Does not want to see pianta. She will try splints and topicals, ice - this is not working She says that the night is the worst and she is not sleeping well. She will go back to see Dr Tang. Assessment & Plan (01/03/2018 12:55 PM EDT): Ibuprofen & ice recommended. Apply heat in AM for stiffness. Can try compressive sleeve or wrap for recent injury Tarsal tunnel syndrome of left side 09/06/2017 Assessment & Plan (09/06/2017 12:20 PM EDT): Plans surgery w Dr Rivas 03/2018 Acquired cavus deformity of left foot 06/21/2017 Overview (06/21/2017): Had surgery with Dr. Rivas 04/20/17 Assessment & Plan (06/21/2017 2:02 PM EST): Follow-up with Dr. Rivas. Discuss orthotics. Chronic pain syndrome 06/21/2017 Overview [...] ankle pain. S/p tendon surgery with Dr Rivas 2016. Negative EMG 2017 Assessment & Plan (04/24/2019 12:19 PM EST): Increase gabapentin to 1200 mg daily Assessment & Plan (12/27/2018 5:23 AM EDT): Seeking 2nd opinion at [facility]. Prognosis is guarded. Continue current pain med regimen & refer to PT Assessment & Plan (09/14/2018 11:47 AM EDT): Continue gabapentin Assessment & Plan (07/13/2018 6:48 PM EST): Recent EMG normal. Will increase gabapentin to [address] Rivas for FU later this month. Assessment & [...] (06/21/2017 2:06 PM EST): Follow-up with Dr. Rivas. Discussed appropriate footwear. Lotion for dry skin. [...] her to FU with her specialist in [place]. Assessment & Plan (11/08/2017 2:01 PM EDT): Is thinking about switching to a local neurologist so that she doesn't have to travel to [place] anymore. She asked for names of neurologists [...] State: [place] E&M Billing based on time ([id number]): Yes Total time spent on date of [...] I gave her guidance to continue with [id number] medication such as Tylenol and Imodium. I [...] of second opinion rheumatology consult either at [facility], [facility] or [facility] in [place] Assessment & Plan (08/21/2020 10:57 AM EDT): [...] EST): Continue artificial tears as directed by director records management. Diligent ocular hygiene. Avoid direct wind, air [...] 022 Oral lesion 09/11/2019 04/13/2021 Overview (02/05/2020): [facility] oral surgery. Dx Epulis Fissuratum- benign fibrous [...] Overview (08/02/2019): Neurologist Dr. Kadie Pascual at [facility] Assessment & Plan (10/30/2019 1:16 PM EDT): [...] Assessment & Plan (04/20/2018 7:55 PM EST): Jamal, meds refilled today Assessment & Plan (09/06/2017 [...] Continue Lipitor. Recheck lipid panel in March Encounters Date Type Department Care Team Description 01/23/2025 1:20 PM EDT Office Visit [facility] at [address] [address] Sherly Contreras, Lucretia Rodrigues NP Dysuria (Primary Dx) 01/14/[address] [address] Monae Antoine MA Medication Refill 12/26/2024 Patient Outreach [facility] [address] [place] [address] Amanda Huang, RN Administration (iCMP Discharge ) 12/26/2024 Patient Outreach [facility] [address] [place] [address] Yulissa Vigil, MAX Program Discharge (iCMP) 12/21/2024 1:00 PM EDT Telemedicine - audio only [address] [address] Edilma Chaes MD Chronic obstructive pulmonary disease, unspecified COPD type (Primary Dx); Moderate episode of recurrent major depressive disorder; Neuropathy; CALI (generalized anxiety disorder); Primary hypertension; Asthma 12/18/[address] [address] Monae Antoine [place] Medication Refill 11/29/2024 Orders Only [facility] [address] [address] Yvonne Alvarado MD, PhD Chronic pain syndrome (Primary Dx); Encounter for medication monitoring 11/23/2024 1:00 PM EDT Office Visit [facility] Neuromuscular [address] [place] [address] Yvonne Alvarado MD, PhD Acquired hypothyroidism (Primary Dx); Neuropathy 11/20/2024 4:45 PM EDT Office Visit [facility] [address] [place] [address] Edilma Chase MD Primary hypertension (Primary Dx); Neuropathy; Encounter for screening mammogram for malignant neoplasm of breast; Screening for osteoporosis; Asthma; CALI (generalized anxiety disorder); Chronic obstructive pulmonary disease, unspecified COPD type; Moderate episode of recurrent major depressive disorder; Medial epicondylitis of right elbow; Primary insomnia; Atrophic vaginitis 11/13/2024 Telephone [facility] [address] [place] [address] Edilma Chase MD Reschedule 11/02/2024 Patient Outreach [facility] [address] [place] [address] Yulissa Vigil, RN Care Coordination (iCMP) from Last 3 Months Immunizations Immunization Administration Dates Next Due COVID-19 (Pre-03/28) Teddy Vaccine, rS-Ad26, PF 09/13/2020 INFLUENZA, SPLIT VIRUS, TRIV ALENT W/ PRESERVATIVE IM 05/16/2012,02/16/2011 Influenza Quadrivalent Prese rvative Free IM 04/13/2021,02/27/2020,04/05/2018,04/06,05/13/2016 Influenza Quadrivalent w/ Pr eservative IM 03/17/2015 Influenza Recombinant Rebecca valent Preservative Free IM 02/18/2022,04/24/2019,03/29/2018 Influenza trivalent preserva tive free intradermal 03/13/2014 PPD Test 12/23/2014 Pneumococcal conjugate PCV20 08/16/2022 Pneumococcal polysaccharide PPSV23 10/02/2018, Td (adult),2 Lf Tetanus Toxo id, PF, Adsorbed 05/24/2022 Tdap 11/09/2008 Family History Medical History Relation Comments Heart disease Father Parkinson's disease Mother Relation Status Comments Father Mother Social History Tobacco Use Types Packs/Day Years Used Date Smoking Tobacco: Former Cigarettes 0.3 10 0 06/06/2007 - 06/06/2017 Smokeless Tobacco: Never Tobacco Cessation:Counseling Given: Not Answered Alcohol Use Standard Drinks/Week Comments Not Currently [...] high school, GED, job training, learning the Occitan language, technical skills, or developing parenting skills)? [...] file Not on file Not on file Last Filed Vital Signs Vital Sign Reading Time Taken Comments Blood Pressure 134/84 01/23/2025 1:24 PM EDT Pulse 63 01/23/2025 1:24 PM EDT Temperature 36 C (96.8 F) 01/23/2025 1:24 PM EDT Respiratory Rate 18 01/23/2025 1:24 PM EDT Oxygen Saturation 96% 01/23/2025 1:2 4 PM EDT Inhaled Oxygen Concentration - - Weight 56.9 kg (125 lb 6.4 oz) 11/23/2024 1:01 PM EDT weight with shoes/clothes on Height 162.6 cm (5' 4 ) 11/23/2024 1:01 PM EDT Body Mass Index 21.52 11/23/2024 1:01 PM EDT Plan of Treatment Upcoming Encounters Date Type Department Care Team (Late st Contact Info) Description 02/12/2025 4:30 PM EDT Office Visit [facility] [address] [place] [address] Edilma Chase MD [address] [place] [address], [address] [place] [address] [email or web address] Health Maintenance Due Date Last Done Comments COLOGUARD 10/12/2004 COLONOSCOPY 10/12/2004 FOBT 10/12/2004 SIGMOIDOSCOPY 10/12/2004 VIRTUAL COLONOSCOPY 10/12/2004 ZOSTER VACCINES (1 of 2) 10/12/2009 RSV VACCINE (1 - Risk 60-74 years 1-dose series) 2019 COVID-19 VACCINE ( season) 2024 05/23/2021, 09/13/2020 OSTEOPOROSIS SCREENING INITIAL (ONE-TIME) 10/12/2024 TSH LEVEL 05/15/2025 05/15/2024, 08/05, 08/18/2023, Additional history exists BLOOD PRESSURE 07/26/2025 01/23/2025 COLORECTAL CANCER SCREENING 09/21/2025 FIT TEST 09/21/2025 09/21/2024 DEPRESSION SCREENING 11/23/2025 11/23/2024 MAMMOGRAM 04/23/2026 04/23/2024, 03/07, 05/13/2020, Additional history exists LIPID PANEL 08/17/2028 08/18/2023, 05/06, 05/24/2022, Additional history exists PAP SMEAR 08/22/2028 08/23/2023, 12/13/2013 SMOKING STATUS SCREENING (Every 5 Years) 11/20/2029 11/20/2024 Adult Td,Tdap Booster 05/24/2032 05/24/2022, 009 PNEUMOCOCCAL VACCINES (50+ years) Completed 08/16/2022, 10/02/2018, 02/23/2011 HEPATITIS A VACCINES Aged Out No long er eligible based on patient's age to complete this topic HIB VACCINES Aged Out No longer eligi ble based on patient's age to complete this topic MENINGOCOCCAL VACCINES (ACWY) Aged Out No longer eligible based on patient's age to complete this topic MENINGOCOCCAL VACCINES (B) Aged Out N o longer eligible based on patient's age to complete this topic Goals Goal Patient Goal Type Associated Problems Recent Progress Patient-Stated? Author Adhere to treatment plan Care Plan Chronic Condition Self-Management No Yulissa iVgil, RN Understand symptoms and warning signs to report to Provider Care Plan Fall/Injury No Yulissa Vigil, RN Maximize understanding of chronic condition Care Plan Chronic Condition Self-Management Yulissa Baldwin, RN Note: Patient Agrees with goal priority: Yes Patient Self-Management activities for this goal: Health condition self-management activities: Symptom management Task/Interventions: Pt will schedule with [facility] orthopedic Medical Devices Not on file Procedures Procedure Name Priority Date/Time Associated Diagnosis Comments URINE CULTURE Routine 01/23/2025 1:45 PM EDT Dysuria POCT URINE DIPSTICK Routine 01/23/2025 1 :22 PM EDT HC BLOOD OCCULT FECAL HGB DETER IA QUAL FECES 1-3 Routine 09/21/2024 12:18 PM EDT Anemia, unspecified type TSH Routine 05/15/2024 8:49 AM EST Acquired hypothyroidism BI MAMMOGRAM SCREENING WITH TOMOSYNTHESIS WITH CAD (BILATERAL) Routine 04/23/2024 10:16 AM EST Breast screening PAP TEST Routine 08/23/2023 12:00 AM EDT LIPID PANEL Routine 08/18/2023 4:16 PM EDT Mixed hyperlipidemia Routine general medical examination at a health care facility from Last 3 Months or Most Recently Relevant to Health Maintenance Results * (ABNORMAL) Urine Culture (01/23/2025 1:45 PM EDT) Special Requests None 01/23/2025 1:45 PM EDT [facility] Urine Culture >100,000 colony forming units per mL MIXED ARAM (3 OR MORE COLONY TYPES) Culture indicates contamination . Please resubmit if necessary.(A) 01/25/2025 9:07 AM EDT [facility] Urine (Urine) 01/23/2025 1:4 5 PM EDT 01/23/2025 5:01 PM EDT Comment:URINE us Lucretia Dodson NP MICROBIOLOGY - GENERAL ORD ERABLES Final Result [facility] [address] [place] [address] * POCT Urine Dipstick (Automated) (01/23/2025 1:22 PM EDT) COLOR Yellow [facility] TURBIDITY Clear [facility] GLUCOSE, POCT Negative Negative [facility] KETONE, POCT Negative Negative [facility] OCCULT BLOOD, POCT Negative Negative [facility] SPECIFIC GRAVITY, POCT 1.010 1.001 - 1.030 [facility] [place] ALBUMIN, POCT Negative Negative [facility] Bili Negative Negative [facility] Urobilinogen 0.2 <1.0 [facility] NITRITE, POCT Negative Negative [facility] PH, POCT 6.5 5.0 - 8.0 [facility] [place] WBC SCREEN, POCT Negative Negative [employer] RECEPTION[facility] [place] 01/23/2025 1:22 PM EDT 01/23/2025 1:25 PM EDT us Sherly Contreras PA-C POINT OF CARE TEST O RDERABLES Final Result [facility] [address] [address], [facility] [phone] * Fecal immunochemical test x1 (FIT) (09/21/2024 12:18 PM EDT) Immuno Fecal Occult Negative Negative [facility] Stool (Stool) 09/21/2024 12: 18 PM EDT 09/21/2024 12:20 PM EDT us Edilma Chase MD BODY FLUIDS AND STOOLS ORDER JESSICA Final Result [facility] [address] [place] [address] * TSH (05/15/2024 8:49 AM EST) TSH 3.38 0.27 - 4.20 uIU/mL [facility] Blood 05/15/2024 8:49 AM EST 05/15/2024 8:53 AM EST us Edilma Chase MD LAB BLOOD ORDERABLES Final R esult [address] [address] * BI MAMMOGRAM SCREENING WITH TOMOSYNTHESIS WITH [...] Chase MD IMG MG EXAMS Final Result * Pap Test (08/23/2023 12:00 AM EDT) 08/23/2023 08/24/2023 9:0 6 AM EDT Narrative SEE NARRATIVE - 08/29/2023 3:37 PM EDT [address] [address] [address] Engineering Technician: Sherine Hoff MD [id number] PROGRAMMER ANALYST Cytology Report FINAL DIAGNOSIS A. PAP SMEAR (SUREPATH) CE: SPECIMEN ADEQUACY: Satisfactory for evaluation; transformation zone present. INTERPRETATION: NEGATIVE FOR INTRAEPITHELIAL LESION OR MALIGNANCY. Electronically Signed Out By: JAYY Wick(ASCP) The Pap test is a screening test primarily for squamous cancers and precursors and has associated false-negative and false-positive results. New technologies such as liquid-based preparations may decrease but will not eliminate all false-negative results. Regular sampling and follow-up of unexplained clinical signs and symptoms are recommended to minimize false negative results. PROCEDURES/ADDENDA HPV Testing (Requested) Ordered Date: 08/24/2023 A. PAP SMEAR (SUREPATH) CE: Human Papilloma Virus Test NEGATIVE for high-risk Human Papilloma Virus types 16, 18, 45 and the Other high risk probe set (Includes 31, 33, 35, 39, 51, 52, 56, 58, 59, 66, 68) Note: Testing performed by [employer] Onclarity HR-HPV analysis. Clinical correlation is advised. This HPV test was performed at [facility], [address] [place] [address]. This test has been FDA approved for both SurePath and ThinPrep cervical cytology specimens. The accuracy and precision of this test for all other specimen sources has been verified in the Cytopathology Laboratory of the [facility] and has not been cleared or approved by the U.S. Food and Drug Administration. Clinical correlation is advised. CLINICAL HISTORY Date of Last Menstrual Period: Not Provided Menstrual History: Post Menopausal Other Clinical Conditions: Screening Pap SPECIMEN SOURCE A: PAP SMEAR (SUREPATH) CE Patient Name: CAMILLE LOPEZ : 1960 (Age: 62) Sex: F Institution: [facility] Location: [facility] Date of Collection: 08/23/2023 Date of Reported: 08/29/2023 15:37 Results to: Edilma Chase us Edilma Chase MD CYTOLOGY ORDERABLES Final Re sult SEE NARRATIVE * Lipid panel (08/18/2023 4:16 PM EDT) HDL 49 mg/dL [facility] Comment: Interpretation <40 mg/dL: Low HDL cholesterol (major risk factor for CHD) Greater than or equal to 60 mg/dL: High HDL cholesterol ( negative risk factor for CHD) HDL - cholesterol is affected by a number of factors, e.g. smoking, excerise, hormones, sex and age. CHOLESTEROL 160 0 - 240 mg/dL [facility] TRIGLYCERIDES 92 30 - 160 mg/dL [facility] LDL 93 50 - 129 mg/dL [facility] Comment: LDL levels in terms of risk for coronary heart disease: <100 mg/dL: Optimal 100-129 mg/dL: Near or above optimal 130-159 mg/dL: Borderline high 160-189 mg/dL: High >190 mg/dL: Very High CARDIAC RISK RATIO 3.3 3.3 - 4.4 C [facility] Blood 08/18/2023 4:16 PM EDT 08/18/2023 4:24 PM EDT us Edilma Chase MD LAB BLOOD ORDERABLES Final R esult Performing Organization Address City[facility] Co de Phone Number [address] [address] from Last 3 Months or Most Recently Relevant to Health Maintenance Additional Health Concerns Active Problems Noted Date Diagnosed Date Chronic Condition Self-Management 02/04/2020 Fall/Injury 02/04/[address] [place] [address] MEDICARE REPLACEMENT MEDICARE REPLACEMENT MEDICARE REPLACEMENT MEDICARE REPLACEMENT [address] [place] [address] MEDICARE REPLACEMENT MEDICARE REPLACEMENT [employer] [address] [place] [address] Advance Directives For more information, please contact: [phone] (9AM - 5PM [facility], Tuesday-Tuesday) * Full Code (Confirmed) (Latest Code Status on File) Date Activated Date Inactivated Comments 07/09/2019 10:42 PM 07/13/2019 1:23 PM Question Answer Comments Code Status Confirmed With: Patient Care Teams Operations Support Manager Relationship Specialty Start Date End Date Edilma Chase MD [address] [place] [id number] [email or web address] PCP - General Family Medicine 04/01/23 Roger Frank MD [address] [place] [address], [address] [address] [email or web address] Historical LMR Provider 03/26/17 Edilma Chase MD [address] [place] [phone] [email or web address] Historical LMR Provider 03/26/17 Pelon Arellano MD [address] [place] [address] [address] [place] [address] [email or web address] Historical LMR Provider 03/26/17 Pcp, Not Required [address] [place] [id number] 02/09/23 Edilma Chase MD [address] [place] [address], [address] [place] [address] [email or web address] Insurance Assigned Provider 09/10/23 Additional Source Comments The information contained in this document represents components of the legal health record. It is not the complete legal health record.[facility]
--- OUTSIDE RECORDS SUMMARY | 2025-01-28 14:36 | XMS_ITS | Encounter Summary ---
Author Organization [facility] Address [address] [place] [address] Phone Care Team Providers Care Senior Financial Analyst Name Role Phone Larry Payne MD Unavailable [phone] Roger Frank MD Unavailable Felipe Brooks MD Unavailable [phone] Tr West MD Unavailable [phone] Mannie Pino PA-C Unavailable +[phone] Yulissa Purvis DO Unavailable [phone] Unavailable [email or web address] Eloina Ash MD Unavailable Edilma Chase MD Unavailable +[phone] Maribell Mendoza MD Unavailable +[phone] Pelon Arellano MD Unavailable Gaye Pate [facility] Primary Care Provider [phone] Luh Ayala MD Unavailable +[phone] Yulissa Vigil RN Unavailable [phone] Elizabeth Batista Unavailable [phone] Elizabeth Batista Unavailable [phone] Elizabeth Batista Unavailable [phone] Rama Batistas Unavailable +[phone] Rama Batistas Unavailable [phone] Rama Batistas Unavailable [phone] Lester Elizabeth Unavailable [phone] Chan Jacobo MD Unavailable Edilma Chase MD Primary Care Provider [phone] Pcp, Not Required Unavailable Unavailable Edilma Chase MD Unavailable [phone] Edilma Chase MD Unavailable [phone] Edilma Chase MD Primary Care Provider [phone] Edilma Chase MD Primary Care Provider [phone] Edilma Chase MD Unavailable +[phone] Elizabeth Batista Unavailable [phone] Encounter Details Date Type Department Care Team (Late st Contact Info) Description 02/08/2019 Procedure Pass [address] [place] [address] Social History Tobacco Use Types Packs/Day Years [...] - - Weight 57.2 kg (126 lb) 02/11/2019 10:28 AM EDT Height 162.6 cm (5' 4 ) 02/11/2019 10:28 AM EDT Body Mass Index 21.63 02/11/2019 10:28 AM EDT documented in this encounter Plan of Treatment Upcoming Encounters Date Type Department Care Team (Late st Contact Info) Description 02/12/2025 4:30 PM EDT Office Visit [facility] [address] [place] [address] Edilma Chase MD [address] [facility] [address] [place] [address] [email or web address] documented as of this encounter Visit Diagnoses [...] as of this encounter Care Teams Senior Financial Analyst Relationship Specialty Start Date End Date Gaye Pate CNP [address] [facility], 2nd [place] [address] [email or web address] PCP - General 06/21/17 01/27/23 Edilma Chase MD [address] [place] [address] [email or web address] PCP - General Family Medicine 01/28/23 01/31/23 Edilma Chase MD [address] [place] [address] [email or web address] PCP - General Family Medicine 02/09/23 03/28/23 Edilma Chase MD [address] [place] [address] 7 [place] [address] [email or web address] PCP - General Family Medicine 04/01/23 Larry Payne MD [address] [place] [address] [address] [address] Historical LMR Provider 03/26/17 2 Roger Frank MD [address] [place] [address] [address] [place] [address] [email or web address] Historical LMR Provider 03/26/17 Felipe Brooks MD [address] [place] [address] Historical LMR Provider 03/26/17 Tr West MD [address] [place] [address] [email or web address] Historical LMR Provider 03/26/17 06/13/21 Mannie Pino PA-C [address] [place] [address] Orthopedics & Sports Medicine, [place] [address] [email or web address] Historical LMR Provider 03/26/17 06/13/21 Yulissa Purvis DO [address] [place] [address] Historical LMR Provider 03/26/17 2 Jessi Rivero, RDCS Historical LMR Provider 03/26/17 06/13/21 Eliona Ash MD [address] [place] [address] Orthopedics & Sports [facility], [place] [address] Historical LMR Provider 03/26/17 Edilma Chase MD [address] [place] [address] 7 [place] [address] [email or web address] Historical LMR Provider 03/26/17 Maribell Mendoza MD [address] [place] [address] Orthopedics Sports [facility], [place], [place] [phone] Historical LMR Provider 03/26/17 06/13/21 Pelon Arellano MD [address] [place], [place] [address] [place] [id number] [email or web address] Historical LMR Provider 03/26/17 Luh Ayala MD [address] [place] [address] 7 [place], [place] [phone] [email or web address] Insurance Assigned Provider 09/03/17 09/11/22 Yulissa Vigil, RN [address] [place] [address] [id number] [employer] 12/12/19 12/25/24 Elizabeth Batista [address] [place], [place] [phone] [facility] Community Health Worker 02/28/20 04/16/20 Elizabeth Batista [address] [place] [address], [place] [address] [email or web address] Health Worker 07/17/20 02/23/21 Elizabeth Batista [address] [place] [address], [place] [address] [email or web address] Health Worker 07/09/21 07/23/21 Elizabeth Batista [address] [place] [address], [place] [address] [email or web address] Health Worker 07/09/21 11/04/21 Elizabeth Batista [address] [place] [address], [place] [address] [email or web address] Health Worker 10/29/21 01/31/22 Elizabeth Batista [address] [place] [address], [place] [address] [email or web address] 03/01/22 03/03/22 Elizabeth Batista [address] [place] [address], [place] [address] [email or web address] Health Worker 04/26/22 06/02/22 Chan Jacobo MD [address] [place] [address] 7 [place] [address] [email or web address] Insurance Assigned Provider 09/11/22 09/10/23 Pcp, Not Required [address] [place] [address] 02/09/23 Edilma Chase MD [address] [place] [address] 7 [place] [address] [email or web address] Family Medicine 02/09/23 03/28/23 Edilma Chase MD [address] [place] [address] 7 [place] [address] [email or web address] Family Medicine 02/09/23 03/28/23 Edilma Chase MD [address] [place] [address], [address] [place] [address] [email or web address] Insurance Assigned Provider 09/10/23 Elizabeth Batista [address] [place] [address] [email or web address] 11/18/23 01/22/24 documented as of this encounter Additional Source Comments The information contained in this document represents components of the legal health record. It is not the complete legal health record.[facility]
--- OUTSIDE RECORDS SUMMARY | 2025-01-28 14:36 | XMS_ITS | Encounter Summary ---
Author Organization [facility] Address [address] [place] [address] Phone Care Team Providers Care Relief Pilot Name Role Phone Larry Payne MD Unavailable Roger Frank MD Unavailable Felipe Brooks MD Unavailable [phone] Tr West MD Unavailable [phone] Mannie Pino PA-C Unavailable +[phone] Yulissa Purvis DO Unavailable [phone] Unavailable [email or web address] Eloina Ash MD Unavailable Edilma Chase MD Unavailable [phone] Maribell Mendoza MD Unavailable [phone] Pelon Arellano MD Unavailable Gaye Pate [facility] Primary Care Provider [phone] Luh Ayala MD Unavailable [phone] Yulissa Vigil RN Unavailable [phone] Elizabeth Batista Unavailable [phone] Elizabeth Batista Unavailable [phone] Lester, Elizabeth Unavailable [phone] Elizabeth Batista Unavailable [phone] Elizabeth Batista Unavailable [phone] Elizabeth Batista Unavailable [phone] Elizabeth Batista Unavailable Chan Jacobo MD Unavailable Edilma Chase MD Primary Care Provider [phone] Pcp, Not Required Unavailable Unavailable Edilma Chase MD Unavailable [phone] Edilma Chase MD Unavailable [phone] Edilma Chase MD Primary Care Provider [phone] Edilma Chase MD Primary Care Provider [phone] Edilma Chase MD Unavailable Elizabeth Batista Unavailable [phone] Encounter Details Date Type Department Care Team (Late st Contact Info) Description 08/10/2018 Ancillary Orders [facility], X-Ray - [address] [place] [address] Herlinda Kraus, PACamiloC [address] [facility], [address] [place] [address] [email or web address] Pain Social History Tobacco Use Types [...] Description 02/12/2025 4:30 PM EDT Office Visit [facility] Medicine [address] [place] [address] Edilma Chase MD [address] [place] [address] 7 [place] [address] [email or web address] documented as of this encounter Visit Diagnoses Diagnosis Pain Generalized [...] documented as of this encounter Care Teams Relief Pilot Relationship Specialty Start Date End Date Gaye Pate CNP [address] [place] [address], 2nd [place] [address] [email or web address] PCP - General 06/21/17 01/27/23 Edilma Chase MD [address] [place] [address] 7 [place] [address] [email or web address] PCP - General Family Medicine 01/28/23 01/31/23 Edilma Chase MD [address] [place] [address] 7 [place] [address] [email or web address] PCP - General Family Medicine 02/09/23 03/28/23 Edilma Chase MD [address] [place] [address] [address] [place] [address] [email or web address] PCP - General Family Medicine 04/01/23 Larry Payne MD 50 [facility] 1st Floor -[address] [place] [address] Historical LMR Provider 03/26/17 2 Roger Frank MD [address] [place] [address] 301 [place] [address] [email or web address] Historical LMR Provider 03/26/17 Felipe Brooks MD [address] [place] [address] Historical LMR Provider 03/26/17 Tr West MD [address] [place] [address] [email or web address] Historical LMR Provider 03/26/17 06/13/21 Mannie Pino PA-C [address] [place] [address] Orthopedics & Sports Medicine, [facility] [place] [address] Historical LMR Provider 03/26/17 06/13/21 Yulissa Purvis DO [address] [place] [address] Historical LMR Provider 03/26/17 2 Jessi Rivero, [place] Historical LMR Provider 03/26/17 06/13/21 Eloina Ash MD 4 [facility] Orthopedics & Sports [facility], [place] [address] Historical LMR Provider 03/26/17 Edilma Chase MD [address] [place] [address] 7 [place] [address] Historical LMR Provider 03/26/17 Maribell Mendoza MD [address] [place] [address] Orthopedics Sports [facility], [place] [address] [email or web address] Historical LMR Provider 03/26/17 06/13/21 Pelon Arellano MD [address] [place], [place] [address] [place] [address] [email or web address] Historical LMR Provider 03/26/17 Luh Ayala MD [address] [place] [address] 7 [place] [address] [email or web address] Insurance Assigned Provider 09/03/17 09/11/22 Yulissa Vigil, RN [address] [place] [address] [facility] [employer] 12/12/19 12/25/24 Elizabeth Batista [address] [place] [address] [facility] Community Health Worker 02/28/20 04/16/20 Elizabeth Batista [address] [place] [address] [email or web address] Worker 2/11/21 9/20/21 Elizabeth Batista [address] [place] [address], [place] [address] [email or web address] Community Health Worker 07/09/21 07/23/21 Elizabeth Batista [address] [place] [address], [place] [address] [email or web address] Community Health Worker 07/09/21 11/04/21 Elizabeth Batista [address] [place] [address], [place] [address] [email or web address] Community Health Worker 10/29/21 01/31/22 Elizabeth Batista [address] [place] [address], [place] [address] [email or web address] 03/01/22 03/03/[address] [address] [email or web address] Community Health Worker 04/26/22 06/02/22 Chan Jacobo MD [address] [place] [address] [place] [address] [email or web address] Insurance Assigned Provider 09/11/22 09/10/23 Pcp, Not Required [address] [place] [address] 02/09/23 Edilma Chase MD [address] [place] [address] 7 [place] [address] [email or web address] Family Medicine 02/09/23 03/28/23 Edilma Chase MD [address] [place], [place] [address] [place] [address] [email or web address] Family Medicine 02/09/23 03/28/23 Edilma Chase MD [address] [place] [address] 7 [place] [id number] [email or web address] Insurance Assigned Provider 09/10/23 Elizabeth Batista [address] [place] [address] [email or web address] [facility] 11/18/23 01/22/24 documented as of this encounter Additional Source Comments The information contained in this document represents components of the legal health record. It is not the complete legal health record.[facility]
--- OUTSIDE RECORDS SUMMARY | 2025-01-28 14:36 | XMS_ITS | Encounter Summary ---
Author Organization [facility] Address [address] [place] [address] Phone Care Team Providers Care Special Education Resource Teacher Name Role Phone Larry Payne MD Unavailable Roger Frank MD Unavailable Felipe Brooks MD Unavailable [phone] Tr West MD Unavailable [phone] Mannie Pino PA-C Unavailable [phone] Yulissa Purvis DO Unavailable [phone] Unavailable [email or web address] Eloina Ash MD Unavailable Edilma Chase MD Unavailable [phone] Maribell Mendoza MD Unavailable [phone] Pelon Arellano MD Unavailable Gaye Pate [facility] Primary Care Provider [phone] Luh Ayala MD Unavailable [phone] Yulissa Vigil RN Unavailable [phone] Elizabeth Batista Unavailable [phone] Elizabeth Batista Unavailable [phone] Elizabeth Batista Unavailable [phone] Elizabeth Batista Unavailable [phone] Elizabeth Batista Unavailable [phone] Elizabeth Batista Unavailable [phone] Elizabeth Batista Unavailable [phone] Chan Jacobo MD Unavailable Edilma Chase MD Primary Care Provider Pcp, Not Required Unavailable Unavailable Edilma Chase MD Unavailable [phone] Edilma Chase MD Unavailable Edilma Chase MD Primary Care Provider [phone] Edilma Chase MD Primary Care Provider [phone] Edilma Chase MD Unavailable [phone] LesterRamas Unavailable [phone] Reason for Referral * MRI/CAT Scan - Closed Specialty Diagnoses / Procedures Referred By Varsha mckinney Referred To Contact Radiology Diagnoses Neuropathy Procedures MRI Brain Kadie Pascual MD Phone: tel: fax: Referral ID Status Reason Start Date Expiration Date Visits Re quested Visits Authorized [id number] Closed 07/31/2019 07/30/2020 1 1 Encounter Details Date Type Department Care Team (Latest Contact Info) Description 07/31/2019 Transcribe Orders Virtual Department [address] [place] [address] Kadie Pascual MD [address] [place] [address] [phone] Neuropathy (Primary Dx) Social History Tobacco Use Types Packs/Day Years Used Date Smoking Tobacco: Former Cigarettes 0.5 15 2 2017 Smokeless Tobacco: Never Alcohol Use Standard [...] Description 02/12/2025 4:30 PM EDT Office Visit [facility] [address] [place] [address] Edilma Chase MD [address] [facility], [address] [place] [address] documented as of this encounter Results * MRI BRAIN WITH AND WITHOUT CONTRAST (08/06/2019 2:56 PM EST) Anatomical Region Laterality Modality Head Magnetic Resonan ce 08/06/2019 3:01 PM EST Impressions 08/06/2019 3:10 PM EST Widespread white matter lesions in the periventricular, subcortical and pontine regions in a pattern strongly suggesting multiple sclerosis. No other intracranial pathology is apparent. POS - [id number] Narrative 08/06/2019 3:10 PM EST TECHNIQUE: 1.5 Lona high-field MRI scanner. Axial T1, T2, T2 FLAIR and diffusion-weighted with ADC map, sagittal T1 and FLAIR, followed by post-gadolinium axial and sagittal T1 sequences . Compare to non-enhanced CT 03/15/2016. FINDINGS: There are innumerable globular areas of T2 hyperintensity in the periventricular and subcortical white matter. Many of these are oriented perpendicular to the ventricular system in a classic Hanson's fingers pattern typical of multiple sclerosis. There is also diffusely increased signal throughout the dafne. There is no abnormal enhancement in any of these lesions nor elsewhere. No evidence of ischemia, infarct, hemorrhage or a mass. Mild generalized atrophy and commensurate fullness of the ventricular system. Basilar cisterns widely patent. No cerebellar tonsillar ectopia nor signs of elevated intracranial pressure. No pituitary, pineal region or intraorbital pathology. Normal flow-voids are present in the major vessels of the [place] and the dural venous sinuses. No inflammatory changes in the paranasal sinuses or mastoid air cells. Procedure Note Mannie Mac MD - 08/06/2019 TECHNIQUE: 1.5 Lona high-field MRI scanner. Axial T1, T2, T2 FLAIR and diffusion-weighted with ADC map, sagittal T1and FLAIR, followed by post-gadolinium axial and sagittal T1 sequences . Compare to non-enhanced CT 03/15/2016. FINDINGS: There are innumerable globular areas of T2 hyperintensity in theperiventricular and subcortical white matter. Many of these are orientedperpendicular to the ventricular system in a classic Hanson's fingers pattern typical of multiple sclerosis. There is also diffusely increased signal throughout the dafne. There is no abnormal enhancement in any of these lesions nor elsewhere. No evidence of ischemia, infarct, hemorrhage or a mass. Mild generalized atrophy and commensurate fullness of the ventricularsystem. Basilar cisterns widely patent. No cerebellar tonsillar ectopianor signs of elevated intracranial pressure. No pituitary, pineal region or intraorbital pathology. Normal flow-voids are present in the major vessels of the [place] the dural venous sinuses. No inflammatory changes in the paranasal sinuses or mastoid air cells. IMPRESSION: Widespread white matter lesions in the periventricular, subcortical andpontine regions in a pattern strongly suggesting multiple sclerosis. Noother intracranial pathology is apparent. POS - [id number] Kadie Pascual MD IMG MR HEAD/NECK Final Result documented in this encounter Visit Diagnoses Diagnosis Neuropathy- Primary Mononeuritis of unspecified site Neuropathy Mononeuritis of unspecified site documented in this encounter Additional Health Concerns [...] documented as of this encounter Care Teams Special Education Resource Teacher Relationship Specialty Start Date End Date Gaye Patez, MELT HOUSE CENTRIFUGAL OPERATOR [address] [facility], 2nd [place] [address] [email or web address] PCP - General 06/21/17 01/27/23 Edilma Chase MD [address] [place] [address] [email or web address] PCP - General Family Medicine 01/28/23 01/31/23 Edilma Chase MD [address] [place] [address] [email or web address] PCP - General Family Medicine 02/09/23 03/28/23 Edilma Chase MD [address] [place] [address] [email or web address] PCP - General Family Medicine 04/01/23 Larry Payne MD [address] [place] [address] 1st Floor -[address] [place] [address] Historical LMR Provider 03/26/17 2 Roger Frank MD [address] [place] [address], [address] [place] [address] [email or web address] Historical LMR Provider 03/26/17 Felipe Brooks MD [address] [place] [address] Historical LMR Provider 03/26/17 Tr West MD [address] [place] [address] [email or web address] Historical LMR Provider 03/26/17 06/13/21 Mannie Pino PA-C [address] [place] [address] Orthopedics & Sports [facility], [place] [address] Historical LMR Provider 03/26/17 06/13/21 Yulissa Purvis DO [address] [place] [address] Historical LMR Provider 03/26/17 2 Jessi Rivero, RDCS Historical LMR Provider 03/26/17 06/13/21 Eloina Ash MD [address] [place] [address] Orthopedics & Sports Medicine, [facility] [place] [address] Historical LMR Provider 03/26/17 Edilma Chase MD [address] [place] [address] 7 [place] [address] Historical LMR Provider 03/26/17 Maribell Mendoza MD [address] [place] [address] Orthopedics & Sports Medicine, [facility] [place] [address] [email or web address] Historical LMR Provider 03/26/17 06/13/21 Pelon Arellano MD [address] [facility] [address] [place] [phone] [email or web address] Historical LMR Provider 03/26/17 Luh Ayala MD [address] [place] [address] [address] [place] [address] [email or web address] Insurance Assigned Provider 09/03/17 09/11/22 Yulissa Vigil RN [address] [place] [address] [email or web address] [facility] Grit Removal Operator 12/12/19 12/25/24 Elizabeth Batista [address] [place] [address] [email or web address] [facility] Community Health Worker 02/28/20 04/16/20 Elizabeth Batista [address] [place] [address] [email or web address] [facility] Community Health Worker 07/17/20 02/23/21 Elizabeth Batista [address] [place] [address] [facility] Community Health Worker 07/09/21 07/23/21 Elizabeth Batista [address] [place] [address] [facility] Community Health Worker 07/09/21 11/04/21 Elizabeth Batista [address] [place] [address] [facility] Community Health Worker 10/29/21 01/31/22 Elizabeth Batista [address] [place] [address] 03/01/22 03/03/22 Elizabeth Batista [address] [place] [address] [facility] Community Health Worker 04/26/22 06/02/22 Chan Jacobo MD [address] [place] [address] 7 [place] [phone] Insurance Assigned Provider 09/11/22 09/10/23 Pcp, Not Required [address] [place] [address] 02/09/23 Edilma Chase MD [address] [place] [address] [place] [address] Family Medicine 02/09/23 03/28/23 Edilma Chase MD [address] [place] [address] 7 [place] [address] [email or web address] Family Medicine 02/09/23 03/28/23 Edilma Chase MD [address] [place] [address] [place] [address] [email or web address] Insurance Assigned Provider 09/10/23 Elizabeth Batista [address] [place] [address] [facility] Community Health Worker 11/18/23 01/22/24 documented as of this encounter Additional Source Comments The information contained in this document represents components of the legal health record. It is not the complete legal health record.[facility]
--- OUTSIDE RECORDS SUMMARY | 2025-01-28 14:36 | XMS_ITS | Encounter Summary ---
Author Organization [facility] Address [address] [place] [address] Phone Care Team Providers Care Director Speech And Hearing Name Role Phone Larry Payne MD Unavailable Roger Frank MD Unavailable Felipe Brooks MD Unavailable [phone] Tr West MD Unavailable [phone] Mannie Pino PA-C Unavailable [phone] Yulissa Purvis DO Unavailable [phone] Unavailable [email or web address] Eloina Ash MD Unavailable Edilma Chase MD Unavailable [phone] Maribell Mendoza MD Unavailable [phone] Pelon Arellano MD Unavailable Gaye Pate [facility] Primary Care Provider [phone] Luh Ayala MD Unavailable [phone] Yulissa Vigil RN Unavailable [phone] Elizabeth Batista Unavailable [phone] Elizabeth Batista Unavailable [phone] Lester, Elizabeht Unavailable [phone] Elizabeth Batista Unavailable [phone] Elizabeth Batista Unavailable [phone] Elizabeth Batista Unavailable [phone] Elizabeth Batista Unavailable [phone] Chan Jacobo MD Unavailable Edilma Chase MD Primary Care Provider Pcp, Not Required Unavailable Unavailable Edilma Chase MD Unavailable [phone] Edilma Chase MD Unavailable Edilma Chase MD Primary Care Provider [phone] Edilma Chase MD Primary Care Provider [phone] Edilma Chase MD Unavailable Elizabeth Batista Unavailable [phone] Encounter Details Date Type Department Care Team (Late st Contact Info) Description 01/29/2019 Ancillary Orders [facility], X-Ray - [address] [place] [address] Martin Priest MD [address] [place] [address] [email or web address] Pain Social History Tobacco Use Types Packs/Day [...] 02/12/2025 4:30 PM EDT Office Visit [facility] [address] [place] [address] Edilma Chase MD [address] [place] [address], [address] [place] [address] [email or web address] documented as of this encounter Results * XR HIP 2 VW RIGHT PLUS PELVIS (01/29/2019 7:53 PM EDT) Anatomical Region Laterality Modality Hip, Pelvis Radiographic Kaylynn ging 01/29/2019 8:12 PM EDT Impressions 01/29/2019 8:13 PM EDT No acute bone abnormality. POS - CDH-RW Narrative 01/29/2019 8:13 PM EDT HISTORY: - PAIN [SIGN/SX] TECHNIQUE: Two views of the right hip obtained. An AP view of the pelvis is added. COMPARISON: 02/01/2015 FINDINGS: There is no acute fracture, subluxation or dislocation. The hip joint spaces are preserved. The sacroiliac joints are unremarkable. Procedure Note Aiden Alvarado MD - 01/29/2019 HISTORY: - PAIN [SIGN/SX] TECHNIQUE: Two views of the right hip obtained. An AP view of the pelvisis added. COMPARISON: 02/01/2015 FINDINGS: There is no acute fracture, subluxation or dislocation. The hip joint spaces are preserved. The sacroiliac joints areunremarkable. IMPRESSION: No acute bone abnormality. POS - CDH-RW Martin Priest MD IMG XR PELVIS Final Result * XR LUMBOSACRAL SPINE 2-3 VIEWS (01/29/2019 7:53 PM EDT) Anatomical Region Laterality Modality L-spine Radiographic Kaylynn ging 01/29/2019 8:03 PM EDT Impressions 01/29/2019 8:12 PM EDT 1. No acute bone abnormality. 2. Mild degenerative changes, not significantly changed from the previous years MRI. POS - CDH-RW Narrative 01/29/2019 8:12 PM EDT CLINICAL HISTORY: - PAIN [SIGN/SX] TECHNIQUE: AP, lateral and lateral spot views of the lumbar spine obtained. COMPARISON: 04/10/2018 lumbar spine MRI FINDINGS: Vertebral body alignment is within physiologic limits. There is mild anterior osteophytic spurring. There is relative preservation of the residual disc spaces. There is no fracture. The prevertebral soft tissues are unremarkable. Procedure Note Aiden Alvarado MD - 01/29/2019 CLINICAL HISTORY: - PAIN [SIGN/SX] TECHNIQUE: AP, lateral and lateral spot views of the lumbar spineobtained. COMPARISON: 04/10/2018 lumbar spine MRI FINDINGS: Vertebral body alignment is within physiologic limits. There is mild anterior osteophytic spurring. There is relativepreservation of the residual disc spaces. There is no fracture. The prevertebral soft tissues are unremarkable. IMPRESSION: 1. No acute bone abnormality. 2. Mild degenerative changes, not significantly changed from the previousyears MRI. POS - CDH-RW Martin Priest MD IMG XR SPINE Final Result * XR RIBS 3 OR MORE VIEWS WITH PA CHEST (RIGHT) (01/29/2019 7:52 PM EDT) Anatomical Region Laterality Modality Chest Radiographic Kaylynn ging 01/29/2019 8:13 PM EDT Impressions 01/29/2019 8:14 PM EDT No pneumothorax or acute rib injury. POS - CDH-RW Narrative 01/29/2019 8:14 PM EDT CLINICAL HISTORY: - PAIN [SIGN/SX] TECHNIQUE: Three views of the right ribs obtained. A PA view of the chest is added. COMPARISON: None. FINDINGS: The heart and mediastinum are normal sized. There is no focal consolidation or infiltrate. There is no fracture or focal rib lesion. There is no pneumothorax. Procedure Note Aiden Alvarado MD - 01/29/2019 CLINICAL HISTORY: - PAIN [SIGN/SX] TECHNIQUE: Three views of the right ribs obtained. A PA view of the chestis added. COMPARISON: None. FINDINGS: The heart and mediastinum are normal sized. There is no focal consolidation or infiltrate. There is no fracture or focal rib lesion. There is no pneumothorax. IMPRESSION: No pneumothorax or acute rib injury. POS - CDH-RW us Martin Priest MD IMG XR CHEST Final Result documented in this encounter Visit Diagnoses Diagnosis Pain Generalized pain Pain Generalized pain Pain Generalized pain Pain Generalized pain documented in this encounter [...] documented as of this encounter Care Teams Director Speech And Hearing Relationship Specialty Start Date End Date Gaye Pate CNP [address] [place] [address], [address] [place] [address] [email or web address] PCP - General 06/21/17 01/27/23 Edilma Chase MD [address] [place] [address] 7 [place] [address] [email or web address] PCP - General Family Medicine 01/28/23 01/31/23 Edilma Chase MD [address] [facility] 7 [place] [address] [email or web address] PCP - General Family Medicine 02/09/23 03/28/23 Edilma Chase MD 234 [facility] 7 [place] [address] [email or web address] PCP - General Family Medicine 04/01/23 Larry Payne MD [address] [place] [address] [address] Historical LMR Provider 03/26/17 2 Roger Frank MD [address] [place] [address] [email or web address] Historical LMR Provider 03/26/17 Felipe Brooks MD [address] [place] [address] Historical LMR Provider 03/26/17 Tr West MD [address] [place] [address] [email or web address] Historical LMR Provider 03/26/17 06/13/21 Mannie Pino PA-C [address] [place] [address] Orthopedics & Sports Medicine, [place] [address] [email or web address] Historical LMR Provider 03/26/17 06/13/21 Yulissa Purvis DO [address] [place] [address] Historical LMR Provider 03/26/17 2 Jessi Rivero, RDCS Historical LMR Provider 03/26/17 06/13/21 Eloina Ash MD [address] [place] [address] Orthopedics Sports [facility], [place] [address] [email or web address] Historical LMR Provider 03/26/17 Edilma Chase MD [address] [place] [address] 7 [place] [address] [email or web address] Historical LMR Provider 03/26/17 Maribell Mendoza MD [address] [place] [address] [facility], [place] [address] [email or web address] Historical LMR Provider 03/26/17 06/13/21 Pelon Arellano MD [address] [place], [place] [address] [place] [address] [email or web address] Historical LMR Provider 03/26/17 Luh Ayala MD [address] [place] [address] 7 [place] [address] [email or web address] Insurance Assigned Provider 09/03/17 09/11/22 Yulissa Vigil, RN [address] [place] [address] [phone] [email or web address]razing Machine Tender 12/12/19 12/25/24 Elizabeth Batista [address] [place] [address] [phone] [email or web address] Community Health Worker 02/28/20 04/16/20 Elizabeth Batista [address] [place] [address], [place] [address] [email or web address] Community Health Worker 07/17/20 02/23/21 Elizabeth Batista [address] [place] [address], [place] [address] [email or web address] Community Health Worker 07/09/21 07/23/21 Elizabeth Batista [address] [place] [address], [place] [address] [email or web address] Community Health Worker 07/09/21 11/04/21 Elizabeth Batista [address] [place] [address], [place] [address] [email or web address] Community Health Worker 10/29/21 01/31/22 Elizabeth Batista [address] [place] [address] [email or web address] 03/01/22 03/03/[address] [address] [email or web address] Community Health Worker 04/26/22 06/02/22 Chan Jacobo MD [address] [place] [address] 7 [place] [address] [email or web address] Insurance Assigned Provider 09/11/22 09/10/23 Pcp, Not Required [address] [place] [address] 02/09/23 Edilma Chase MD [address] [place] [address] 7 [place] [address] [email or web address] Family Medicine 02/09/23 03/28/23 Edilma Chase MD [address] [place] [address] 7 [place], [place] [phone] [email or web address] Medicine 02/09/23 03/28/23 Edilma Chase MD [address] [place] [address] 7 [place] [address] [email or web address] Insurance Assigned Provider 09/10/23 Elizabeth Batista [address] [place] [address] [email or web address] Community [facility] Work[facility] 11/18/23 01/22/24 documented as of this encounter Additional Source Comments The information contained in this document represents components of the legal health record. It is not the complete legal health record.[facility]
== END 2025-01-28 13:47 | disposition home or self-care (01) ==
LOC: HO.PMC 13:16
PROVIDERS: PCP Family Medicine; Visit Provider Internal Medicine
DX: G62.9 Polyneuropathy, unspecified (principal)
CPT/HCPCS: 99204

== ENCOUNTER → 2025-01-28 13:16 | Outpatient (BNVA) | payer MEDICARE, SELFPAY | PROVIDERS: PCP Family Medicine; Visit Provider Internal Medicine | DX: G62.9 Polyneuropathy, unspecified (principal) | CPT/HCPCS: 99202 ==